=== PATIENT | male | born 1965 | race Caucasian/White ===

== ENCOUNTER → 2020-03-03 14:16 | Outpatient (CLI) | payer OTHER, SELFPAY ==
--- NOTE | ~2020-03-03 | CT_ITS ---
EXAMINATION: CT abdomen pelvis wo con EXAM DATE: 03/03/2020 14:29 INDICATION: Irreducible hernia anterior abdominal wall. TECHNIQUE: Spiral CT of the abdomen and pelvis was performed without contrast. Axial, coronal and s agittal images were reviewed. The dose-length product (DLP) for this examination was 1059.87 mGy-cm. The exposure was tailored according to patient size (auto mA exposure control), and iterative recon struction (ASIR) was used as additional dose reduction technique. There is no prior study for compar jeannette. FINDINGS: There is large multilobulated umbilical fat-containing hernia. The liver, spleen, adrenal glands and pancreas are unremarkable. Gallbladder is unremarkable. No biliary obstruction. Left hi lar calcifications, could be nonobstructing kidney stone or stones, largest measuring 6 mm. The pros jeong is unremarkable. The bladder is unremarkable. There is no retroperitoneal or pelvic lymphadeno cordelia. The appendix is normal. The stomach and small bowel are unremarkable. There is expected amount of c olonic stool. No free intraperitoneal gas. The heart is normal in size. There are no pericardial or pleural effusions. The lung bases are unremarkable. There are no osteoblastic or osteolytic les ions identified. IMPRESSION: 1. Large lobulated umbilical fat-containing hernia. 2. Left nephrolithiasis. Reviewed, dictated and finalized at location B.
== END ==
PROVIDERS: PCP Physician Assistant; Visit Provider Surgery
DX: K42.9 Umbilical hernia without obstruction or gangrene (principal); N20.0 Calculus of kidney
CPT/HCPCS: 74176

== ENCOUNTER 2020-04-22 10:17 | Outpatient (CLI) | payer OTHER, SELFPAY ==
[2020-04-22 11:00] LABS: Anion Gap 7 mmol/L (8-16); Blood Urea Nitrogen 24 mg/dL (9-20); Calcium 9.1 mg/dL (8.4-10.2); Carbon Dioxide 30 mmol/L (22-30); Chloride 103 mmol/L (98-107); Estimated Glomerular Filt Rate > 60; Glucose 123 mg/dL (75-110); Potassium 4.3 mmol/L (3.4-5.0); Sodium 140 mmol/L (137-145)
== END 2020-04-22 10:18 | disposition home or self-care (01) ==
LOC: ANHSURGERY 10:20
PROVIDERS: Anesthesiology; PCP Physician Assistant; Visit Provider Surgery
DX: Z01.812 Encounter for preprocedural laboratory examination (principal); K46.9 Unspecified abdominal hernia without obstruction or gangrene; I10 Essential (primary) hypertension
CPT/HCPCS: 36415; 80048; 86850; 86900; 86901

== ENCOUNTER 2020-04-30 01:26 | Outpatient (CLI) | payer OTHER, SELFPAY ==
[2020-04-30 19:10] LABS: SARS-CoV-2 RNA PCR Negative
== END 2020-04-30 01:27 | disposition home or self-care (01) ==
LOC: ANHCOVIDDT 01:26
PROVIDERS: PCP Physician Assistant; Visit Provider Surgery
DX: Z01.818 Encounter for other preprocedural examination (principal); Z20.828 Contact with and (suspected) exposure to other viral communicable diseases
CPT/HCPCS: 87635; C9803; U0003

== ENCOUNTER 2020-05-03 00:45 | Day surgery (SDC) | payer OTHER, SELFPAY ==
[2020-04-21 13:52] VITALS: BMI 21.5
--- NOTE | 2020-05-02 13:05 | P.PNAN_ITS ---
Anes - Initial Pre Proc Eval Procedure: Operation Date: 05/03/20 07:30 Proposed Procedures p Laparoscopic Incarcerated Ventral Hernia Repair With Mesh, Davinci Assisted - Angel Sales DO Date/Time: 05/02/20 13:05 Surgeon: Angel Sales DO Pre Op Diagnosis: Ventral hernia with obstruction/without gangrene Patient Data Age: 54 Gender: M Height: 1.87 m Weight: 75 kg Allergies Allergy/AdvReac Type Severity Reaction Status Date / Time Penicillins Allergy Unknown Unknown Verified 04/21/20 13:44 Home Medications Medication Instructions Recorded Confirmed Type hydrochlorothiazide 25 mg tablet 25 mg PO DAILY 02/02/20 04/21/20 History levothyroxine 88 mcg capsule 88 mcg PO DAILY 02/02/20 04/21/20 History nebivolol 5 mg tablet 5 mg PO DAILY 02/02/20 04/21/20 History olmesartan 40 mg tablet 40 mg PO DAILY 02/02/20 04/21/20 History Patient hx anesthesia problems: none Family hx anesthesia problems: none [facility] Past Medical History Medical History HTN (hypertension) Kidney stone Thyroid disease Surgical History Surgical History History of colonoscopy History of surgery on arm Family History Family History Father Diabetes mellitus Hypertension Dementia Mother Lung cancer Sibling Diabetes mellitus Social History Social History Smoking status: Never smoker Alcohol intake: never Substance use: unknown 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 Questions were solicited and answers provided to the satisfaction of the patient/family/POA.
[2020-05-03] VITALS (8 sets, daily range): BP systolic 107–145; BP diastolic 71–87; PULSE 52–64; RESP 8–20; TEMP 36.1–36.3; O2SAT 97–100
[2020-05-03] MEDS: LACTATED RINGERS 1,000 ML 30 ML IV CONT ×2 (06:21→11:31)
[2020-05-03 06:25] LABS: Glucose Point of Care 102 (65-105)
[2020-05-03] MEDS: ACETAMINOPHEN 500 MG TABLET 1000 MG PO (06:26)
[2020-05-03] MEDS: KETOROLAC 15 MG/ML VIAL (*BKC) IV PUSH (06:28)
--- NOTE | 2020-05-03 06:36 | ECG_ITS ---
Measurements Intervals [place] Rate: 49 P: 21 OR: 173 QRS: 69 QRSD: 124 T: 53 QT: 455 QTc: 414 Interpretive Statements SINUS BRADYCARDIA INTRAVENTRICULAR CONDUCTION DELAY BORDERLINE T WAVE ABNORMALITY- ANTERIOR LEADS BORDERLINE ECG Electronically Signed On 05-03-2020 8:08:39 KIER BOILER by Taz Barney D.O.
--- NOTE | 2020-05-03 07:04 | PM.IMHP ---
H&P: HPI History of Present Illness Date/Time: 05/03/20 07:04 Chief complaint: Ventral hernia with obstruction/without gangrene Narrative: Freddie Ling Jr. is a 54 year old male who presents for ventral hernia repair. He has a large ventral hernia that has become larger over the years. He denies any changes since last seen. Review of Systems Review of Systems: All systems reviewed & are unremarkable except as noted in HPI and below Constitutional: Constitutional: Denies chills, Denies fever(s), Denies headache(s) and Denies weight loss Eyes: Eyes: Denies change in vision ENT: Denies dizziness, Denies headache(s), Denies neck mass and Denies throat swelling Cardiovascular: Cardiovascular: Denies chest pain, Denies lightheadedness and Denies dyspnea Respiratory: Respiratory: Denies cough, Denies dyspnea and Denies wheezing Gastrointestinal: Gastrointestinal: Denies abdominal pain, Denies change in bowel habits, Denies nausea and Denies vomiting Genitourinary: Genitourinary: Denies hematuria and Denies dysuria Musculoskeletal: Musculoskeletal: Reports as per HPI Integumentary/Breasts: Skin/Breast: Reports as per HPI Neurologic: Denies dizziness and Denies headache(s) Allergic/Immunologic: Allergic/Immunologic: Denies throat swelling and Denies wheezing PMFSH Past Medical History Medical History HTN (hypertension) Kidney stone Thyroid disease Surgical History Surgical History History of colonoscopy History of surgery on arm Family History Family History Father Diabetes mellitus Hypertension Dementia Mother Lung cancer Sibling Diabetes mellitus Social History Social History Smoking status: Never smoker Alcohol intake: never Substance use: unknown Living arrangements: with family 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 Gender identity (if verbalized by the patient): Male Meds Home Medications and Allergies Home Medications Medication Instructions Recorded Confirmed Type hydrochlorothiazide 25 mg tablet 25 mg PO DAILY 02/02/20 05/03/20 History levothyroxine 88 mcg capsule 88 mcg PO DAILY 02/02/20 05/03/20 History nebivolol 5 mg tablet 5 mg PO DAILY 02/02/20 05/03/20 History olmesartan 40 mg tablet 40 mg PO DAILY 02/02/20 05/03/20 History Allergies Allergy/AdvReac Type Severity Reaction Status Date / Time Penicillins Allergy Unknown Unknown Verified 05/03/20 06:15 Vital Signs Vital Signs - 24 hr 05/03/20 06:03 Temperature 36.1 C L Pulse Rate 60 Respiratory Rate 20 Blood Pressure 145/75 H Pulse Oximetry 99 Exam Const: General: no acute distress and alert Orientation/consciousness: patient oriented x3 HENMT: Head: normocephalic and atraumatic Ears: hearing grossly normal bilaterally General nose exam: Normal nares present Mouth: Yes Normal oral and palatal mucosa present Eyes: Periorbital: periorbital findings normal Sclera: sclerae normal EOM: EOMs intact bilaterally Neck: Neck: normal visual inspection, no lymphadenopathy and trachea midline Chest: Chest palpation & inspection: normal inspection of the chest Resp: Effort & Inspection: normal respiratory effort Auscultation: clear to auscultation bilaterally Cardio: Jugular venous distension: no JVD Rate: regular rate Rhythm: regular rhythm Heart sounds: S1 normal heart sound present and S2 normal heart sound present Peripheral pulses: Peripheral pulses 2+ throughout GI: Inspection: normal to inspection GI Palp: Yes Soft to palpation, No Tenderness to palpation present (GI), No Guarding due to palpation present (GI), Yes Hernia present (6cm ventral hernia) and No Rebound tenderness present Percussion: Yes normal to percussion Auscultation: normal bowel sound
--- NOTE | 2020-05-03 07:10 | WPDHPUPDATE1 ---
History and Physical Update Update Date/Time: 05/03/20 07:10 History and Physical has been reviewed, including an updated exam of the patient. There are NO changes in the patient's condition. Risks, benefits, and alternatives have been discussed and questions answered. Patient agrees to proceed with procedure.
--- NOTE | 2020-05-03 07:12 | WPDANESPNB ---
Anes - Peripheral Nerve Block Date/Time: 05/03/20 07:12 I have discussed with the patient/family/POA the placement of a peripheral nerve block for post-operative pain management, including associated risks, benefits, complications, and side effects. Alternative methods of post-operative analgesia were detailed. Questions were solicited and answers provided to the satisfaction of the patient/family/POA. Time-Out: A pre-procedural Time-Out was completed immediately before starting the procedure and confirmed: Patient Identification, Site, Procedure, Patient Position and the Availability of Requisite Equipment. Clinical Indications: Acute post-operative pain management requested by the operative surgeon. Nerve Block Insertion Note Anes-nerve block: other (B/L SERA block) Patient position: other (sitting) Skin prep: chlorhexidine Needle: 22 gauge, stimulating, insulated echogenic needle. Needle length: 80 mm Technique: ultrasound Injectate: bupivacaine 0.25% with epi 5 mcg/ml (30cc/30cc) Observations: tolerated well Complications: none Procedure start time:: 719 Procedure end time:: 734
[2020-05-03] MEDS: ceFAZolin 2 GM/D5W 50 ML 2 GM/50 ML BAG IVPB (07:47)
--- NOTE | 2020-05-03 11:43 | PM.PROC ---
Procedure Note - Detailed Date of procedure: 05/03/20 Pre-op diagnosis: Ventral hernia with obstruction/without gangrene Post-op diagnosis: same Procedure performed: Laparoscopic Incarcerated ventral hernia repair with Symbotex mesh, da Josefa assisted Description of procedure: Procedure as well as risks, benefits, and alternatives were discussed with the patient. Written consent was obtained and placed in chart prior to procedure. Patient was brought back to surgical suite. he was placed supine on operating table. Time-out was done to confirm patient and procedure. he was then intubated by the anesthesia department. A bump was placed under his left hip, and the bed was flexed slightly to extend the space between his costal margin and iliac crest. his abdomen was prepped and draped in sterile fashion using chlorhexidine prep. A 5 millimeter incision was made in the left upper quadrant, and a 5 millimeter Optiview trocar was advanced through the abdominal layers under direct visualization. Once inside the abdominal cavity, carbon dioxide insufflation was used to create a pneumoperitoneum. his abdomen was inspected. An 8 millimeter incision was made in the left lower quadrant, and an 8 millimeter robotic trocar was placed under direct visualization. Another 8 millimeter incision was made in the left lateral abdomen, and an 8 millimeter robotic trocar was placed under direct visualization. Exparel was infiltrated along the lateral abdominal briceño to perform a transversus abdominis plane block bilaterally. The 5 millimeter port was removed, the incision was extended to 12 millimeters, and a 12 millimeter air seal port was placed under direct visualization. A Wero-Contreras cone was also used to place an 0-Vicryl simple interrupted suture at this trocar site. The robotic arms were brought up to the patient's bedside and secured to the ports. The camera and instruments were inserted, and I then moved over to the robotic console and took control of the camera and instruments. After careful thorough inspection of the abdominal cavity, I began my dissection at the hernia. the incarcerated omentum was carefully reduced with scissors with electrocautery. A wide preperitoneal pocket was then created by starting in the left upper quadrant and carefully dissected in within the preperitoneal plane, this was extended down to the hernia defect and the hernia sac was carefully reduced. I then continued the preperitoneal dissection caudally and laterally far enough to allow for mesh placement. I then measured the hernia size. The hernia measured 4 cm x 4 cm. The fascia was closed using an 1-Stratafix running suture in a vertical fashion. A 10cm x 15cm Symbotex mesh was then placed within the preperitoneal pocket. This was oriented vertically with the mesh centered on the hernia defect. The mesh was then secured at the 4 corners and in the central portion of the mesh using 3 0 Vicryl simple interrupted sutures. The mesh appeared to be sitting flat with a wide enough preperitoneal pocket to close. There were a few small tears in the peritoneum that were then repaired using 3 0 Vicryl [id number] sutures. The preperitoneal pocket was then closed using 2 0 V lock running absorbable suture. A laparoscopic aspirating needle was then inserted into the preperitoneal pocket and the air within the pocket was aspirated. The repair was inspected, and one final inspection was made around the abdominal cavity. The robotic instruments were then removed, and the robotic arms were disengaged from the trocars. The ports were then removed under direct visualization, the camera was removed, and the pneumoperitoneum was released. The 0 Vicryl transfascial suture was tied down. The skin of the incisions was then approximated using 4-0 Monocryl subcuticular suture. Exofin glue was then applied on top. The patient was then awakened from anesthesia, extubated, and transferred to re
== END 2020-05-03 13:30 | disposition home or self-care (01) ==
PROVIDERS: PCP Physician Assistant; Visit Provider Surgery
PROC: (CPT 49653; principal; 2020-05-03 07:30)
DX: K43.6 Other and unspecified ventral hernia with obstruction, without gangrene (principal); G89.18 Other acute postprocedural pain; I10 Essential (primary) hypertension; E07.9 Disorder of thyroid, unspecified
CPT/HCPCS: 49653; 64461; S2900; 36415; 80048; 86850; 86900; 86901; 87635; 93005; A9270; C1781; C9290; C9803; J0690; J1100; J1885; J2250; J2405; J2704; J2710; J3010; J7030; J7120; U0003

== ENCOUNTER 2022-11-14 20:42 | Emergency (ER) | payer OTHER, SELFPAY ==
--- NOTE | ~2022-11-14 | XR_ITS ---
EXAMINATION: XR chest 2V DATE: 11/14/2022 21:47 INDICATION: Bilateral lower limb edema TECHNIQUE: PA and lateral views of the chest are obtained. COMPARISON: None available FINDINGS: The lungs are free of acute opacities. No pleural effusion or pneumothorax. The cardiomedia stinal silhouette is normal. There is moderate thoracic spondylosis. IMPRESSION: 1. No acute cardiopulmonary abnormality. Reviewed, dictated and finalized at location F.
--- NOTE | ~2022-11-14 | US_ITS ---
EXAMINATION: US venous doppler [facility] DATE: 11/14/2022 22:58 INDICATION: Bilateral lower limb swelling TECHNIQUE: Curry scale images without and with compression and Doppler images of the bilateral lower e xtremity veins were obtained. COMPARISON: None FINDINGS: The right common femoral vein, profunda femoral vein, femoral vein, popliteal vein, peroneal trunk, p osterior tibial veins, and greater saphenous vein are patent. The left common femoral vein, profunda femoral vein, femoral vein, popliteal vein, peroneal trunk, po sterior tibial veins, and greater saphenous vein are patent. IMPRESSION: 1. Patent bilateral lower extremity veins. No evidence of deep venous thrombosis. Reviewed, dictated and finalized at location F. IMPRESSION: 1. Patent bilateral lower extremity veins. No evidence of deep venous thrombosi s.
--- NOTE | 2022-11-14 20:44 | ECG_ITS ---
Measurements Intervals [place] Rate: 63 P: 33 HI: 160 QRS: 72 QRSD: 106 T: 61 QT: 419 QTc: 432 Interpretive Statements SINUS RHYTHM COMPARED TO ECG 05/03/2020 07:19:06 SINUS RHYTHM NOW PRESENT Electronically Signed On 11-15-2022 10:51:32 CDT by Sebas James M.D.
[2022-11-14 21:07] VITALS: BP 165/84; PULSE 74; RESP 20; TEMP 36.3; O2SAT 99
[2022-11-14 21:20] LABS: Basophils Absolute Auto 0.1 K/mm3 (0.0-0.1); Basophils Percent Auto 0.8 % (0.2-1.2); Eosinophils Absolute Auto 0.2 K/mm3 (0-0.3); Eosinophils Percent Auto 2.9 % (0-4.4); Hematocrit 46.8 % (42.0-52.0); Hemoglobin 15.5 g/dL (14.0-18.0); Immature Granulocyte Absolute 0.04 K/mm3 (0.00-0.031); Immature Granulocyte Percent A 0.6 % (0-0.5); Lymphocytes Absolute Auto 2.21 K/mm3 (0.9-3.2); Lymphocytes Percent Auto 33.8 % (18.3-44.2); Mean Corpuscular HGB Conc 33.1 g/dl (32-36); Mean Corpuscular Hemoglobin 30.3 pg (26-34); Mean Corpuscular Volume 91.6 fl (80-100); Mean Platelet Volume 9.5 fl (7.4-10.4); Monocytes Absolute Auto 0.6 K/mm3 (0.1-0.6); Monocytes Percent Auto 8.9 % (2.6-8.5); Neutrophils Absolute Auto 3.5 K/mm3 (1.3-6.7); Platelet Count Result 184 k/mm3 (150-375); Red Blood Count 5.11 M/mm3 (4.6-6.20); White Blood Count 6.5 K/mm3 (4.5-10.0)
[2022-11-14 21:32] LABS: Partial Thromboplastin Time 30.3 SECONDS (22.3-36.8); Prothrombin Time 13.5 Seconds (11.1-14.7)
[2022-11-14 21:36] LABS: Alanine Aminotransferase 64 U/L (6-50); Albumin Level 4.3 g/dL (3.5-5.1); Alkaline Phosphatase 74 U/L (38-126); Anion Gap 5 mmol/L (8-16); Aspartate Amino Transferase 54 U/L (17-59); Bilirubin,Total 0.7 mg/dL (0.2-1.3); Blood Urea Nitrogen 18 mg/dL (9-20); Calcium 8.6 mg/dL (8.4-10.2); Carbon Dioxide 30 mmol/L (22-30); Chloride 103 mmol/L (98-107); Estimated CRCL calculation 100 ml/min; Estimated Glomerular Filt Rate > 60; Glucose 112 mg/dL (65-110); Potassium 4.5 mmol/L (3.4-5.0); Sodium 138 mmol/L (137-145)
[2022-11-14 21:46] LABS: NT Pro B Type Natriuretic Pept 29 pg/mL (19.9-100); Troponin I < 0.012 ng/mL (0.000-0.034)
[2022-11-14 22:06] VITALS: BP 148/87; PULSE 72; RESP 17; O2SAT 99
--- NOTE | 2022-11-14 23:54 | ED.EXTPRO ---
HPI - Extremity Problem General Chief complaint: Extremity Problem,Nontraumatic <DWAIN Ma Last Filed: 11/15/22 03:30> Stated complaint: pedal edema <DWAIN Ma Last Filed: 11/15/22 03:30> Time Seen by Provider: 11/14/22 22:14 <DWAIN Ma Last Filed: 11/15/22 03:30> Source: patient <DWAIN Ma Last Filed: 11/15/22 03:30> Mode of arrival: ambulatory <DWAIN Ma Filed: 11/15/22 03:30> Limitations: no limitations <DWAIN Ma Last Filed: 11/15/22 03:30> History of Present Illness HPI Narrative: Patient is a 57 y/o male who presents to the ED with c/o lower extremity swelling. Patient reports having intermittent issues with swelling in his lower extremities, but it has become worse over the last 1 week. Swelling is bilateral. He reports it is better in the mornings and gets worse throughout the day and after standing prolonged periods. Does improve somewhat with elevating his legs. He has had some pain in his left leg and has noticed redness and small blistering to his left anterior lower leg over the last couple of days. Patient states he called his primary care doctor and was told it may be too much sodium. He has been eating out frequently lately. Patient denies any history of CHF. Denies history of DVT. Denies chest pain or shortness of breath. Denies fevers. <DWAIN Ma Last Filed: 11/15/22 03:30> Related Data Home medications: Home Medications Medication Instructions Recorded Confirmed hydrochlorothiazide 25 mg tablet 25 mg PO DAILY 02/02/20 06/16/20 levothyroxine 88 mcg capsule 88 mcg PO DAILY 02/02/20 06/16/20 nebivolol 5 mg tablet (Bystolic) 5 mg PO DAILY 02/02/20 06/16/20 olmesartan 40 mg tablet 40 mg PO DAILY 02/02/20 06/16/20 <Anika King PA-C - Last Filed: 11/15/22 03:30> Allergies/Adverse reactions: Allergies Allergy/AdvReac Type Severity Reaction Status Date / Time Penicillins Allergy Unknown Unknown Verified 06/16/20 13:49 <Anika King PA-C - Last Filed: 11/15/22 03:30> Review of Systems Review of Systems: CONSTITUTIONAL: Denies fever, chills, or sweats. CARDIOVASCULAR: Denies chest pain, palpitations. RESPIRATORY: Denies cough or dyspnea. GASTROINTESTINAL: Denies abdominal pain, nausea, vomiting, or diarrhea. GENITOURINARY: Denies dysuria or hematuria. SKIN: See HPI. MUSCULOSKELETAL: See HPI. NEUROLOGIC: Denies headache, numbness, or weakness. <Anika King PA-C - Last Filed: 11/15/22 03:30> All systems reviewed & are unremarkable except as noted in HPI and below <Anika King PA-C - Last Filed: 11/15/22 03:30> [facility] Past Medical History Medical History: Medical History HTN (hypertension) Kidney stone Thyroid disease <Anika King PA-C - Last Filed: 11/15/22 03:30> Surgical History Surgical History: Surgical History History of colonoscopy History of surgery on arm History of ventral hernia repair 05/03/20 Laparoscopic Incarcerated ventral hernia repair with Symbotex mesh, da Josefa assisted <Anika King PA-C - Last Filed: 11/15/22 03:30> Family History Family History: Family History Father Diabetes mellitus Hypertension Dementia Mother Lung cancer Sibling Diabetes mellitus <Anika King PA-C - Last Filed: 11/15/22 03:30> Social History Social History: Social History Smoking status: Never smoker Alcohol intake: never Substance use: unknown Living arrangements: with family Occupation/Education: occupation 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
== END 2022-11-15 00:24 | disposition home or self-care (01) ==
PROVIDERS: Emergency Medicine; Emergency Provider Physician Assistant; PCP Physician Assistant
DX: R60.0 Localized edema (principal); L03.116 Cellulitis of left lower limb; I10 Essential (primary) hypertension; E07.9 Disorder of thyroid, unspecified; Z87.442 Personal history of urinary calculi
CPT/HCPCS: 36415; 71046; 80053; 83880; 84484; 85025; 85610; 85730; 93005; 93970; 99284

== ENCOUNTER 2023-04-18 11:59 | Inpatient (IN) | payer OTHER, SELFPAY ==
--- NOTE | ~2023-04-18 | XR_ITS ---
EXAMINATION: XR tibia fibula LT 2V INDICATION: Left lower limb pain and wound TECHNIQUE: Two views of the tibia and fibula are obtained on four radiographs. COMPARISON: None available FINDINGS: There is diffuse soft tissue swelling of the left lower extremity. Bone alignment is normal . No fracture is identified. Posterior and plantar calcaneal enthesophytes are noted. IMPRESSION: 1. Diffuse soft tissue swelling of the left lower extremity without acute osseous abnormality identif ied. Reviewed, dictated and finalized at location L. E HAND IMPRESSION: 1. Diffuse soft tissue swelling of the left lower extremity without acute osseo us abnormality identified.
--- NOTE | ~2023-04-18 | US_ITS ---
EXAMINATION: US arterial ankle brachial ind DATE: 04/19/2023 13:37 INDICATION: Lower limb edema, discoloration and diminished pulses TECHNIQUE: Segmental pressures and plethysmographic and Doppler waveforms of the brachial and lower e xtremity arteries were obtained. COMPARISON: None. FINDINGS: Right and left brachial artery pressures of 126 mm Hg and 118 mm Hg, respectively, are concordant (no rmal difference <= 30 mmHg). The right ankle-brachial index (PAT) is 1.35 (normal >= 0.9-1.0). The right great toe-brachial index (TBI) is 0.46 (normal >= 0.65). Arterial Doppler waveforms are biphasic with brisk systolic upstrokes at both right posterior tibial and dorsalis pedis arteries. The left PAT is unable to be obtained as patient was unable to tolerate cuff inflation at the left ca lf. The left TBI is 0.57. Arterial Doppler waveforms are biphasic with brisk systolic upstrokes at leo th left posterior tibial and dorsalis pedis arteries. IMPRESSION: 1. Mild arterial occlusive disease with normal right PAT but mildly decreased right TBI. 2. No significant arterial occlusive disease in the left lower limb with normal left TBI. Reviewed, dictated and finalized at location A. MAN IMPRESSION: 1. Mild arterial occlusive disease with normal right PAT but mildly decreased r ight TBI. 2. No significant arterial occlusive disease in the left lower limb with normal left TBI.
--- NOTE | ~2023-04-18 | US_ITS ---
EXAMINATION: US venous doppler [facility] DATE: 04/18/2023 15:24 INDICATION: Bilateral lower limb swelling TECHNIQUE: Curry scale images without and with compression and Doppler images of the bilateral lower e xtremity veins were obtained. COMPARISON: 11/14/2022 FINDINGS: The right common femoral vein, profunda femoral vein, femoral vein, popliteal vein, peroneal trunk, p osterior tibial veins, and greater saphenous vein are patent. The left common femoral vein, profunda femoral vein, femoral vein, popliteal vein, peroneal trunk, po sterior tibial veins, and greater saphenous vein are patent. IMPRESSION: 1. Patent bilateral lower extremity veins. No evidence of deep venous thrombosis. Reviewed, dictated and finalized at location L. ING CLERK IMPRESSION: 1. Patent bilateral lower extremity veins. No evidence of deep venous thrombosi s.
[2023-04-18 12:00] VITALS: BP 161/92; PULSE 84; RESP 20; TEMP 36.6; O2SAT 100
[2023-04-18 12:33] LABS: Basophils Percent Auto 0.3 % (0.2-1.2); Eosinophils Absolute Auto 0.1 K/mm3 (0-0.3); Eosinophils Percent Auto 1.2 % (0-4.4); Hematocrit 43.6 % (42.0-52.0); Hemoglobin 14.1 g/dL (14.0-18.0); Immature Granulocyte Absolute 0.02 K/mm3 (0.00-0.031); Immature Granulocyte Percent A 0.2 % (0-0.5); Lymphocytes Absolute Auto 2.36 K/mm3 (0.9-3.2); Lymphocytes Percent Auto 27.3 % (18.3-44.2); Mean Corpuscular HGB Conc 32.3 g/dl (32-36); Mean Corpuscular Hemoglobin 30.1 pg (26-34); Mean Platelet Volume 9.6 fl (7.4-10.4); Monocytes Absolute Auto 1.5 K/mm3 (0.1-0.6); Monocytes Percent Auto 17.4 % (2.6-8.5); Neutrophils Absolute Auto 4.6 K/mm3 (1.3-6.7); Neutrophils Percent Auto 53.6 % (45.5-73.1); Platelet Count Result 210 k/mm3 (150-375); Red Blood Count 4.69 M/mm3 (4.6-6.20); Red Cell Distribution Width 13.2 % (11.5-14.5); White Blood Count 8.7 K/mm3 (4.5-10.0)
--- NOTE | 2023-04-18 12:34 | ED.EXTPRO ---
HPI - Extremity Problem General Chief complaint: Extremity Problem,Nontraumatic <Jeanna Bradford PA-C - Last Filed: 04/18/23 18:04> Stated complaint: L leg/foot injury <DWAIN Tapia Last Filed: 04/18/23 18:04> Time Seen by Provider: 04/18/23 12:13 <DWAIN Tapia Last Filed: 04/18/23 18:04> History of Present Illness HPI Narrative: 57-year-old male with reported history of prediabetes, hypertension reports for evaluation for left leg swelling, erythema and lesion for the past multiple months. Patient states over the summer, he was trimming his bushes outside when he accidentally nicked his leg with a tree branch. Since then, he has developed an infection to his left lower extremity. States he was treated with antibiotics by his PCP a few months ago. He went to his PCPs office today and was sent to the ED for further evaluation. Reports worsening pain when he is on his feet all day. States he has had drainage from his wound for the past multiple months. He reports subjective fevers, body aches and chills. Denies chest pain or shortness of breath, abdominal pain, cough or congestion. <DWAIN Tapia Last Filed: 04/18/23 18:04> Related Data Home medications: Home Medications Medication Instructions Recorded Confirmed hydrochlorothiazide 25 mg tablet 25 mg PO DAILY 02/02/20 06/16/20 levothyroxine 88 mcg capsule 88 mcg PO DAILY 02/02/20 06/16/20 nebivolol 5 mg tablet (Bystolic) 5 mg PO DAILY 02/02/20 06/16/20 olmesartan 40 mg tablet 40 mg PO DAILY 02/02/20 06/16/20 <DWAIN Tapia Last Filed: 04/18/23 18:04> Allergies/Adverse reactions: Allergies Allergy/AdvReac Type Severity Reaction Status Date / Time Penicillins Allergy Unknown Unknown Verified 06/16/20 13:49 <DWAIN Tapia Last Filed: 04/18/23 18:04> Review of Systems Review of Systems: CONSTITUTIONAL: Denies fever, chills EYES: Denies visual changes, redness, or discharge. ENT: Denies rhinorrhea, congestion, sore throat, or otalgia. CARDIOVASCULAR: Denies chest pain, palpitations, or edema. RESPIRATORY: Denies cough or dyspnea. GASTROINTESTINAL: Denies abdominal pain, nausea, vomiting, or diarrhea. GENITOURINARY: Denies dysuria or hematuria. SKIN: See HPI MUSCULOSKELETAL: Denies back pain, joint pain, or myalgia. NEUROLOGIC: Denies headache, numbness, dizziness, or weakness. PSYCHIATRIC: Denies anxiety or depression. <Jeanna Bradford PA-C - Last Filed: 04/18/23 18:04> [facility] Past Medical History Medical History: Medical History HTN (hypertension) Kidney stone Thyroid disease <Jeanna Bradford PA-C - Last Filed: 04/18/23 18:04> Surgical History Surgical History: Surgical History History of colonoscopy History of surgery on arm History of ventral hernia repair 05/03/20 Laparoscopic Incarcerated ventral hernia repair with Symbotex mesh, da Josefa assisted <Jeanna Bradford PA-C - Last Filed: 04/18/23 18:04> Family History Family History: Family History Father Diabetes mellitus Hypertension Dementia Mother Lung cancer Sibling Diabetes mellitus <Jeanna Bradford PA-C - Last Filed: 04/18/23 18:04> Social History Social History: Social History Smoking status: Never smoker Alcohol intake: never Substance use: unknown Living arrangements: with family Occupation/Education: occupation 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 Patient resting comfortably in exam bed. He is pleasant and conversational.
[2023-04-18 12:41] LABS: INR 1.1; Partial Thromboplastin Time 30.5 SECONDS (22.3-36.8); Prothrombin Time 14.4 Seconds (11.1-14.7)
[2023-04-18 12:44] LABS: Lactic Acid Reflex 1.9 mmol/L (0.7-2.0)
[2023-04-18 12:48] LABS: Alanine Aminotransferase 42 U/L (6-50); Albumin Level 4.6 g/dL (3.5-5.1); Alkaline Phosphatase 86 U/L (38-126); Anion Gap 11 mmol/L (8-16); Aspartate Amino Transferase 35 U/L (17-59); Bilirubin,Total 0.8 mg/dL (0.2-1.3); Blood Urea Nitrogen 22 mg/dL (9-20); CRP 5.6 mg/dL (<1.0); Calcium 9.1 mg/dL (8.4-10.2); Carbon Dioxide 25 mmol/L (22-30); Chloride 103 mmol/L (98-107); Estimated CRCL calculation 96 ml/min; Estimated Glomerular Filt Rate > 60; Glucose 117 mg/dL (65-110); Potassium 3.5 mmol/L (3.4-5.0); Sodium 139 mmol/L (137-145)
[2023-04-18] MEDS: metroNIDAZOLE 500 MG/ISO 100ML 500 MG/100 ML BAG 100 MG IVPB ×2 (13:17→20:39)
[2023-04-18] MEDS: SODIUM CHLORIDE 0.9% IV 1,000 ML 999 ML IV CONT (13:17)
[2023-04-18] MEDS: CEFEPIME 2 GM/NS 50 ML 2 GM/50 ML BAG IVPB ×2 (13:17→20:39)
[2023-04-18 13:26] LABS: Erythrocyte Sedimentation Rate 34 mm/hr (0-20)
[2023-04-18] MEDS: VANCOMYCIN 1,250 MG/NS 250 ML 1,250 MG/250 ML BAG 166.67 MG IVPB ×2 (13:46→16:20)
[2023-04-18 16:21] VITALS: BP 136/78; PULSE 74; RESP 16; O2SAT 100
[2023-04-18 18:41] VITALS: BMI 35.6
[2023-04-18 18:58] VITALS: BP 149/75; PULSE 92; RESP 20; TEMP 36.6; O2SAT 92; BMI 35.9
--- NOTE | 2023-04-18 19:02 | ADMGEN ---
This patient, Freddie Ling Jr., was admitted to Medical Room 342-01. Patient/family oriented to hospital policies and general routines including ID bracelet, bed and alarms, visiting hours, pain management, procedures, bathroom and other care routines, personal items, smoking policy, room service/diet, and visiting hours. Information on how to activate the Rapid Response Team has been discussed. Patient/Family are encouraged to report perceived risks to care and to ask questions if they do not understand what they are told or what they should do.
[2023-04-18] MEDS: MORPHINE SULFATE (*CRX) 4 MG/ML INJ IV PUSH (20:35)
--- NOTE | 2023-04-18 21:35 | PM.IMHP ---
H&P: HPI History of Present Illness Date/Time: 04/18/23 21:35 Chief Complaint: LLE Wound and Pain Narrative: 57 y/o M presents here with LLE swelling, pain, and erythema with shallow wound/lesion with PMH HTN, pre-diabetes, HLD, and hypothyroidism. Patient reports developing erythema and a rash shortly after sustaining shallow abrasion to his left lower extremity after scrapping it against brush while doing yard work. This occured at the end of November (2022). Initially seen by his PCP for cellutitis and was placed on oral Keflex, completed course. Erythema, pain, and rash never fully disappated. Then seen by his PCP a second time for same issue, placed on oral antibiotics again and compelted the course. Rash/pain/erythema improved but did not resolve. Patient attempted to seek care today (04/18) with his PCP, sent here for further evaluation due to spreading wound to his anterior evans and failed PO atb x2. LLE is swollen, hot to the touch, with scant weeping from large shallow wound, yellow in appearance, to his anterior evans that wraps laterally and posterior. No previous hx of DVTs or PE. At baseline has chronic brown discoloration to his BLE, without diagnosis of venous or arterial insufficiency. Endorses associated fevers, body aches, chills. No N/V/D. Review of Systems Review of Systems: All systems reviewed & are unremarkable except as noted in HPI and below [facility] Past Medical History Medical History (Updated 04/18/23 @ 21:48 by Rosanna Waller APRN) Adult BMI 35.0-35.9 kg/sq m HLD (hyperlipidemia) HTN (hypertension) Hypothyroid Kidney stone Pre-diabetes Umbilical hernia with obstruction Surgical History Surgical History History of colonoscopy History of surgery on arm History of ventral hernia repair 05/03/20 Laparoscopic Incarcerated ventral hernia repair with Symbotex mesh, da Josefa assisted Family History Family History Father Diabetes mellitus Hypertension Dementia Mother Lung cancer Sibling Diabetes mellitus Social History Social History (Updated 04/18/23 @ 21:49 by Rosanna Waller APRN) Social History: Lives at home with his son and . Surrogate decision maker: Adela Ling. Code Status: Full Code. 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 Gender identity (if verbalized by the patient): Male Spiritual care concerns: Yes Meds Home Medications and Allergies Home Medications Medication Instructions Recorded Confirmed Type hydrochlorothiazide 25 mg tablet 25 mg PO DAILY 02/02/20 04/18/23 History levothyroxine 88 mcg capsule 88 mcg PO DAILY 02/02/20 04/18/23 History nebivolol 5 mg tablet (Bystolic) 5 mg PO DAILY 02/02/20 04/18/23 History olmesartan 40 mg tablet 40 mg PO DAILY 02/02/20 04/18/23 History Allergies Allergy/AdvReac Type Severity Reaction Status Date / Time Penicillins Allergy Unknown Unknown Verified 06/16/20 13:49 Vital Signs Vital Signs - 24 hr 04/18/23 12:00 04/18/23 16:21 04/18/23 18:41 Temperature 97.8 F Pulse Rate 84 74 Respiratory Rate 20 16 Blood Pressure 161/92 H 136/78 Pulse Oximetry 100 100 Oxygen Delivery Room Air Room Air 04/18/23 18:58 Temperature 97.9 F Pulse Rate 92 Respiratory Rate 20 Blood Pressure 149/75 H Pulse Oximetry 92 Oxygen Delivery Exam Const: General: comfortable and
[2023-04-19] MEDS: HYDROcodone/acetaminophen (*CRX) 5-325 MG TABLET 1 TAB PO (00:32)
[2023-04-19 03:27] VITALS: BP 118/64; PULSE 78; RESP 18; TEMP 36.5; O2SAT 97
[2023-04-19] MEDS: metroNIDAZOLE 500 MG/ISO 100ML 500 MG/100 ML BAG 100 MG IVPB ×3 (05:30→21:11)
[2023-04-19] MEDS: LEVOTHYROXINE SODIUM 88 MCG TABLET PO (05:30)
[2023-04-19] MEDS: MORPHINE SULFATE (*CRX) 2 MG/ML INJ 4 MG IV PUSH ×2 (05:43→11:24)
[2023-04-19 05:52] LABS: Basophils Percent Auto 0.5 % (0.2-1.2); Eosinophils Absolute Auto 0.2 K/mm3 (0-0.3); Eosinophils Percent Auto 1.9 % (0-4.4); Hemoglobin 12.7 g/dL (14.0-18.0); Immature Granulocyte Absolute 0.02 K/mm3 (0.00-0.031); Immature Granulocyte Percent A 0.2 % (0-0.5); Lymphocytes Absolute Auto 1.98 K/mm3 (0.9-3.2); Mean Corpuscular HGB Conc 32.6 g/dl (32-36); Mean Corpuscular Hemoglobin 30.2 pg (26-34); Mean Corpuscular Volume 92.9 fl (80-100); Mean Platelet Volume 9.7 fl (7.4-10.4); Monocytes Absolute Auto 1.2 K/mm3 (0.1-0.6); Monocytes Percent Auto 13.8 % (2.6-8.5); Neutrophils Absolute Auto 5.2 K/mm3 (1.3-6.7); Neutrophils Percent Auto 60.6 % (45.5-73.1); Platelet Count Result 181 k/mm3 (150-375); Red Cell Distribution Width 12.9 % (11.5-14.5); White Blood Count 8.6 K/mm3 (4.5-10.0)
[2023-04-19 06:09] LABS: Anion Gap 7 mmol/L (8-16); Blood Urea Nitrogen 15 mg/dL (9-20); CRP 6.7 mg/dL (<1.0); Carbon Dioxide 27 mmol/L (22-30); Chloride 101 mmol/L (98-107); Estimated CRCL calculation 107 ml/min; Estimated Glomerular Filt Rate > 60; Glucose 162 mg/dL (65-110); Potassium 3.5 mmol/L (3.4-5.0); Sodium 135 mmol/L (137-145)
[2023-04-19] MEDS: CEFEPIME 2 GM/NS 50 ML 2 GM/50 ML BAG IVPB ×2 (08:41→21:12)
[2023-04-19 08:43] VITALS: PULSE 80
[2023-04-19] MEDS: NEBIVOLOL HCL 5 MG TABLET PO (08:43)
[2023-04-19] MEDS: hydroCHLOROthiazide 25 MG TABLET PO (08:43)
[2023-04-19] MEDS: ENOXAPARIN 40 MG/0.4 ML SYRINGE SUB-Q (08:43)
[2023-04-19] MEDS: OLMESARTAN MEDOXOMIL 20 MG TABLET 40 MG PO (08:53)
[2023-04-19 09:08] LABS: Glucose Point of Care 137 mg/dl (65-105)
[2023-04-19 09:42] LABS: Erythrocyte Sedimentation Rate 49 mm/hr (0-20)
[2023-04-19 10:03] LABS: Hemoglobin A1C 6.1 % (<5.7)
--- NOTE | 2023-04-19 11:11 | PM.IMPN ---
Progress Note: A&P Assessment and Plan (1) Cellulitis: Qualifiers: Laterality: left Site of cellulitis: extremity Site of cellulitis of extremity: lower extremity Qualified Code(s): L03.116 - Cellulitis of left lower limb Code(s): L03.90 - Cellulitis, unspecified Status: Acute Assessment and Plan: Left lower extremity erythema with purulent wound, present for months. Since this has been present for months with only intermittent fever and normal white blood cell count upon along with worsening inflammatory markers, consider vasculitis. Patient is on broad-spectrum IV antibiotics and we will also prednisone. (2) Pre-diabetes: Code(s): R73.03 - Prediabetes Status: Acute Assessment and Plan: Hemoglobin A1c 6.1. Fingerstick glucose before meals and at bedtime. Expect sugar to rise with the addition of steroids. (3) HTN (hypertension): Code(s): I10 - Essential (primary) hypertension Status: Acute Assessment and Plan: Well controlled on home medications, continue home medications. Blood pressure reviewed on 04/19 (4) Peripheral vascular disease of lower extremity with ulceration: Code(s): I73.9 - Peripheral vascular disease, unspecified; L97.909 - Non-pressure chronic ulcer of unspecified part of unspecified lower leg with unspecified severity Status: Acute Assessment and Plan: Abnormal PAT/TBI indicative some level of vascular disease. Right lower extremity with chronic skin staining and left lower extremity with significant swelling and ulceration but good arterial waveform on ultrasound. Do not suspect ischemic limb. Plan Diet: Diabetic diet VT prophylaxis: Lovenox GI prophylaxis: Not indicated at this time Lines: PIV Code status: Full code Time Spent With Patient Time with patient: 25 - 35 minutes Subjective Date/time seen: 04/19/23 11:11 Interval history: From previous chart: 04/18: 57 y/o M presents here with LLE swelling, pain, and erythema with shallow wound/lesion with PMH HTN, pre-diabetes, HLD, and hypothyroidism. Patient reports developing erythema and a rash shortly after sustaining shallow abrasion to his left lower extremity after scrapping it against brush while doing yard work. This occurred at the end of November (2022).? Initially seen by his PCP for cellulitis and was placed on oral Keflex, completed course. Erythema, pain, and rash never fully dissipated. Then seen by his PCP a second time for same issue, placed on oral antibiotics again and completed the course. Rash/pain/erythema improved but did not resolve. Patient attempted to seek care today (04/18) with his PCP, sent here for further evaluation due to spreading wound to his anterior evans and failed PO atb x2. LLE is swollen, hot to the touch, with scant weeping from large shallow wound, yellow in appearance, to his anterior evans that wraps laterally and posterior. No previous hx of DVTs or PE. At baseline has chronic brown discoloration to his BLE, without diagnosis of venous or arterial insufficiency. Endorses associated fevers, body aches, chills. No N/V/D. 04/19: Patient reports continued pain to the left lower extremity especially when he ambulates. Significant swelling in erythema noted. Of note, area is very darkened purple and mostly non blanchable. There is generalized swelling the leg. Unable to obtain full PAT evaluation due to pain. Distal pulse is dopplerable and good waveform on ultrasound. As patient sustained erythema swelling only intermittent chills and this is been going on for months, question some of this is vasculitis related. We will continue broad-spectrum IV antibiotics while awaiting wound culture and blood cultures. Will also begin administration of prednisone. Review of Systems Review of Systems: All systems reviewed & are unremarkable except as noted in HPI and below Exam Narrative: GENERAL: Well-appearing, in no acute distress. Patien
[2023-04-19] MEDS: MUPIROCIN 2% OINT 22 GM TUBE 1 APPLIC TOPICAL (11:26)
[2023-04-19] MEDS: predniSONE 20 MG TABLET 60 MG PO (12:42)
[2023-04-19 12:46] LABS: Glucose Point of Care 131 mg/dl (65-105)
[2023-04-19 14:00] VITALS: BP 127/66; PULSE 75; RESP 18; TEMP 37.1; O2SAT 95
[2023-04-19 17:24] LABS: Procalcitonin 0.1 ng/mL
[2023-04-19 17:36] LABS: Glucose Point of Care 211 mg/dl (65-105)
[2023-04-19] MEDS: INSULIN ASPART (*BKC) 100 UNITS/ML SUB-Q (17:38)
[2023-04-19 21:04] VITALS: BP 114/65; PULSE 66; RESP 16; TEMP 36.6; O2SAT 99
[2023-04-19 21:51] LABS: Glucose Point of Care 168 mg/dl (65-105)
[2023-04-20 03:16] LABS: Basophils Percent Auto 0.1 % (0.2-1.2); Hematocrit 43.4 % (42.0-52.0); Immature Granulocyte Absolute 0.02 K/mm3 (0.00-0.031); Immature Granulocyte Percent A 0.2 % (0-0.5); Lymphocytes Absolute Auto 1.65 K/mm3 (0.9-3.2); Lymphocytes Percent Auto 18.8 % (18.3-44.2); Mean Corpuscular HGB Conc 32.3 g/dl (32-36); Mean Corpuscular Volume 93.1 fl (80-100); Mean Platelet Volume 9.6 fl (7.4-10.4); Monocytes Absolute Auto 0.9 K/mm3 (0.1-0.6); Monocytes Percent Auto 10.3 % (2.6-8.5); Neutrophils Absolute Auto 6.2 K/mm3 (1.3-6.7); Neutrophils Percent Auto 70.6 % (45.5-73.1); Platelet Count Result 202 k/mm3 (150-375); Red Blood Count 4.66 M/mm3 (4.6-6.20); Red Cell Distribution Width 12.6 % (11.5-14.5); White Blood Count 8.8 K/mm3 (4.5-10.0)
[2023-04-20 03:29] LABS: Alanine Aminotransferase 29 U/L (6-50); Alkaline Phosphatase 55 U/L (38-126); Anion Gap 7 mmol/L (8-16); Aspartate Amino Transferase 25 U/L (17-59); Bilirubin,Total 0.8 mg/dL (0.2-1.3); Blood Urea Nitrogen 19 mg/dL (9-20); CRP 7.9 mg/dL (<1.0); Calcium 8.3 mg/dL (8.4-10.2); Carbon Dioxide 29 mmol/L (22-30); Chloride 100 mmol/L (98-107); Estimated CRCL calculation 97 ml/min; Estimated Glomerular Filt Rate > 60; Glucose 145 mg/dL (65-110); Potassium 4.1 mmol/L (3.4-5.0); Sodium 136 mmol/L (137-145)
[2023-04-20 03:31] LABS: Vancomycin Trough 9.9 ug/mL (10.0-20.0)
[2023-04-20] MEDS: HYDROcodone/acetaminophen (*CRX) 5-325 MG TABLET 1 TAB PO ×3 (03:33→14:23)
[2023-04-20 03:50] VITALS: BP 143/73; PULSE 66; RESP 18; TEMP 36.5; O2SAT 98
[2023-04-20] MEDS: LEVOTHYROXINE SODIUM 88 MCG TABLET PO (06:18)
[2023-04-20] MEDS: metroNIDAZOLE 500 MG/ISO 100ML 500 MG/100 ML BAG 100 MG IVPB ×3 (06:18→22:33)
[2023-04-20 08:35] LABS: Glucose Point of Care 124 mg/dl (65-105)
[2023-04-20] MEDS: ENOXAPARIN 40 MG/0.4 ML SYRINGE SUB-Q (08:42)
[2023-04-20 08:43] VITALS: PULSE 78
[2023-04-20] MEDS: OLMESARTAN MEDOXOMIL 20 MG TABLET 40 MG PO (08:43)
[2023-04-20] MEDS: NEBIVOLOL HCL 5 MG TABLET PO (08:43)
[2023-04-20] MEDS: hydroCHLOROthiazide 25 MG TABLET PO (08:43)
[2023-04-20] MEDS: predniSONE 20 MG TABLET 60 MG PO (08:43)
[2023-04-20] MEDS: CEFEPIME 2 GM/NS 50 ML 2 GM/50 ML BAG IVPB ×2 (08:44→20:33)
[2023-04-20] MEDS: MUPIROCIN 2% OINT 22 GM TUBE 1 APPLIC TOPICAL (08:44)
[2023-04-20 12:25] LABS: Glucose Point of Care 194 mg/dl (65-105)
--- NOTE | 2023-04-20 12:42 | PM.IMPN ---
Progress Note: A&P Assessment and Plan (1) Cellulitis: Qualifiers: Laterality: left Site of cellulitis: extremity Site of cellulitis of extremity: lower extremity Qualified Code(s): L03.116 - Cellulitis of left lower limb Code(s): L03.90 - Cellulitis, unspecified Status: Acute Assessment and Plan: Left lower extremity erythema with purulent wound, present for months. Since this has been present for months with only intermittent fever and normal white blood cell count upon along with worsening inflammatory markers, consider vasculitis. Patient is on broad-spectrum IV antibiotics and we will also give prednisone. 04/20: Swelling significantly improved since yesterday. Remains very painful with ambulation and wound care. (2) Pre-diabetes: Code(s): R73.03 - Prediabetes Status: Acute Assessment and Plan: Hemoglobin A1c 6.1. Fingerstick glucose before meals and at bedtime. Expect sugar to rise with the addition of steroids. (3) HTN (hypertension): Code(s): I10 - Essential (primary) hypertension Status: Acute Assessment and Plan: Well controlled on home medications, continue home medications. Blood pressure reviewed on 04/20 (4) Peripheral vascular disease of lower extremity with ulceration: Code(s): I73.9 - Peripheral vascular disease, unspecified; L97.909 - Non-pressure chronic ulcer of unspecified part of unspecified lower leg with unspecified severity Status: Acute Assessment and Plan: Abnormal PAT/TBI indicative some level of vascular disease. Right lower extremity with chronic skin staining and left lower extremity with significant swelling and ulceration but good arterial waveform on ultrasound. Do not suspect ischemic limb. Plan Diet: Diabetic diet VT prophylaxis: Lovenox GI prophylaxis: Not indicated at this time Lines: PIV Code status: Full code Disposition: Expect 2 more days in the hospital on IV antibiotics before changing to oral and discharge. Blood cultures still pending negative drip to date. Wound culture identifies 3 bacteria, awaiting sensitivities. Time Spent With Patient Time with patient: 25 - 35 minutes Subjective Date/time seen: 04/20/23 12:42 Interval history: From previous chart: 04/18: 57 y/o M presents here with LLE swelling, pain, and erythema with shallow wound/lesion with PMH HTN, pre-diabetes, HLD, and hypothyroidism. Patient reports developing erythema and a rash shortly after sustaining shallow abrasion to his left lower extremity after scrapping it against brush while doing yard work. This occurred at the end of November (2022).? Initially seen by his PCP for cellulitis and was placed on oral Keflex, completed course. Erythema, pain, and rash never fully dissipated. Then seen by his PCP a second time for same issue, placed on oral antibiotics again and completed the course. Rash/pain/erythema improved but did not resolve. Patient attempted to seek care today (04/18) with his PCP, sent here for further evaluation due to spreading wound to his anterior evans and failed PO atb x2. LLE is swollen, hot to the touch, with scant weeping from large shallow wound, yellow in appearance, to his anterior evans that wraps laterally and posterior. No previous hx of DVTs or PE. At baseline has chronic brown discoloration to his BLE, without diagnosis of venous or arterial insufficiency. Endorses associated fevers, body aches, chills. No N/V/D. 04/19: Patient reports continued pain to the left lower extremity especially when he ambulates. Significant swelling in erythema noted. Of note, area is very darkened purple and mostly non blanchable. There is generalized swelling the leg. Unable to obtain full PAT evaluation due to pain. Distal pulse is dopplerable and good waveform on ultrasound. As patient sustained erythema swelling only intermittent chills and this is been going on for months, question some of this is vasculitis related
[2023-04-20 14:00] VITALS: BP 126/76; PULSE 67; RESP 16; TEMP 36.4; O2SAT 96
[2023-04-20 17:35] LABS: Glucose Point of Care 158 mg/dl (65-105)
[2023-04-20 21:12] LABS: Glucose Point of Care 209 mg/dl (65-105)
[2023-04-20 21:27] VITALS: BP 122/72; PULSE 58; RESP 18; TEMP 36.3; O2SAT 95
[2023-04-20] MEDS: INSULIN ASPART (*BKC) 100 UNITS/ML SUB-Q (22:34)
[2023-04-21 04:28] LABS: Basophils Percent Auto 0.3 % (0.2-1.2); Eosinophils Percent Auto 0.3 % (0-4.4); Hematocrit 42.1 % (42.0-52.0); Hemoglobin 13.5 g/dL (14.0-18.0); Immature Granulocyte Absolute 0.04 K/mm3 (0.00-0.031); Immature Granulocyte Percent A 0.4 % (0-0.5); Lymphocytes Absolute Auto 2.18 K/mm3 (0.9-3.2); Lymphocytes Percent Auto 19.9 % (18.3-44.2); Mean Corpuscular HGB Conc 32.1 g/dl (32-36); Mean Corpuscular Hemoglobin 29.8 pg (26-34); Mean Corpuscular Volume 92.9 fl (80-100); Mean Platelet Volume 9.8 fl (7.4-10.4); Monocytes Absolute Auto 1.3 K/mm3 (0.1-0.6); Monocytes Percent Auto 11.6 % (2.6-8.5); Neutrophils Absolute Auto 7.4 K/mm3 (1.3-6.7); Neutrophils Percent Auto 67.5 % (45.5-73.1); Platelet Count Result 224 k/mm3 (150-375); Red Blood Count 4.53 M/mm3 (4.6-6.20); Red Cell Distribution Width 12.5 % (11.5-14.5)
[2023-04-21 04:46] LABS: Alanine Aminotransferase 27 U/L (6-50); Albumin Level 3.8 g/dL (3.5-5.1); Alkaline Phosphatase 63 U/L (38-126); Anion Gap 8 mmol/L (8-16); Aspartate Amino Transferase 22 U/L (17-59); Bilirubin,Total 0.5 mg/dL (0.2-1.3); Blood Urea Nitrogen 20 mg/dL (9-20); CRP 4.5 mg/dL (<1.0); Calcium 8.5 mg/dL (8.4-10.2); Carbon Dioxide 28 mmol/L (22-30); Chloride 102 mmol/L (98-107); Estimated CRCL calculation 119 ml/min; Estimated Glomerular Filt Rate > 60; Glucose 112 mg/dL (65-110); Potassium 3.9 mmol/L (3.4-5.0); Sodium 138 mmol/L (137-145)
[2023-04-21 04:48] LABS: Vancomycin Trough 18.1 ug/mL (10.0-20.0)
[2023-04-21] MEDS: metroNIDAZOLE 500 MG/ISO 100ML 500 MG/100 ML BAG 100 MG IVPB (05:27)
[2023-04-21] MEDS: LEVOTHYROXINE SODIUM 88 MCG TABLET PO (05:27)
[2023-04-21 06:00] VITALS: BP 140/91; PULSE 58; RESP 18; TEMP 36.3; O2SAT 98
[2023-04-21] MEDS: predniSONE 20 MG TABLET 60 MG PO (08:10)
[2023-04-21 08:11] VITALS: PULSE 64
[2023-04-21] MEDS: NEBIVOLOL HCL 5 MG TABLET PO (08:11)
[2023-04-21] MEDS: hydroCHLOROthiazide 25 MG TABLET PO (08:11)
[2023-04-21] MEDS: OLMESARTAN MEDOXOMIL 20 MG TABLET 40 MG PO (08:11)
[2023-04-21] MEDS: CEFEPIME 2 GM/NS 50 ML 2 GM/50 ML BAG IVPB (08:11)
[2023-04-21] MEDS: ENOXAPARIN 40 MG/0.4 ML SYRINGE SUB-Q (08:11)
[2023-04-21 08:20] LABS: Glucose Point of Care 148 mg/dl (65-105)
--- NOTE | 2023-04-21 09:59 | PM.IMPN ---
Progress Note: A&P Assessment and Plan (1) Cellulitis: Qualifiers: Laterality: left Site of cellulitis: extremity Site of cellulitis of extremity: lower extremity Qualified Code(s): L03.116 - Cellulitis of left lower limb Code(s): L03.90 - Cellulitis, unspecified Status: Acute Assessment and Plan: Left lower extremity erythema with purulent wound, present for months. Since this has been present for months with only intermittent fever and normal white blood cell count upon along with worsening inflammatory markers, consider vasculitis. Patient is on broad-spectrum IV antibiotics and we will also give prednisone. 04/20: Swelling significantly improved since yesterday. Remains very painful with ambulation and wound care. 04/21: Continuing to see improvement in swelling, pain and wound healing. (2) Pre-diabetes: Code(s): R73.03 - Prediabetes Status: Acute Assessment and Plan: Hemoglobin A1c 6.1. Fingerstick glucose before meals and at bedtime. Expect sugar to rise with the addition of steroids. (3) HTN (hypertension): Code(s): I10 - Essential (primary) hypertension Status: Acute Assessment and Plan: Well controlled on home medications, continue home medications. Blood pressure reviewed on 04/21 (4) Peripheral vascular disease of lower extremity with ulceration: Code(s): I73.9 - Peripheral vascular disease, unspecified; L97.909 - Non-pressure chronic ulcer of unspecified part of unspecified lower leg with unspecified severity Status: Acute Assessment and Plan: Abnormal PAT/TBI indicative some level of vascular disease. Right lower extremity with chronic skin staining and left lower extremity with significant swelling and ulceration but good arterial waveform on ultrasound. Do not suspect ischemic limb. 04/21: add lipid levels to AM labs, consider statin if elevated Plan Diet: Diabetic diet VT prophylaxis: Lovenox GI prophylaxis: Not indicated at this time Lines: PIV Code status: Full code Disposition: Expect 1 more day in the hospital on IV antibiotics before changing to oral and discharge. Blood cultures still pending negative drip to date. Wound culture identifies 3 bacteria with feliz sensitivities. Time Spent With Patient Time with patient: 25 - 35 minutes Subjective Date/time seen: 04/21/23 09:59 Interval history: From previous chart: 04/18: 57 y/o M presents here with LLE swelling, pain, and erythema with shallow wound/lesion with PMH HTN, pre-diabetes, HLD, and hypothyroidism. Patient reports developing erythema and a rash shortly after sustaining shallow abrasion to his left lower extremity after scrapping it against brush while doing yard work. This occurred at the end of November (2022).? Initially seen by his PCP for cellulitis and was placed on oral Keflex, completed course. Erythema, pain, and rash never fully dissipated. Then seen by his PCP a second time for same issue, placed on oral antibiotics again and completed the course. Rash/pain/erythema improved but did not resolve. Patient attempted to seek care today (04/18) with his PCP, sent here for further evaluation due to spreading wound to his anterior evans and failed PO atb x2. LLE is swollen, hot to the touch, with scant weeping from large shallow wound, yellow in appearance, to his anterior evans that wraps laterally and posterior. No previous hx of DVTs or PE. At baseline has chronic brown discoloration to his BLE, without diagnosis of venous or arterial insufficiency. Endorses associated fevers, body aches, chills. No N/V/D. 04/19: Patient reports continued pain to the left lower extremity especially when he ambulates. Significant swelling in erythema noted. Of note, area is very darkened purple and mostly non blanchable. There is generalized swelling the leg. Unable to obtain full PAT evaluation due to pain. Distal pulse is dopplerable and good waveform on ultrasound. As govind
[2023-04-21] MEDS: HYDROcodone/acetaminophen (*CRX) 5-325 MG TABLET 1 TAB PO (10:48)
[2023-04-21] MEDS: MUPIROCIN 2% OINT 22 GM TUBE 1 APPLIC TOPICAL (10:49)
[2023-04-21 12:24] LABS: Glucose Point of Care 151 mg/dl (65-105)
[2023-04-21 14:00] VITALS: BP 121/60; PULSE 64; RESP 18; TEMP 36.4; O2SAT 95
[2023-04-21 17:25] LABS: Glucose Point of Care 188 mg/dl (65-105)
[2023-04-21 20:00] VITALS: PULSE 64; RESP 18; O2SAT 95
[2023-04-21 20:21] LABS: Glucose Point of Care 192 mg/dl (65-105)
[2023-04-21] MEDS: cefTRIAXone 2 GM/NS 100 ML 2 GM/100 ML BAG IVPB (20:23)
[2023-04-21 21:27] VITALS: BP 134/77; PULSE 59; RESP 20; TEMP 36.4; O2SAT 100
[2023-04-22] MEDS: HYDROcodone/acetaminophen (*CRX) 5-325 MG TABLET 1 TAB PO (05:28)
[2023-04-22] MEDS: LEVOTHYROXINE SODIUM 88 MCG TABLET PO (05:28)
[2023-04-22 05:34] LABS: Basophils Percent Auto 0.3 % (0.2-1.2); Eosinophils Absolute Auto 0.1 K/mm3 (0-0.3); Hematocrit 43.7 % (42.0-52.0); Hemoglobin 13.9 g/dL (14.0-18.0); Immature Granulocyte Absolute 0.04 K/mm3 (0.00-0.031); Immature Granulocyte Percent A 0.4 % (0-0.5); Lymphocytes Absolute Auto 2.39 K/mm3 (0.9-3.2); Lymphocytes Percent Auto 24.9 % (18.3-44.2); Mean Corpuscular HGB Conc 31.8 g/dl (32-36); Mean Corpuscular Volume 94.2 fl (80-100); Mean Platelet Volume 9.9 fl (7.4-10.4); Monocytes Percent Auto 10.8 % (2.6-8.5); Neutrophils Percent Auto 62.6 % (45.5-73.1); Platelet Count Result 238 k/mm3 (150-375); Red Blood Count 4.64 M/mm3 (4.6-6.20); Red Cell Distribution Width 12.7 % (11.5-14.5); White Blood Count 9.6 K/mm3 (4.5-10.0)
[2023-04-22 05:51] VITALS: BP 125/81; PULSE 55; RESP 20; TEMP 36.4; O2SAT 100
[2023-04-22 05:52] LABS: Alanine Aminotransferase 35 U/L (6-50); Albumin Level 3.7 g/dL (3.5-5.1); Alkaline Phosphatase 61 U/L (38-126); Anion Gap 6 mmol/L (8-16); Aspartate Amino Transferase 30 U/L (17-59); Bilirubin,Total 0.5 mg/dL (0.2-1.3); Blood Urea Nitrogen 25 mg/dL (9-20); CRP 2.1 mg/dL (<1.0); Calcium 8.5 mg/dL (8.4-10.2); Carbon Dioxide 28 mmol/L (22-30); Chloride 102 mmol/L (98-107); Estimated CRCL calculation 119 ml/min; Estimated Glomerular Filt Rate > 60; Glucose 116 mg/dL (65-110); Potassium 3.8 mmol/L (3.4-5.0); Sodium 136 mmol/L (137-145)
[2023-04-22 07:33] LABS: Cholesterol 156 mg/dL (0-200); HDL Direct 35 mg/dL; Triglycerides 110 mg/dL (<150)
[2023-04-22 07:44] LABS: LDL Cholesterol Direct 85 mg/dL
[2023-04-22 08:00] VITALS: O2SAT 100
[2023-04-22 08:26] LABS: Glucose Point of Care 100 mg/dl (65-105)
[2023-04-22] MEDS: predniSONE 20 MG TABLET 60 MG PO (08:43)
[2023-04-22] MEDS: ENOXAPARIN 40 MG/0.4 ML SYRINGE SUB-Q (08:43)
[2023-04-22 08:44] VITALS: PULSE 62
[2023-04-22] MEDS: hydroCHLOROthiazide 25 MG TABLET PO (08:44)
[2023-04-22] MEDS: NEBIVOLOL HCL 5 MG TABLET PO (08:44)
[2023-04-22] MEDS: OLMESARTAN MEDOXOMIL 20 MG TABLET 40 MG PO (08:44)
--- NOTE | 2023-04-22 11:39 | PM.DS ---
DS: Admitting Diagnosis Discharge Date 04/22/2023 Admitting Diagnosis cellulitis left lower extremity DS: Discharge Diagnosis Discharge Diagnosis (1) Cellulitis: Qualifiers: Laterality: left Site of cellulitis: extremity Site of cellulitis of extremity: lower extremity Qualified Code(s): L03.116 - Cellulitis of left lower limb Code(s): L03.90 - Cellulitis, unspecified Status: Acute (2) Pre-diabetes: Code(s): R73.03 - Prediabetes Status: Acute (3) HTN (hypertension): Code(s): I10 - Essential (primary) hypertension Status: Acute (4) Peripheral vascular disease of lower extremity with ulceration: Code(s): I73.9 - Peripheral vascular disease, unspecified; L97.909 - Non-pressure chronic ulcer of unspecified part of unspecified lower leg with unspecified severity Status: Acute DS: Summary Hospital Course Reason for hospitalization: Patient was admitted for left lower extremity cellulitis with large open wound with purulence drainage. Patient prediabetic. Hospital Course: 04/18:? 57 y/o M presents here with LLE swelling, pain, and erythema with shallow wound/lesion with PMH HTN, pre-diabetes, HLD, and hypothyroidism. Patient reports developing erythema and a rash shortly after sustaining shallow abrasion to his left lower extremity after scrapping it against brush while doing yard work. This occurred at the end of November (2022).? Initially seen by his PCP for cellulitis and was placed on oral Keflex, completed course. Erythema, pain, and rash never fully dissipated. Then seen by his PCP a second time for same issue, placed on oral antibiotics again and completed the course. Rash/pain/erythema improved but did not resolve. Patient attempted to seek care today (04/18) with his PCP, sent here for further evaluation due to spreading wound to his anterior evans and failed PO atb x2. LLE is swollen, hot to the touch, with scant weeping from large shallow wound, yellow in appearance, to his anterior evans that wraps laterally and posterior. No previous hx of DVTs or PE. At baseline has chronic brown discoloration to his BLE, without diagnosis of venous or arterial insufficiency. Endorses associated fevers, body aches, chills. No N/V/D. 04/19:? Patient reports continued pain to the left lower extremity especially when he ambulates.? Significant swelling in erythema noted.? Of note, area is very darkened purple and mostly non blanchable.? There is generalized swelling the leg.? Unable to obtain full PAT evaluation due to pain.? Distal pulse is dopplerable and good waveform on ultrasound.? As patient sustained erythema swelling only intermittent chills and this is been going on for months, question some of this is vasculitis related.? We will continue broad-spectrum IV antibiotics while awaiting wound culture and blood cultures.? Will also begin administration of prednisone. 04/20:? Patient reports continued pain to the left lower extremity however swelling is significantly improved.? Additionally, wound cleansing has revealed fresh tissue and is being treated topically with Bactroban.? Wound culture growing several identified bacteria, awaiting sensitivities. 04/21:? Patient reports pain and swelling left leg is improving. Wound continuing to progress in healing.? Instructed RN to include Xeroform with dressing changes to prevent gauze from sticking to healing skin.? Wound culture results show MSSA and pansensitive Klebsiella.? Antibiotics deescalated to IV Rocephin only.? WBC a bit higher today, may be due to steroids.? Patient still having limited ambulation due to pain.? PT assessment ordered.? Will continue current treatment and repeat labs in AM.? Consider discharge tomorrow on oral antibiotics and prednisone taper if he continues to progress well. 04/22: Pain and swelling her improving. Patient was evaluated by Physical therapy yesterday recommended outpatient physical therapy once a day 3-5 days per
--- NOTE | 2023-04-25 09:55 | PC.NURSE ---
Blood cultures are negative.
== END 2023-04-22 12:17 | disposition home or self-care (01) | DRG 603 ==
LOC: ANHED 18:04 → ANH3MED 18:21
PROVIDERS: Student in an Organized Health Care Education/Training Program; Admitting Provider Internal Medicine; Emergency Provider Physician Assistant; PCP Physician Assistant; Visit Provider Nurse Practitioner
DX: L03.116 Cellulitis of left lower limb (principal); B95.61 Methicillin susceptible Staphylococcus aureus infection as the cause of diseases classified elsewhere; B96.1 Klebsiella pneumoniae [K. pneumoniae] as the cause of diseases classified elsewhere; E03.9 Hypothyroidism, unspecified; E78.5 Hyperlipidemia, unspecified; I10 Essential (primary) hypertension; I73.9 Peripheral vascular disease, unspecified; R73.03 Prediabetes; Z88.0 Allergy status to penicillin
CPT/HCPCS: 36415; 73590; 80048; 80053; 80061; 80202; 82948; 83036; 83605; 84145; 84443; 85025; 85610; 85652; 85730; 86140; 87040; 87070; 87077; 87186; 87205; 93922; 93970; 96365; 96366; 96367; 96368; 96372; 96375; 96376; 97161; 99285; A9270; G0378; J0692; J0696; J1650; J1815; J1836; J2270; J3370; J7030; J7512

== ENCOUNTER 2023-12-27 19:25 | Observation (INO) | payer OTHER, SELFPAY ==
--- NOTE | ~2023-12-27 | XR_ITS ---
XR wrist LT min 3V Ordering provider: Leopoldo Marx MD History: . edema . Comparison: None. FINDINGS: BONES: No acute fracture or dislocation. No definite scaphoid fracture. JOINT SPACES: Well maintained. SOFT TISSUES: Normal. IMPRESSION: No acute osseous abnormality left wrist. Reviewed, dictated and finalized at location A.
--- NOTE | ~2023-12-27 | MR_ITS ---
EXAMINATION: MR wrist LT wo/w con DATE: 12/28/2023 12:35 INDICATION: Red inflamed left wrist joint TECHNIQUE: Magnetic resonance imaging (MRI) of the left wrist was performed without intravenous contr ast. Sequences performed include axial, sagittal and coronal T1-weighted FS FSE, axial and sagittal T 2-weighted FS FSE, and coronal PD-weighted FS FSE and postcontrast axial, sagittal and coronal T1-elisabeth ghted FS FSE COMPARISON: Radiographs dated 12/27/2023 FINDINGS: Study is somewhat limited by small amount of motion artifact or blurring on multiple sequences which affects primarily the smaller intrinsic ligaments and the components of the triangular fibrocartilage complex. No fracture or pathologic marrow replacing process. Mild osteoarthritis at the wrist joint with likel y secondary subarticular edema-like signal change along the dorsal rim of the distal radius. Addition al mild osteoarthritis at the scaphoid capitate articulation of the midcarpal joint, at the triscaphe joint and at the first carpal metacarpal joints. There is mild enhancing synovitis at the recess of the wrist and metacarpal joints without abnormal joint effusion. Moderate osteoarthritis with nonuniform, morales predominant joint space narrowing at the distal radio ulnar joint. Thin rim of enhancing synovitis at the margins of a small distal radioulnar joint effusi on. There is widening of the dorsal aspect of the joint space with suggestion of partial tear at the ulnar styloid attachment of the tiny fibrocartilage complex and of the dorsal distal radioulnar ligam ent. The central fibrocartilaginous disc and the foveal and radial attachments of the finger fibrocar tilage complex appear to remain intact. There is a tear of the ulnar side of the extensor carpi ulnaris sheath allowing ulnar subluxation of the tendon across the ulnar rim of the ECU groove and across the tip of the ulnar styloid process. Th ere is mild tenosynovitis along the extensor carpi ulnaris tendon which demonstrates mild tendinopath y and longitudinal split tear at the level of the tip of the ulnar styloid process. Remaining flexor and extensor tendons appear normal. Guyon's canal including the ulnar nerve and artery are normal. Th ere is subcutaneous edema over the dorsum of the hand. IMPRESSION: 1. Polyarticular osteoarthritis at the left hand and wrist, moderate severity with nonspecific small joint effusion at the distal radioulnar joint. 2. Additional mild osteoarthritis evident joint effusions at the wrist, midcarpal, triscaphe and firs t carpal metacarpal joints. 3. Tear dorsal radioulnar ligament and of the foveal attachment of the triangular cartilage complex. 4. Tear of the extensor carpi ulnaris sheath with ulnar subluxation of the tendon across the rim of t he ECU groove with mild tenosynovitis, mild tendinopathy and small small partial-thickness split tear . 5. Subcutaneous edema over the dorsum of the hand without abscess. Reviewed, dictated and finalized at location A. IMPRESSION: 1. Polyarticular osteoarthritis at the left hand and wrist, moderate severity w ith nonspecific small joint effusion at the distal radioulnar joint. 2. Additional mild osteoarthritis evident joint effusions at the wrist, midcarp al, triscaphe and first carpal metacarpal joints. 3. Tear dorsal radioulnar ligament and of the foveal attachment of the triangul ar cartilage complex. 4. Tear of the extensor carpi ulnaris sheath with ulnar subluxation of the tend on across the rim of the ECU groove with mild tenosynovitis, mild tendinopathy and small small partial-thickness split tear. 5. Subcutaneous edema over the dorsum of the hand without abscess.
[2023-12-27 19:31] VITALS: BP 147/76; PULSE 83; RESP 18; TEMP 36.3; O2SAT 98
[2023-12-27 19:55] LABS: Basophils Percent Auto 0.4 % (0.2-1.2); Eosinophils Absolute Auto 0.1 K/mm3 (0-0.3); Eosinophils Percent Auto 0.9 % (0-4.4); Hematocrit 44.7 % (42.0-52.0); Hemoglobin 14.7 g/dL (14.0-18.0); Immature Granulocyte Absolute 0.01 K/mm3 (0.00-0.031); Immature Granulocyte Percent A 0.1 % (0-0.5); Lymphocytes Absolute Auto 2.05 K/mm3 (0.9-3.2); Lymphocytes Percent Auto 29.6 % (18.3-44.2); Mean Corpuscular HGB Conc 32.9 g/dl (32-36); Mean Corpuscular Hemoglobin 29.6 pg (26-34); Mean Corpuscular Volume 90.1 fl (80-100); Mean Platelet Volume 9.9 fl (7.4-10.4); Monocytes Absolute Auto 0.8 K/mm3 (0.1-0.6); Neutrophils Absolute Auto 3.9 K/mm3 (1.3-6.7); Platelet Count Result 206 k/mm3 (150-375); Red Blood Count 4.96 M/mm3 (4.6-6.20); Red Cell Distribution Width 14.5 % (11.5-14.5); White Blood Count 6.9 K/mm3 (4.5-10.0)
[2023-12-27 20:07] LABS: Anion Gap 9 mmol/L (4-12); Bilirubin,Total 0.8 mg/dL (0.2-1.3); Blood Urea Nitrogen 25 mg/dL (9-20); Calcium 9.4 mg/dL (8.4-10.2); Carbon Dioxide 27 mmol/L (22-30); Chloride 100 mmol/L (98-107); Estimated CRCL calculation 100 ml/min; Estimated Glomerular Filt Rate > 60; Glucose 98 mg/dL (65-110); Potassium 4.3 mmol/L (3.4-5.0); Sodium 136 mmol/L (137-145)
[2023-12-27 20:08] LABS: Alanine Aminotransferase 24 U/L (6-50); Albumin Level 4.7 g/dL (3.5-5.1); Alkaline Phosphatase 83 U/L (38-126); Aspartate Amino Transferase 23 U/L (17-59); CRP 3.4 mg/dL (<1.0)
[2023-12-27 20:45] LABS: Erythrocyte Sedimentation Rate 50 mm/hr (0-20)
[2023-12-28] VITALS (18 sets, daily range): BP systolic 105–157; BP diastolic 53–84; PULSE 61–69; RESP 16–20; TEMP 36.2–36.6; O2SAT 97–100; BMI 37.2
--- NOTE | 2023-12-28 04:22 | ED.GENADULT ---
HPI - General Adult General Chief complaint: Extremity Problem,Nontraumatic Stated complaint: L hand swelling Time Seen by Provider: 12/28/23 01:39 History of Present Illness HPI narrative: This is a 58-year-old male presenting ED with chief complaint of left wrist pain. Patient said that several days ago he started to get swelling and pain in his left wrist. He has now developed edema around his wrist. Patient says he has been having subjective fevers although he has not taken a temperature. Patient has diabetes. No history of gout or inflammatory arthritis. Related Data Home Medications Medication Instructions Recorded Confirmed hydrochlorothiazide 25 mg tablet 25 mg PO DAILY 02/02/20 04/18/23 levothyroxine 88 mcg capsule 88 mcg PO DAILY 02/02/20 04/18/23 nebivolol 5 mg tablet (Bystolic) 5 mg PO DAILY 02/02/20 04/18/23 olmesartan 40 mg tablet 40 mg PO DAILY 02/02/20 04/18/23 Allergies Allergy/AdvReac Type Severity Reaction Status Date / Time Penicillins Allergy Unknown Unknown Verified 04/22/23 09:26 [facility] Past Medical History Medical History Adult BMI 35.0-35.9 kg/sq m HLD (hyperlipidemia) HTN (hypertension) Hypothyroid Kidney stone Pre-diabetes Umbilical hernia with obstruction Surgical History Surgical History History of colonoscopy History of surgery on arm History of ventral hernia repair 05/03/20 Laparoscopic Incarcerated ventral hernia repair with Symbotex mesh, da Josefa assisted Family History Family History Father Diabetes mellitus Hypertension Dementia Mother Lung cancer Sibling Diabetes mellitus Social History Social History Social History: Lives at home with his son and . Surrogate decision maker: Adela Anuradha. Code Status: Full Code. 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 Head: atraumatic. EYES: EOMI, NOSE: Atraumatic NECK: Trachea midline RESPIRATORY: No increased rate of breathing CARDIOVASCULAR: RRR, chronic venous stasis of the lower extremities ABDOMINAL: Non-distended MUSCULOSKELETAl: Patient's left wrist is warm, swollen and erythematous. Pain with active and passive range of motion. NEURO: Alert. Moving 4/4 extremities SKIN:: Warm, dry. Normal color PSYCHIATRIC: Normal affect Course Vital Signs Vital signs: Vital Signs Temperature 97.4 F L 12/27/23 19:31 Pulse Rate 83 12/27/23 19:31 Respiratory Rate 18 12/27/23 19:31 Blood Pressure 147/76 H 12/27/23 19:31 Pulse Oximetry 98 12/27/23 19:31 Oxygen Delivery Room Air 12/27/23 19:31 Temperature 97.4 F L 12/27/23 19:31 Pulse Rate 69 12/28/23 00:12 Respiratory Rate 18 12/28/23 00:12 Blood Pressure 153/79 H 12/28/23 02:31 Pulse Oximetry 99 12/28/23 02:31 Oxygen Delivery Room Air 12/27/23 19:31 Medical Decision Making MDM Narrative Medical decision making narrative: -Course: 58-year-old male with diabetes presenting with a red swollen wrist. No history of gout or inflammatory arthritis. ESR 50. CRP 3.4. Patient given pain control. Originally patient waited overnight to be tapped by IR in
[2023-12-28] MEDS: HYDROcodone/acetaminophen (*CRX) 5-325 MG TABLET 1 TAB PO (04:50)
[2023-12-28] MEDS: HYDROmorphone HCL INJ (*CRX) 1 MG/ML SYR 0.5 MG IV PUSH ×2 (07:46→12:53)
[2023-12-28] MEDS: cefTRIAXone 2 GM/NS 100 ML 2 GM/100 ML BAG IVPB (08:48)
[2023-12-28] MEDS: LACTATED RINGERS 1,000 ML 125 ML IV CONT (08:48)
[2023-12-28] MEDS: VANCOMYCIN 1,250 MG/NS 250 ML 1,250 MG/250 ML BAG 166.67 MG IVPB ×2 (09:05→12:49)
--- NOTE | 2023-12-28 09:36 | PC.NURSE ---
This patient, Freddie Ling Jr., was admitted to 3 [facility] Surg Room 320-01. Patient/family oriented to hospital policies and general routines including ID bracelet, bed and alarms, visiting hours, pain management, procedures, bathroom and other care routines, personal items, smoking policy, room service/diet, and visiting hours. Information on how to activate the Rapid Response Team has been discussed. Patient/Family are encouraged to report perceived risks to care and to ask questions if they do not understand what they are told or what they should do.
--- NOTE | 2023-12-28 12:11 | PM.CNOR ---
Assessment and Plan Assessment and plan (1) Septic arthritis of wrist, left: Qualifiers: Septic arthritis organism: due to unspecified organism Qualified Code(s): M00.9 - Pyogenic arthritis, unspecified Code(s): M00.9 - Pyogenic arthritis, unspecified Status: Acute Assessment and Plan: New patient evaluation for chief complaint left wrist pain and swelling. History, physical exam and radiographs reviewed with the patient. History of previous lower leg cellulitis which required Antibiotics and wound care. 3 day history left wrist swelling pain without etiology. Attempted aspiration by emergency personnel unable to obtain any fluid. Intervention radiology not available. Patient started on antibiotics. Discussed the condition, nature, etiology and course of natural history with the patient. Treatment options including surgical and nonoperative treatment were reviewed. Risks and benefits of each as well as alternatives reviewed. The patient's questions were answered. Conservative treatment ice, compression and elevation. Laboratory testing reviewed. New labs ordered. MRI of the left wrist ordered. Will follow results (2) Acute wrist pain: Qualifiers: Laterality: left Qualified Code(s): M25.532 - Pain in left wrist Code(s): M25.539 - Pain in unspecified wrist Status: Acute (3) Lower extremity edema: Code(s): R60.0 - Localized edema Status: Inactive (4) Venous stasis dermatitis of both lower extremities: Code(s): I87.2 - Venous insufficiency (chronic) (peripheral) Status: Acute (5) Peripheral vascular disease of lower extremity with ulceration: Code(s): I73.9 - Peripheral vascular disease, unspecified; L97.909 - Non-pressure chronic ulcer of unspecified part of unspecified lower leg with unspecified severity Status: Acute History of Present Illness HPI Consult date: 12/28/23 Requesting physician: Leopoldo Marx MD Chief complaint: R/O Septic Joint Narrative: 58-year-old gentleman with history of diabetes presents to emergency room 3 day history of left wrist swelling and pain. Unknown etiology. Swelling and pain worse over the past day and with activity. No known injury or activity causing problem with the wrist. History of wrist fracture as an adolescent. Had previous history leg cellulitis and open wounds last year treated with antibiotics. Denies fever, chills, changes in eating or other systemic complaints. Denies numbness and tingling. Patient is [id number]. Review of Systems Constitutional: Constitutional: Denies fever(s) Eyes: Eyes: Denies blurry vision ENT: Reports Normal hearing present Cardiovascular: Cardiovascular: Denies chest pain and Denies dyspnea Respiratory: Respiratory: Denies dyspnea and Denies wheezing Gastrointestinal: Gastrointestinal: Denies abdominal pain Genitourinary: Genitourinary: Denies urinary urgency Musculoskeletal: Musculoskeletal: Reports as per HPI and Denies numbness Integumentary/Breasts: Skin/Breast: Denies changing lesions and Denies sores Neurologic: Reports Normal hearing present, Denies behavioral changes, Denies confusion, Denies numbness and Denies convulsions Psychiatric: Psychiatric: Denies behavioral changes, Denies confusion and Denies hallucinations Endocrine: Endocrine: Denies heat intolerance Hematologic/Lymphatic: Hematologic/Lymphatic: Denies easy bleeding Allergic/Immunologic: Allergic/Immunologic: Denies wheezing [facility] Past Medical History Medical History (Updated 12/28/23 @ 12:17 by Toy Gamboa MD) Adult BMI 35.0-35.9 kg/sq m HLD (hyperlipidemia) HTN (hypertension) Hypothyroid Kidney stone Pre-diabetes Septic arthritis of wrist, left Umbilical hernia with obstruction Venous stasis dermatitis of both lower extremities Surgical History Surgical History History of colon
[2023-12-28] MEDS: IBUPROFEN IV 800 MG/200 ML 800 MG/200 ML BAG 400 MG IVPB ×3 (12:49→23:44)
--- NOTE | 2023-12-28 15:42 | PM.IMHP ---
H&P: HPI History of Present Illness Date/Time: 12/28/23 15:42 Chief Complaint: Swelling of the left wrist Narrative: Patient is a very pleasant 58-year-old with a past medical history obesity, hyperlipidemia, hypertension, hypothyroidism, chronic venous insufficiency/stasis with resultant stasis dermatitis. The patient complains of 3 days of increasing swelling of his left wrist and dorsal hand. 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 He was actually on vacations staying at home when the swelling started sporadically. Did not have any blunt trauma or open wounds, did not get bit by dog cat insect or anything else. The patient had a left wrist fracture when he was in high school. He denies any history of gout or inflammatory disease. Patient reports a few hot flashes which were very transient. Otherwise he has no complaints. He reports there might have been some redness where the swelling is but that has resolved. Minimal pain. [place] [facility] evaluation demonstrated ESR of 50, CRP 3.4. Left wrist x-ray with no acute osseous abnormality. MRI ordered as there was a plan for IR to do a aspirational diagnostic/therapeutic procedure. However it was deemed IR would not be able to on Saturday. Therefore ER physician attempted to tap but unable to retrieve fluid. Orthopedic surgeon consulted from ER. Patient admitted 12/28/2023 with antibiotics and orthopedic consultation and MRI ordered. Review of Systems Review of Systems: All systems reviewed & are unremarkable except as noted in HPI and below (Subjective) [facility] Past Medical History Medical History (Updated 12/28/23 @ 15:49 by Stephany Frederick MD) Adult BMI 35.0-35.9 kg/sq m HLD (hyperlipidemia) HTN (hypertension) Hypothyroid Kidney stone Pre-diabetes Septic arthritis of wrist, left Umbilical hernia with obstruction Venous stasis dermatitis of both lower extremities Surgical History Surgical History History of colonoscopy History of surgery on arm History of ventral hernia repair 05/03/20 Laparoscopic Incarcerated ventral hernia repair with Symbotex mesh, da Josefa assisted Family History Family History Father Diabetes mellitus Hypertension Dementia Mother Lung cancer Sibling Diabetes mellitus Social History Social History Social History: Lives at home with his son and . Surrogate decision maker: Adela Abduler. Code Status: Full Code. 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 Gender identity (if verbalized by the patient): Male Spiritual care concerns: No Meds Home Medications and Allergies Home Medications Medication Instructions Recorded Confirmed Type hydrochlorothiazide 25 mg tablet 25 mg PO DAILY 02/02/20 12/28/23 History levothyroxine 88 mcg capsule 88 mcg PO DAILY 02/02/20 12/28/23 History nebivolol 5 mg tablet (Bystolic) 5 mg PO DAILY 02/02/20 12/28/23 History olmesartan 40 mg tablet 40 mg PO DAILY 02/02/20 12/28/23 History metformin 500 mg tablet,extended 500 mg PO QACDINNER 12/28/23 12/28/23 History release 24 hr mupirocin 2 % topical ointment 1 applic topical DAILY PRN Skin 12/28/23 12/28/23 History Irritation potassium chloride 10 mEq 10 meq PO DAILY 12/28/23
[2023-12-28 17:07] LABS: Glucose Point of Care 100 mg/dl (65-105)
[2023-12-28] MEDS: VANCOMYCIN 1,500 MG/NS 500 ML 1,500 MG/500 ML BAG 250 MG IVPB (21:09)
[2023-12-28 21:23] LABS: Glucose Point of Care 109 mg/dl (65-105)
[2023-12-29] MEDS: LEVOTHYROXINE SODIUM 88 MCG TABLET PO (05:32)
[2023-12-29] MEDS: IBUPROFEN IV 800 MG/200 ML 800 MG/200 ML BAG 400 MG IVPB (05:32)
[2023-12-29 06:00] VITALS: BP 142/70; PULSE 77; RESP 16; TEMP 36.6; O2SAT 98
[2023-12-29 07:25] LABS: Glucose Point of Care 91 mg/dl (65-105)
[2023-12-29 07:29] LABS: Basophils Percent Auto 0.7 % (0.2-1.2); Eosinophils Absolute Auto 0.1 K/mm3 (0-0.3); Eosinophils Percent Auto 3.1 % (0-4.4); Hematocrit 42.1 % (42.0-52.0); Hemoglobin 13.6 g/dL (14.0-18.0); Immature Granulocyte Absolute 0.01 K/mm3 (0.00-0.031); Immature Granulocyte Percent A 0.2 % (0-0.5); Lymphocytes Absolute Auto 1.08 K/mm3 (0.9-3.2); Lymphocytes Percent Auto 23.5 % (18.3-44.2); Mean Corpuscular HGB Conc 32.3 g/dl (32-36); Mean Corpuscular Hemoglobin 29.8 pg (26-34); Mean Corpuscular Volume 92.3 fl (80-100); Monocytes Absolute Auto 0.6 K/mm3 (0.1-0.6); Monocytes Percent Auto 12.9 % (2.6-8.5); Neutrophils Absolute Auto 2.7 K/mm3 (1.3-6.7); Neutrophils Percent Auto 59.6 % (45.5-73.1); Platelet Count Result 172 k/mm3 (150-375); Red Blood Count 4.56 M/mm3 (4.6-6.20); Red Cell Distribution Width 14.4 % (11.5-14.5); White Blood Count 4.6 K/mm3 (4.5-10.0)
[2023-12-29 07:39] LABS: Hemoglobin A1C 6.2 % (<5.7)
[2023-12-29 07:52] LABS: Anion Gap 9 mmol/L (4-12); Blood Urea Nitrogen 22 mg/dL (9-20); Calcium 8.3 mg/dL (8.4-10.2); Carbon Dioxide 25 mmol/L (22-30); Chloride 104 mmol/L (98-107); Estimated CRCL calculation 120 ml/min; Estimated Glomerular Filt Rate > 60; Glucose 101 mg/dL (65-110); Sodium 138 mmol/L (137-145); Uric Acid 8.1 mg/dL (3.5-8.5)
--- NOTE | 2023-12-29 07:52 | PM.PNORT ---
Progress Note: A&P Assessment and Plan (1) Acute wrist pain: Qualifiers: Laterality: left Qualified Code(s): M25.532 - Pain in left wrist Code(s): M25.539 - Pain in unspecified wrist Status: Acute (2) Arthritis of wrist, left, degenerative: Qualifiers: Osteoarthritis type: unspecified Qualified Code(s): M19.032 - Primary osteoarthritis, left wrist Code(s): M19.032 - Primary osteoarthritis, left wrist Status: Acute Assessment and Plan: Patient notes improvement in pain and swelling today after addition IV ibuprofen, ice and elevation yesterday. MRI shows degenerative changes and nonspecific soft tissue swelling without evidence of abscess. Uric acid level pending, CRP pending. Would favor more inflammatory flare up from degenerative interchange agent infection at this point. Await lab results. If patient continues to improve, agree with discharge home with conservative treatment and follow-up in orthopedic office. Subjective Subjective Date/Time Seen: 12/29/23 07:52 Principal diagnosis: Left wrist pain and swelling Interval history: Patient awake and alert. States left wrist swelling improved this morning. Able to move fingers better. Pain controlled. Improvement in leg and foot swelling as well. Review of Systems Constitutional: Constitutional: Denies fever(s) Eyes: Eyes: Denies blurry vision ENT: Reports Normal hearing present Cardiovascular: Cardiovascular: Denies chest pain and Denies dyspnea Respiratory: Respiratory: Denies dyspnea and Denies wheezing Gastrointestinal: Gastrointestinal: Denies abdominal pain Genitourinary: Genitourinary: Denies urinary urgency Musculoskeletal: Musculoskeletal: Reports as per HPI and Denies numbness Integumentary/Breasts: Skin/Breast: Denies changing lesions and Denies sores Neurologic: Reports Normal hearing present, Denies behavioral changes, Denies confusion, Denies numbness and Denies convulsions Psychiatric: Psychiatric: Denies behavioral changes, Denies confusion and Denies hallucinations Endocrine: Endocrine: Denies heat intolerance Hematologic/Lymphatic: Hematologic/Lymphatic: Denies easy bleeding Allergic/Immunologic: Allergic/Immunologic: Denies wheezing Exam Const: General: healthy appearing; No in distress or confusion Orientation/consciousness: oriented to person, oriented to place, oriented to time and No confusion HENMT: Head: normal to inspection, normocephalic and atraumatic Eyes: Conjunctivae: conjunctivae normal Sclera: sclerae normal Neck: Neck: supple and nontender Resp: Effort & Inspection: normal respiratory effort and no audible wheezes Cardio: Rate: regular rate Rhythm: regular rhythm Skin: General skin exam: no rashes or lesions noted Neuro: General: oriented to person, oriented to place, oriented to time and No confusion Extrem: Right upper extremity: normal to inspection Left upper extremity: shoulder/upper arm no tenderness and no swelling, elbow/forearm no tenderness and no swelling, wrist tenderness of the distal radius, swelling of the dorsal wrist (moderate), abnormal ROM (decreased secondary to injury) pain with active ROM with extension and with flexion and pain with passive ROM in extension and in flexion and radial pulse present 2+ and hand normal capillary refill, neuromotor exam normal, neurosensory exam normal Details: radial nerve sensory function normal, ulnar nerve sensory function normal, median nerve sensory function normal and digital nerve sensory function normal, vascular exam normal capillary refill and abnormal ROM of finger (able to make 50% of fist) pain with active ROM Right lower extremity: edema Details: 2+ and lower leg Details: erythema Location: of the distal lower leg and pitting edema Details: 2+ Left lower extremity: edema Details: 4+ and lower leg Details: erythema Location: of the mid lower leg Location: anteriorly and of the distal lower leg
[2023-12-29 07:55] VITALS: O2SAT 98
[2023-12-29 07:58] LABS: CRP 4.2 mg/dL (<1.0)
[2023-12-29 08:40] VITALS: PULSE 85
[2023-12-29] MEDS: NEBIVOLOL HCL 5 MG TABLET PO (08:40)
[2023-12-29] MEDS: POTASSIUM CHLORIDE 10 MEQ ER TABLET PO (08:40)
[2023-12-29] MEDS: hydroCHLOROthiazide 25 MG TABLET PO (08:40)
[2023-12-29] MEDS: cefTRIAXone 2 GM/NS 100 ML 2 GM/100 ML BAG IVPB (08:41)
[2023-12-29] MEDS: OLMESARTAN MEDOXOMIL 20 MG TABLET 40 MG PO (08:41)
[2023-12-29] MEDS: VANCOMYCIN 1,500 MG/NS 500 ML 1,500 MG/500 ML BAG 150 MG IVPB (08:43)
--- NOTE | 2023-12-29 10:57 | PM.DS ---
DS: Admitting Diagnosis Discharge Date December 29, 2023 Admitting Diagnosis Left wrist swelling DS: Discharge Diagnosis Discharge Diagnosis (1) Arthritis of wrist, left, degenerative: Qualifiers: Osteoarthritis type: unspecified Qualified Code(s): M19.032 - Primary osteoarthritis, left wrist Code(s): M19.032 - Primary osteoarthritis, left wrist Status: Acute DS: Summary Hospital Course Hospital Course: Patient is a very pleasant 58-year-old with a past medical history obesity, hyperlipidemia, hypertension, hypothyroidism, chronic venous insufficiency/stasis with resultant stasis dermatitis. The patient complains of 3 days of increasing swelling of his left wrist and dorsal hand. 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 He was actually on vacations staying at home when the swelling started sporadically. Did not have any blunt trauma or open wounds, did not get bit by dog cat insect or anything else. The patient had a left wrist fracture when he was in high school. He denies any history of gout or inflammatory disease. Patient reports a few hot flashes which were very transient. Otherwise he has no complaints. He reports there might have been some redness where the swelling is but that has resolved. Minimal pain. [place] ER evaluation demonstrated ESR of 50, CRP 3.4. Left wrist x-ray with no acute osseous abnormality. MRI ordered as there was a plan for IR to do a aspirational diagnostic/therapeutic procedure. However it was deemed IR would not be able to on Saturday. Therefore ER physician attempted to tap but unable to retrieve fluid. Orthopedic surgeon consulted from ER. Patient admitted 12/28/2023 with antibiotics and orthopedic consultation and MRI ordered. ----- Patient does not have sign/symptoms of sepsis. Scheduled ibuprofen 800 mg q.6 hours greatly improved his swelling. MRI wrist demonstrating the following 1. Polyarticular osteoarthritis at the left hand and wrist, moderate severity with nonspecific small joint effusion at the distal radioulnar joint. 2. Additional mild osteoarthritis evident joint effusions at the wrist, midcarpal, triscaphe and first carpal metacarpal joints. 3. Tear dorsal radioulnar ligament and of the foveal attachment of the triangular cartilage complex. 4. Tear of the extensor carpi ulnaris sheath with ulnar subluxation of the tendon across the rim of the ECU groove with mild tenosynovitis, mild tendinopathy and small small partial-thickness split tear. 5. Subcutaneous edema over the dorsum of the hand without abscess. [place] to be arthritis related to degenerative change. Patient is stable for discharge to home. No leukocytosis. Uric acid 8.1. CRP 4.2. This has been elevated in the past. 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 Gamboa in the office. The patient is okay with this plan. He has been prescribed 10 pills of ibuprofen 600 mg t.i.d. p.r.n. for pain and swelling. Adverse effects, risk versus benefits discussed with the patient. Advised to continue ice and elevation. Blood cultures drawn on 12/27 no growth today. Advised to continue elevation of legs and compression stockings along with weight loss for his chronic venous insufficiency. Advised follow with PCP on this matter as well. Advised patient to follow-up for evaluation of onychomycosis. He agrees. He was full code. Status at Discharge Functional status at discharge: independent ambulation Overall status at discharge: patient is back to baseline Time Spent with Patient Time attestation: Total time spent providing and/or coordinating discharge services: Time spent: Greater than 30 minutes Exam Const: General: comfortable and no acute distress Other: Obese. Pleasant male. Edema of the left dorsal wrist and hand, improved. No erythema. No tenderness to palpation. No trochlear
[2023-12-29 11:51] LABS: Glucose Point of Care 105 mg/dl (65-105)
[2023-12-29 13:49] VITALS: BP 145/79; PULSE 69; RESP 20; TEMP 36.6; O2SAT 97
== END 2023-12-29 14:10 | disposition home or self-care (01) ==
LOC: ANHED 12-28 07:45 → ANH3MEDSUR 12-28 08:35
PROVIDERS: Orthopaedic Surgery; Admitting Provider General Practice; Emergency Provider Emergency Medicine; PCP Physician Assistant; Visit Provider General Practice
DX: M19.032 Primary osteoarthritis, left wrist (principal); M25.532 Pain in left wrist; R60.0 Localized edema; I87.2 Venous insufficiency (chronic) (peripheral); B35.1 Tinea unguium; I10 Essential (primary) hypertension; E11.51 Type 2 diabetes mellitus with diabetic peripheral angiopathy without gangrene; E78.5 Hyperlipidemia, unspecified; E03.9 Hypothyroidism, unspecified; Z68.37 Body mass index [BMI] 37.0-37.9, adult; Z79.84 Long term (current) use of oral hypoglycemic drugs
CPT/HCPCS: 36415; 73110; 73223; 80048; 80053; 82948; 83036; 84550; 85025; 85652; 86140; 87040; 96361; 96365; 96366; 96374; 96375; 96376; 99285; A9270; A9577; G0378; J0696; J1170; J1741; J3370; J7120

== ENCOUNTER 2025-02-04 10:42 | Emergency (ER) | payer OTHER, SELFPAY ==
[2025-02-04 10:57] VITALS: BP 127/66; PULSE 68; RESP 16; TEMP 36.4; O2SAT 100
[2025-02-04 12:00] VITALS: BP 168/92
[2025-02-04 13:13] VITALS: BP 159/124; O2SAT 100
[2025-02-04 13:22] LABS: Hematocrit 44.0 % (42.0-52.0); Hemoglobin 14.5 g/dL (14.0-18.0); Immature Granulocyte Percent A 0.3 % (0-0.5); Lymphocytes Absolute Auto 2.06 K/mm3 (0.9-3.2); Mean Corpuscular HGB Conc 33.0 g/dl (32-36); Mean Corpuscular Hemoglobin 30.4 pg (26-34); Mean Corpuscular Volume 92.2 fl (80-100); Nucleated Red Blood Cells Absolute Auto 0.000 K/mm3 (0.0-0.012); Nucleated Red Blood Cells Perc 0.0 % (0.0-0.2); Platelet Count Result 192 k/mm3 (150-375); Red Blood Count 4.77 M/mm3 (4.6-6.20); White Blood Count 6.7 K/mm3 (4.5-10.0)
[2025-02-04 13:41] LABS: Alanine Aminotransferase 42 U/L (6-50); Albumin Level 4.4 g/dL (3.5-5.1); Alkaline Phosphatase 81 U/L (38-126); Anion Gap 10 mmol/L (4-12); Aspartate Amino Transferase 45 U/L (17-59); Bilirubin,Total 0.6 mg/dL (0.2-1.3); Blood Urea Nitrogen 19 mg/dL (9-20); Calcium 9.0 mg/dL (8.4-10.2); Carbon Dioxide 26 mmol/L (22-30); Chloride 103 mmol/L (98-107); Estimated CRCL calculation 105 ml/min; Estimated Glomerular Filt Rate > 60; Glucose 118 mg/dL (65-110); Potassium 4.1 mmol/L (3.4-5.0); Sodium 139 mmol/L (137-145); Total Protein 8.1 g/dL (6.3-8.2)
[2025-02-04 13:52] LABS: NT Pro B Type Natriuretic Pept 42 pg/mL (19.9-100); Troponin I < 0.012 ng/mL (0.000-0.034)
--- NOTE | 2025-02-04 14:06 | ED.EXTPRO ---
HPI - Extremity Problem General Chief complaint: Extremity Problem,Nontraumatic Stated complaint: B/L LE swelling, weeping Time Seen by Provider: 02/04/25 12:11 Source: patient Mode of arrival: ambulatory Limitations: no limitations History of Present Illness HPI Narrative: 59-year-old with a history of hypertension, lymphedema to lower extremities here with a complains of drainage from the left leg since last 1-2 days. She denies any fever or chills no history of trauma. Denies any chest pain or shortness of breath patient he states that he started taking diet take and it is much better. MD Complaint: extremity swelling Onset (ago): day(s) (2) Pain Consistency: constant Location: left Radiation: none Relieving factors: nothing Exacerbating factors: nothing Associated symptoms: denies other symptoms Related Data Home Medications ?Medication ?Instructions ?Recorded ?Confirmed ?Last Taken ?Type hydrochlorothiazide 25 mg tablet 25 mg PO DAILY 02/02/20 01/07/24 12/27/23 History levothyroxine 88 mcg capsule 88 mcg PO DAILY 02/02/20 01/07/24 12/27/23 History nebivolol 5 mg tablet (Bystolic) 5 mg PO DAILY 02/02/20 01/07/24 12/27/23 History olmesartan 40 mg tablet 40 mg PO DAILY 02/02/20 01/07/24 12/27/23 History metformin 500 mg tablet,extended 500 mg PO QACDINNER 12/28/23 01/07/24 12/27/23 17:00 History release 24 hr mupirocin 2 % topical ointment 1 applic topical DAILY PRN Skin 12/28/23 01/07/24 Unknown History Irritation potassium chloride 10 mEq 10 meq PO DAILY 12/28/23 01/07/24 12/27/23 History tablet,extended release Allergies Allergy/AdvReac Type Severity Reaction Status Date / Time Penicillins Allergy Unknown Unknown Verified 02/04/25 10:54 Review of Systems Review of Systems: All systems reviewed & are unremarkable except as noted in HPI and below Constitutional: Constitutional: Reports no additional constitutional complaints Eyes: Eyes: Reports no additional eye complaints ENT: Reports system reviewed and no additional complaints, except as documented Cardiovascular: Cardiovascular: Reports no additional cardiovascular complaints Respiratory: Respiratory: Reports no additional respiratory complaints Gastrointestinal: Gastrointestinal: Reports no additional gastrointestinal complaints Musculoskeletal: Musculoskeletal: Reports as per HPI Integumentary/Breasts: Skin/Breast: Reports as per HPI Neurologic: Reports as per HPI Endocrine: Endocrine: Reports no additional endocrine complaints Allergic/Immunologic: Allergic/Immunologic: Reports no additional allergic/immunologic complaints [facility] Past Medical History Medical History Adult BMI 35.0-35.9 kg/sq m Arthritis of wrist, left, degenerative HLD (hyperlipidemia) HTN (hypertension) Hypothyroid Kidney stone Pre-diabetes Septic arthritis of wrist, left Umbilical hernia with obstruction Venous stasis dermatitis of both lower extremities Surgical History Surgical History History of colonoscopy History of surgery on arm History of ventral hernia repair 05/03/20 Laparoscopic Incarcerated ventral hernia repair with Symbotex mesh, da Josefa assisted Family History Family History Father Diabetes mellitus Hypertension Dementia Mother Lung cancer Sibling Diabetes mellitus Social History Social History Social History: Lives at home with his son and . Surrogate decision maker: Adela Ling. Code Status: Full Code. Smoking status: Never smoker Alcohol intake: never Substance use: never Substance use type: does not use Do You Feel Safe in your Home?: Yes Lack of Transportation: No Lack of Food: Never True Current Housing: I Have Housing Concerned About Future Housing: No Difficulty Paying Gas/Electric Bills: No Difficulty Paying for Meds: No Currently Unemployed: No Education: Decline to Answer Difficulty w/ Childcare or Family Care: No Living arrangements: with family Occupation/Education: occupation Additional occupation/education comments: R[employer] Gender identity (if verbalized by the patient): Male Spiritual care concerns: No Exam Narrative: GENERAL: Well-appearing, well-nourished, and in no acute distress. HEAD: Normocephalic, atraumatic. EYES: PERRLA and EOMI. ENT: Nares clear, no rhinorrhea or epistaxis. Mucous membranes moist. NECK: Supple. CHEST: Clear to auscultation. No respiratory distress. HEART: Regular rate and rhythm. No murmur heard. Normal peripheral pulses. ABDOMEN: Soft, nontender, nondistended, normal active bowel sounds. EXTREMITIES: Normal range of motion. Bilateral lymphedema , more on the left , no erythema very mild serous drainage. SKIN: Warm, dry, no rash. NEURO: No focal deficits. Alert and oriented x3. PSYCH: Normal mood and affect. Course Course Emergency Course: Informed him about his lab work , advised VERNON wrap continue home medications. Vital Signs Vital signs: Vital Signs Temperature 36.4 C L 02/04/25 10:57 Pulse Rate 68 02/04/25 10:57 Respiratory Rate 16 02/04/25 10:57 Blood Pressure 127/66 02/04/25 10:57 Pulse Oximetry 100 02/04/25 10:57 Oxygen Delivery Room Air 02/04/25 10:57 Temperature 36.4 C L 02/04/25 10:57 Pulse Rate 68 02/04/25 10:57 Respiratory Rate 16 02/04/25 10:57 Blood Pressure 159/124 H 02/04/25 13:13 Pulse Oximetry 100 02/04/25 13:13 Oxygen Delivery Room Air 02/04/25 10:57 MDM - Extremity (Nontraumatic) Lab Data 02/04/25 13:11 02/04/25 13:11 Labs: Lab Results 02/04/25 Range/Units 13:11 WBC 6.7 (4.5-10.0) K/mm3 RBC 4.77 (4.6-6.20) M/mm3 Hgb 14.5 (14.0-18.0) g/dL Hct 44.0 (42.0-52.0) % MCV 92.2 (80-100) fl MCH 30.4 (26-34) pg MCHC 33.0 (32-36) g/dl RDW 13.2 (11.5-14.5) % Plt Count 192 (150-375) k/mm3 MPV 9.9 (7.4-10.4) fl Immature Gran % (Auto) 0.3 (0-0.5) % Neut % (Auto) 51.0 (45.5-73.1) % Lymph % (Auto) 30.9 (18.3-44.2) % [place] % (Auto) 15.0 H (2.6-8.5) % Eos % (Auto) 2.0 (0-4.4) % Baso % (Auto) 0.8 (0.2-1.2) % Lymph # (Auto) 2.06 (0.9-3.2) K/mm3 [place] # (Auto) 1.0 H (0.1-0.6) K/mm3 Eos # (Auto) 0.1 (0-0.3) K/mm3 Baso # (Auto) 0.1 (0.0-0.1) K/mm3 Abs Immat Gran (auto) 0.02 (0.00-0.031) K/mm3 Absolute Neuts (auto) 3.4 (1.3-6.7) K/mm3 Absolute Nucleated RBC 0.000 (0.0-0.012) K/mm3 Nucleated RBC % 0.0 (0.0-0.2) % Sodium 139 (137-145) mmol/L Potassium 4.1 (3.4-5.0) mmol/L Chloride 103 (98-107) mmol/L Carbon Dioxide 26 (22-30) mmol/L Anion Gap 10 (4-12) mmol/L BUN 19 (9-20) mg/dL Creatinine 0.92 (0.7-1.3) mg/dL Estim Creat Clear Calc 105 ml/min Estimated GFR > 60 (59 - ) Glucose 118 H (65-110) mg/dL Calcium 9.0 (8.4-10.2) mg/dL Total Bilirubin 0.6 (0.2-1.3) mg/dL AST 45 (17-59) U/L ALT 42 (6-50) U/L Alkaline Phosphatase 81 (38-126) U/L Troponin I < 0.012 (0.000-0.034) ng/mL NT-Pro-B Natriuret Pep 42 (19.9-100) pg/mL Total Protein 8.1 (6.3-8.2) g/dL Albumin 4.4 (3.5-5.1) g/dL Discharge Plan Discharge Clinical Impression: Lymphedema Patient Disposition: Home Condition: Stable Instructions: Lymphedema (ED) Additional Instructions: Hold HCTZ for few days instead take Lasix continue home medications , wear compression stockings , follow with your doctor in 1 wk , return to ER if you develop fever . Patient Language: [place] Citizen Prescriptions: New furosemide [Lasix] 40 mg tablet 40 mg PO DAILY Qty: 14 0RF No Action levothyroxine 88 mcg capsule 88 mcg PO DAILY hydrochlorothiazide 25 mg tablet 25 mg PO DAILY olmesartan 40 mg tablet 40 mg PO DAILY Bystolic 5 mg tablet 5 mg PO DAILY ibuprofen 600 mg tablet 600 mg PO TID PRN (Reason: pain and swelling) Qty: 60 1RF potassium chloride 10 mEq tablet extended release 10 meq PO DAILY metformin 500 mg tablet extended release 24 hr 500 mg PO QACDINNER mupirocin 2 % ointment 1 applic topical DAILY PRN (Reason: Skin Irritation) Follow-up/Referrals: Mitzi,DWAIN Vizcaino [Primary Care Provider, Unknown] Time of Disposition: 14:10
[2025-02-04 14:07] VITALS: BP 182/94; PULSE 56; RESP 16; O2SAT 100
[2025-02-04 14:17] VITALS: BP 145/87; PULSE 57; RESP 20; TEMP 36.7; O2SAT 96
== END 2025-02-04 14:23 | disposition home or self-care (01) ==
PROVIDERS: Emergency Provider Family Medicine; PCP Physician Assistant
DX: I89.0 Lymphedema, not elsewhere classified (principal); I10 Essential (primary) hypertension; E78.5 Hyperlipidemia, unspecified; E03.9 Hypothyroidism, unspecified; M17.12 Unilateral primary osteoarthritis, left knee; R73.03 Prediabetes; Z87.442 Personal history of urinary calculi; Z79.84 Long term (current) use of oral hypoglycemic drugs; Z79.899 Other long term (current) drug therapy
CPT/HCPCS: 36415; 80053; 83880; 84484; 85025; 99284

== ENCOUNTER 2025-04-22 18:25 | Emergency (ER) | payer OTHER, SELFPAY ==
--- NOTE | ~2025-04-22 | XR_ITS ---
XR chest 2V HOSTORY: LE edema COMPARISON:[ None] FINDINGS: Frontal and lateral views of the chest were obtained. The lungs are clear. The heart size is normal in size. Pulmonary vasculature is unremarkable. Osseous structures are intact. IMPRESSION: No acute lung findings.] [ ] Reviewed, dictated and finalized at location S. ATING MACHINE OPERATOR
--- OUTSIDE RECORDS SUMMARY | 2025-04-22 18:27 | XMS_ITS | Data Portability ---
[facility] Organization [facility] Address [address] [place] [address] Care Team Providers Care Concrete Panel Installer Name Role Phone KATIA POLO Primary Care Provider Unavailab le Assessment No assessment recorded. Plan of Treatment Reminders Order Date Submit Date Provider Last Modified By Organization Details Last Modified Time Details Appointments ANY 30 2024 11:00A M NIKOLAS Mccallum Not available Not available Not available Lab lipid panel, serum 2024 025 TR [facility], [address] [place] [address], [address], 04/10/2025 11:08:08 CMP, serum or plasma 2024 025 [facility], [address] [place] [address], [place], [address], 04/10/2025 11:08:10 CBC w/ auto diff 2024 025 TR [facility], [address] [place] [address], [place], [address], 04/10/2025 11:08:11 HbA1c (hemoglob in A1c), blood 2024 025 TR [facility], [address] [place] [address], [facility], [place], [address], 04/10/2025 11:08:10 microalbu min, urine 2024 025 [email or web address] [facility], [address] [place] [address], [place], [address], 04/14/2025 14:40:30 albumin/c reatinine , mass ratio, urine 2024 025 TR [facility], [address] [place] [address], [place], [address], 04/10/2025 11:08:08 TSH + free T4, serum 2024 025 TR [facility], [address] [place] [address], [place], [address], 04/10/2025 11:08:09 lipid panel, serum 2024 025 [email or web address] [facility], [address] [place] [address], [place], [address], 04/10/2025 20:28:39 CMP, serum or plasma 2024 025 [email or web address] [facility], [address] [place] [address], [place], [address], 04/10/2025 20:28:39 CBC w/ auto diff 2024 025 [email or web address] [facility], [address] [place] [address], [place], [address], 04/10/2025 20:28:39 HbA1c (hemoglob in A1c), blood 2024 025 [facility], [address] [place] [address], [place], [address], 04/08/2025 08:43:19 microalbu min, urine 2024 025 [email or web address] [facility], [address] [place] [address], [place], [address], 04/08/2025 08:44:07 albumin/c reatinine , mass ratio, urine 2024 025 [email or web address] [facility], [address] [place] [address], [facility], [place], [address], 04/08/2025 08:44:15 TSH + free T4, serum 2024 025 [email or web address] [facility], [address] [facility], [facility], [place], [address], 04/08/2025 08:43:27 PSA, total, serum or plasma 2023 025 TR [facility], [address] [place] [address], [facility], [place], [address], 08/18/2024 13:08:40 lipid panel, serum 2023 025 TR [facility], [address] [place] [address], [facility], [place], [address], 08/18/2024 13:08:36 CMP, serum or plasma 2023 025 TR [facility], [address] [place] [place] [address] 2, [place], [address], 08/18/2024 13:08:37 CBC w/ auto diff 2023 025 [facility], [address] [place] [address], [facility], [place], [address], 08/18/2024 13:08:39 HbA1c (hemoglob in A1c), blood 2023 025 TR [facility], [address] [place] [place] [address] 2, [place], [address], 08/18/2024 13:08:38 TSH + free T4, serum 2023 025 TR [facility], [address] [place] [address], [facility], [place], [address], 08/18/2024 13:08:35 CMP, serum or plasma 2023 024 [facility], [address] [place] [address] 2, [place], [address], 03/12/2024 04:36:41 CBC w/ auto diff 2023 024 TR [facility], [address], [place], [address], 03/12/2024 04:36:42 HbA1c (hemoglob in A1c), blood 2023 024 TR [facility], [address], [place], [address], 03/12/2024 04:36:41 microalbu min, urine 2023 024 TR [facility], [address], [place], [address], 03/12/2024 04:36:40 TSH + free T4, serum 2023 024 TR [facility], [address], [place], [address], 03/12/2024 04:36:40 HbA1c (hemoglob in A1c), blood 2023 024 [facility], [address], [place], [address], 10/29/2023 03:37:37 lipid panel, serum 2023 024 TR [facility], [facility], [address], [place], [address], 10/29/2023 03:37:36 CMP, serum or plasma 2023 024 TR [facility], [address], [place], [address], 10/29/2023 03:37:37 CBC w/ auto diff 2023 024 [facility], [address] [facility] [address], [place], [address], 10/29/2023 03:37:38 TSH + free T4, serum 2023 024 CEDAR [facility], [address] [facility], [address], [place], [address], 10/29/2023 03:37:36 Referral None recorded. Procedures colonosco py screening (PROC) 2024 [facility], [address], [address], [place], [address], 04/09/2025 09:42:57 colonosco py screening (PROC) [address] - Gastroenterol ogy, [address], [address], [place], [address], 04/08/2025 10:02:26 Surgeries None recorded. Imaging None recorded. Medication Orders nebivolol 5 mg tablet 2024 [facility] #[id number], [address] [place], [address], 04/08/2025 09:38:01 olmesarta n 40 mg tablet 2024 [facility] #[id number], [address] [place], [address], 04/08/2025 09:38:01 metolazon e 2.5 mg tablet 2024 [facility] #[id number], [address] [place], [address], 04/08/2025 09:33:55 potassium chloride ER 10 mEq tablet,ex tended release 2024 [facility] #[id number], [address] [place], [address], 04/08/2025 09:33:56 furosemid e 40 mg tablet 2024 025 [id number], [address], [place], [address], 04/08/2025 09:33:55 mupirocin 2 % topical ointment 2024 025 [id number], [address] [place], [address], 09/14/2024 13:08:44 olmesarta n 40 mg tablet 2024 025 [email or web address] [id number], [address] [place], [address], 04/08/2025 09:03:14 metolazon e 2.5 mg tablet 2024 025 [email or web address] [id number], [address] [place], [address], 09/23/2024 09:31:18 furosemid e 40 mg tablet 2023 024 [id number], [address], [place], [address], 09/30/2023 16:58:59 potassium chloride ER 10 mEq tablet,ex tended release 2023 024 [id number], [address] [place], [address], 09/30/2023 16:58:59 Patient TargetsNo targets recorded. Patient Instructions Encounter Date Encounter Id Patient Instructions Last Modified By Organization Details Last Modified Time 09/30/2023 [id number] A healthy lifestyle: care instructions Not available 10/09/2023 00:55:13 01/01/2024 [id number] A healthy lifestyle: care instructions Not available 01/01/2024 11:14:06 09/14/2024 [id number] A healthy lifestyle: care instructions Not available 09/14/2024 13:08:36 04/08/2025 [id number] A healthy lifestyle: care instructions Not available 04/08/2025 09:33:52 Reason for Referral None Reported. Results Created Date Observation Date Name Description Value Unit Range Abnormal Flag Note LastModifiedBy Organization Detail LastModifiedTime 10/28/19 24 10/29/2023 TSH+F REE T4 TSH 4.940 uIU/m L 0.450- 4.500 above high normal Not Available [facility] ([facility]) [address] [place], [address], 10/29/2023 03:37:35 10/28/19 24 10/29/2023 TSH+F REE T4 T4,free(dire ct) 1.46 NG/dL 0.82-1 .77 Not Available [facility] ([facility]) [address] [place], [address], 10/29/2023 03:37:35 10/28/19 24 10/29/2023 LIPID PANEL WITH LDL/H DL RATIO cholesterol, total 149 mg/dL 100-19 9 Not Available [facility] ([facility]) [address] [place], [address], 10/29/2023 03:37:36 10/28/19 24 10/29/2023 LIPID PANEL WITH LDL/H DL RATIO triglyceride s 201 mg/dL 0-149 above high normal Not Available [facility] ([facility]) [address] [place], [address], 10/29/2023 03:37:36 10/28/19 24 10/29/2023 LIPID PANEL WITH LDL/H DL RATIO HDL cholesterol 35 mg/dL >39 below low normal Not Available [facility] ([facility]) [address] [place], [address], 10/29/2023 03:37:36 10/28/19 24 10/29/2023 LIPID PANEL WITH LDL/H DL RATIO VLDL cholesterol leni 34 mg/dL 5-40 Not Available [facility] ([facility]) [address] [place], [address], 10/29/2023 03:37:36 10/28/19 24 10/29/2023 LIPID PANEL WITH LDL/H DL RATIO [facility] mg/dL 0-99 Not Available [facility] ([facility]) [address] [place], [address], 10/29/2023 03:37:36 10/28/19 24 10/29/2023 LIPID PANEL WITH LDL/H DL RATIO LDL/HDL ratio 2.3 ratio 0.0-3. 6 LDL/H DL Ratio Men Women 1/2 Avg.R isk 1.0 1.5 Avg.R isk 3.6 3.2 2X Avg.R isk 6.2 5.0 3X Avg.R isk 8.0 6.1 Not Available [facility] ([facility]) [address] [place], [address], 10/29/2023 03:37:36 10/28/19 24 10/29/2023 COMP. METAB OLIC PANEL (14) glucose 100 mg/dL 70-99 above high normal Not Available [facility] ([facility]) [address] [place], [address], 10/29/2023 03:37:37 10/28/19 24 10/29/2023 COMP. METAB OLIC PANEL (14) BUN 25 mg/dL 8-27 Not Available [facility] ([facility]) [address] [place], [address], 10/29/2023 03:37:37 10/28/19 24 10/29/2023 COMP. METAB OLIC PANEL (14) creatinine 1.04 mg/dL 0.76-1 .27 Not Available [facility] ([facility]) [address] [place], [address], 10/29/2023 03:37:37 10/28/19 24 10/29/2023 COMP. METAB OLIC PANEL (14) eGFR 82 mL/mi n/1.7 3 >59 Not Available [facility] ([facility]) [address] [facility], [place], [address], 10/29/2023 03:37:37 10/28/19 24 10/29/2023 COMP. METAB OLIC PANEL (14) BUN/creatini ne ratio 24 10-24 Not Available [facility] ([facility]) [address] [facility], [place], [address], 10/29/2023 03:37:37 10/28/19 24 10/29/2023 COMP. METAB OLIC PANEL (14) sodium 138 mmol/ L 134-14 4 Not Available [facility] ([facility]) [address] [facility], [place], [address], 10/29/2023 03:37:37 10/28/19 24 10/29/2023 COMP. METAB OLIC PANEL (14) potassium 4.1 mmol/ L 3.5-5. 2 Not Available [facility] ([facility]) [address] [facility], [place], [address], 10/29/2023 03:37:37 10/28/19 24 10/29/2023 COMP. METAB OLIC PANEL (14) chloride 96 mmol/ L 96-106 Not Available [facility] ([facility]) [address] [facility], [place], [address], 10/29/2023 03:37:37 10/28/19 24 10/29/2023 COMP. METAB OLIC PANEL (14) carbon dioxide, total 25 mmol/ L 20-29 Not Available [facility] ([facility]) [address] [facility], [place], [address], 10/29/2023 03:37:37 10/28/19 24 10/29/2023 COMP. METAB OLIC PANEL (14) calcium 9.7 mg/dL 8.6-10 .2 Not Available [facility] ([facility]) [address] [place], [address], 10/29/2023 03:37:37 10/28/19 24 10/29/2023 COMP. METAB OLIC PANEL (14) protein, total 7.3 g/dL 6.0-8. 5 Not Available [facility] ([facility]) [address] [place], [address], 10/29/2023 03:37:37 10/28/19 24 10/29/2023 COMP. METAB OLIC PANEL (14) albumin 4.3 g/dL 3.8-4. 9 Not Available [facility] ([facility]) [address] [place], [address], 10/29/2023 03:37:37 10/28/19 24 10/29/2023 COMP. METAB OLIC PANEL (14) globulin, total 3.0 g/dL 1.5-4. 5 Not Available [facility] ([facility]) [address] [place], [address], 10/29/2023 03:37:37 10/28/19 24 10/29/2023 COMP. METAB OLIC PANEL (14) A/G ratio 1.4 1.2-2. 2 Not Available [facility] ([facility]) [address] [place], [address], 10/29/2023 03:37:37 10/28/19 24 10/29/2023 COMP. METAB OLIC PANEL (14) bilirubin, total 0.7 mg/dL 0.0-1. 2 Not Available [facility] ([facility]) [address] [place], [address], 10/29/2023 03:37:37 10/28/19 24 10/29/2023 COMP. METAB OLIC PANEL (14) alkaline phosphatase 90 IU/L 44-121 Not Available [facility] ([facility]) [address] [facility] [place], [address], 10/29/2023 03:37:37 10/28/19 24 10/29/2023 COMP. METAB OLIC PANEL (14) AST (SGOT) 28 IU/L 0-40 Not Available [facility] ([facility]) [address] [facility] [place], [address], 10/29/2023 03:37:37 10/28/19 24 10/29/2023 COMP. METAB OLIC PANEL (14) ALT (SGPT) 37 IU/L 0-44 Not Available [facility] ([facility]) [address] [place], [address], 10/29/2023 03:37:37 10/28/19 24 10/29/2023 HEMOG LOBIN A1C hemoglobin A1C 6.6 % 4.8-5. 6 above high normal Predi abete s: 5.7 - 6.4 Diabe stew: >6.4 Glyce cedric contr ol for adult s with diabe stew: <7.0 Not Available [facility] ([facility]) [address] [place], [address], 10/29/2023 03:37:37 10/28/19 24 10/29/2023 CBC WITH DIFFE RENTI AL/PL ATELE T WBC 6.2 x10e3 /uL 3.4-10 .8 Not Available [facility] ([facility]) [address] [place], [address], 10/29/2023 03:37:38 10/28/19 24 10/29/2023 CBC WITH DIFFE RENTI AL/PL ATELE T RBC 5.30 x10e6 /uL 4.14-5 .80 Not Available [facility] ([facility]) [address] [place], [address], 10/29/2023 03:37:38 10/28/19 24 10/29/2023 CBC WITH DIFFE RENTI AL/PL ATELE T hemoglobin 15.3 g/dL 13.0-1 7.7 Not Available [facility] ([facility]) [address] [place], [address], 10/29/2023 03:37:38 10/28/19 24 10/29/2023 CBC WITH DIFFE RENTI AL/PL ATELE T hematocrit 46.7 % 37.5-5 1.0 Not Available [facility] ([facility]) [address] [place], [address], 10/29/2023 03:37:38 10/28/19 24 10/29/2023 CBC WITH DIFFE RENTI AL/PL ATELE T MCV 88 fL 79-97 Not Available [facility] ([facility]) [address] [place], [address], 10/29/2023 03:37:38 10/28/19 24 10/29/2023 CBC WITH DIFFE RENTI AL/PL ATELE T MCH 28.9 pg 26.6-3 3.0 Not Available [facility] ([facility]) [address] [place], [address], 10/29/2023 03:37:38 10/28/19 24 10/29/2023 CBC WITH DIFFE RENTI AL/PL ATELE T MCHC 32.8 g/dL 31.5-3 5.7 Not Available [facility] ([facility]) [address] [place], [address], 10/29/2023 03:37:38 10/28/19 24 10/29/2023 CBC WITH DIFFE RENTI AL/PL ATELE T RDW 13.7 % 11.6-1 5.4 Not Available [facility] ([facility]) [address] [place], [address], 10/29/2023 03:37:38 10/28/19 24 10/29/2023 CBC WITH DIFFE RENTI AL/PL ATELE T platelets 222 x10e3 /uL 150-45 0 Not Available [facility] ([facility]) [address] [facility], [place], [address], 10/29/2023 03:37:38 10/28/19 24 10/29/2023 CBC WITH DIFFE RENTI AL/PL ATELE T neutrophils 49 % notest ab. Not Available [facility] ([facility]) [address] [facility], [place], [address], 10/29/2023 03:37:38 10/28/19 24 10/29/2023 CBC WITH DIFFE RENTI AL/PL ATELE T lymphs 40 % notest ab. Not Available [facility] ([facility]) [address] [facility], [place], [address], 10/29/2023 03:37:38 10/28/19 24 10/29/2023 CBC WITH DIFFE RENTI AL/PL ATELE T monocytes 9 % notest ab. Not Available [facility] ([facility]) [address] [place], [address], 10/29/2023 03:37:38 10/28/19 24 10/29/2023 CBC WITH DIFFE RENTI AL/PL ATELE T eos 1 % notest ab. Not Available [facility] ([facility]) [address] [facility], [place], [address], 10/29/2023 03:37:38 10/28/19 24 10/29/2023 CBC WITH DIFFE RENTI AL/PL ATELE T basos 1 % notest ab. Not Available [facility] ([facility]) [address] [facility], [place], [address], 10/29/2023 03:37:38 10/28/19 24 10/29/2023 CBC WITH DIFFE RENTI AL/PL ATELE T neutrophils (absolute) 3.0 x10e3 /uL 1.4-7. 0 Not Available [facility] ([facility]) [address] [facility], [place], [address], 10/29/2023 03:37:38 10/28/19 24 10/29/2023 CBC WITH DIFFE RENTI AL/PL ATELE T lymphs (absolute) 2.5 x10e3 /uL 0.7-3. 1 Not Available [facility] ([facility]) [address] [facility], [place], [address], 10/29/2023 03:37:38 10/28/19 24 10/29/2023 CBC WITH DIFFE RENTI AL/PL ATELE T monocytes(ab solute) 0.6 x10e3 /uL 0.1-0. 9 Not Available [facility] ([facility]) [address] [facility], [place], [address], 10/29/2023 03:37:38 10/28/19 24 10/29/2023 CBC WITH DIFFE RENTI AL/PL ATELE T eos (absolute) 0.1 x10e3 /uL 0.0-0. 4 Not Available [facility] ([facility]) [address] [facility], [place], [address], 10/29/2023 03:37:38 10/28/19 24 10/29/2023 CBC WITH DIFFE RENTI AL/PL ATELE T baso (absolute) 0.1 x10e3 /uL 0.0-0. 2 Not Available [facility] ([facility]) [address] [facility], [place], [address], 10/29/2023 03:37:38 10/28/19 24 10/29/2023 CBC WITH DIFFE RENTI AL/PL ATELE T immature granulocytes 0 % notest ab. Not Available [facility] ([facility]) [address] [facility], [place], [address], 10/29/2023 03:37:38 10/28/19 24 10/29/2023 CBC WITH DIFFE RENTI AL/PL ATELE T immature grans (abs) 0.0 x10e3 /uL 0.0-0. 1 Not Available [facility] ([facility]) [address] [facility], [place], [address], 10/29/2023 03:37:38 03/11/20 24 03/12/2024 ALBUM IN, RANDO M URINE albumin, urine <3.0 ug/mL notest ab. Not Available [facility] ([facility]) [address] [facility], [place], [address], 03/12/2024 04:36:40 03/11/2003/12/2024 TSH+F REE T4 TSH 2.850 uIU/m L 0.450- 4.500 Not Available [facility] ([facility]) [address] [facility], [place], [address], 03/12/2024 04:36:40 03/11/20 24 03/12/2024 TSH+F REE T4 T4,free(dire ct) 1.48 NG/dL 0.82-1 .77 Not Available [facility] ([facility]) [address] [place], [address], 03/12/2024 04:36:40 03/11/20 24 03/12/2024 COMP. METAB OLIC PANEL (14) glucose 101 mg/dL 70-99 above high normal Not Available [facility] ([facility]) [address] [place], [address], 03/12/2024 04:36:41 03/11/20 24 03/12/2024 COMP. METAB OLIC PANEL (14) BUN 18 mg/dL 8-27 Not Available [facility] ([facility]) [address] [place], [address], 03/12/2024 04:36:41 03/11/20 24 03/12/2024 COMP. METAB OLIC PANEL (14) creatinine 1.03 mg/dL 0.76-1 .27 Not Available [facility] ([facility]) [address] [place], [address], 03/12/2024 04:36:41 03/11/20 24 03/12/2024 COMP. METAB OLIC PANEL (14) eGFR 83 mL/mi n/1.7 3 >59 Not Available [facility] ([facility]) [address] [place], [address], 03/12/2024 04:36:41 03/11/20 24 03/12/2024 COMP. METAB OLIC PANEL (14) BUN/creatini ne ratio 17 10-24 Not Available [facility] ([facility]) [address] [place], [address], 03/12/2024 04:36:41 03/11/20 24 03/12/2024 COMP. METAB OLIC PANEL (14) sodium 138 mmol/ L 134-14 4 Not Available [facility] ([facility]) [address] [place], [address], 03/12/2024 04:36:41 03/11/20 24 03/12/2024 COMP. METAB OLIC PANEL (14) potassium 4.3 mmol/ L 3.5-5. 2 Not Available [facility] ([facility]) [address] [place], [address], 03/12/2024 04:36:41 03/11/20 24 03/12/2024 COMP. METAB OLIC PANEL (14) chloride 98 mmol/ L 96-106 Not Available [facility] ([facility]) [address] [place], [address], 03/12/2024 04:36:41 03/11/20 24 03/12/2024 COMP. METAB OLIC PANEL (14) carbon dioxide, total 22 mmol/ L 20-29 Not Available [facility] ([facility]) [address] [place], [address], 03/12/2024 04:36:41 03/11/20 24 03/12/2024 COMP. METAB OLIC PANEL (14) calcium 9.9 mg/dL 8.6-10 .2 Not Available [facility] ([facility]) [address] [facility], [place], [address], 03/12/2024 04:36:41 03/11/20 24 03/12/2024 COMP. METAB OLIC PANEL (14) protein, total 7.7 g/dL 6.0-8. 5 Not Available [facility] ([facility]) [address] [facility] [place], [address], 03/12/2024 04:36:41 03/11/20 24 03/12/2024 COMP. METAB OLIC PANEL (14) albumin 4.8 g/dL 3.8-4. 9 Not Available [facility] ([facility]) [address] [facility], [place], [address], 03/12/2024 04:36:41 03/11/2003/12/2024 COMP. METAB OLIC PANEL (14) globulin, total 2.9 g/dL 1.5-4. 5 Not Available [facility] ([facility]) [address] [facility], [place], [address], 03/12/2024 04:36:41 03/11/20 24 03/12/2024 COMP. METAB OLIC PANEL (14) bilirubin, total 0.6 mg/dL 0.0-1. 2 Not Available [facility] ([facility]) [address] [facility] [place], [address], 03/12/2024 04:36:41 03/11/20 24 03/12/2024 COMP. METAB OLIC PANEL (14) alkaline phosphatase 94 IU/L 44-121 Not Available [facility] ([facility]) [address] [facility], [place], [address], 03/12/2024 04:36:41 03/11/20 24 03/12/2024 COMP. METAB OLIC PANEL (14) AST (SGOT) 19 IU/L 0-40 Not Available [facility] ([facility]) [address] [facility], [place], [address], 03/12/2024 04:36:41 03/11/20 24 03/12/2024 COMP. METAB OLIC PANEL (14) ALT (SGPT) 20 IU/L 0-44 Not Available [facility] ([facility]) [address] [facility], [place], [address], 03/12/2024 04:36:41 03/11/20 24 03/12/2024 HEMOG LOBIN A1C hemoglobin A1C 5.9 % 4.8-5. 6 above high normal Predi abete s: 5.7 - 6.4 Diabe stew: >6.4 Glyce cedric contr ol for adult s with diabe stew: <7.0 Not Available [facility] ([facility]) [address] [facility], [place], [address], 03/12/2024 04:36:41 03/11/20 24 03/11/2024 CBC WITH DIFFE RENTI AL/PL ATELE T WBC 6.3 x10e3 /uL 3.4-10 .8 Not Available [facility] ([facility]) [address] [facility], [place], [address], 03/12/2024 04:36:42 03/11/20 24 03/11/2024 CBC WITH DIFFE RENTI AL/PL ATELE T RBC 5.47 x10e6 /uL 4.14-5 .80 Not Available [facility] ([facility]) [address] [facility], [place], [address], 03/12/2024 04:36:42 03/11/20 24 03/11/2024 CBC WITH DIFFE RENTI AL/PL ATELE T hemoglobin 15.9 g/dL 13.0-1 7.7 Not Available [facility] ([facility]) [address] [facility], [place], [address], 03/12/2024 04:36:42 03/11/20 24 03/11/2024 CBC WITH DIFFE RENTI AL/PL ATELE T hematocrit 50.4 % 37.5-5 1.0 Not Available [facility] ([facility]) [address] [facility], [place], [address], 03/12/2024 04:36:42 03/11/20 24 03/11/2024 CBC WITH DIFFE RENTI AL/PL ATELE T MCV 92 fL 79-97 Not Available [facility] ([facility]) [address] [facility], [place], [address], 03/12/2024 04:36:42 03/11/20 24 03/11/2024 CBC WITH DIFFE RENTI AL/PL ATELE T MCH 29.1 pg 26.6-3 3.0 Not Available [facility] ([facility]) [address] [facility], [place], [address], 03/12/2024 04:36:42 03/11/20 24 03/11/2024 CBC WITH DIFFE RENTI AL/PL ATELE T MCHC 31.5 g/dL 31.5-3 5.7 Not Available [facility] ([facility]) [address] [facility], [place], [address], 03/12/2024 04:36:42 03/11/20 24 03/11/2024 CBC WITH DIFFE RENTI AL/PL ATELE T RDW 12.5 % 11.6-1 5.4 Not Available [facility] ([facility]) [address] [facility], [place], [address], 03/12/2024 04:36:42 03/11/20 24 03/11/2024 CBC WITH DIFFE RENTI AL/PL ATELE T platelets 224 x10e3 /uL 150-45 0 Not Available [facility] ([facility]) [address] [facility], [place], [address], 03/12/2024 04:36:42 03/11/20 24 03/11/2024 CBC WITH DIFFE RENTI AL/PL ATELE T neutrophils 59 % notest ab. Not Available [facility] ([facility]) [address] [facility], [place], [place], [address], 03/12/2024 04:36:42 03/11/20 24 03/11/2024 CBC WITH DIFFE RENTI AL/PL ATELE T lymphs 30 % notest ab. Not Available [facility] ([facility]) [address] [facility], [place], [address], 03/12/2024 04:36:42 03/11/20 24 03/11/2024 CBC WITH DIFFE RENTI AL/PL ATELE T monocytes 9 % notest ab. Not Available [facility] ([facility]) [address] [facility], [place], [address], 03/12/2024 04:36:42 03/11/20 24 03/11/2024 CBC WITH DIFFE RENTI AL/PL ATELE T eos 1 % notest ab. Not Available [facility] ([facility]) [address] [facility], [place], [address], 03/12/2024 04:36:42 03/11/20 24 03/11/2024 CBC WITH DIFFE RENTI AL/PL ATELE T basos 1 % notest ab. Not Available [facility] ([facility]) [address] [facility], [place], [address], 03/12/2024 04:36:42 03/11/20 24 03/11/2024 CBC WITH DIFFE RENTI AL/PL ATELE T neutrophils (absolute) 3.7 x10e3 /uL 1.4-7. 0 Not Available [facility] ([facility]) [address] [facility], [place], [address], 03/12/2024 04:36:42 03/11/20 24 03/11/2024 CBC WITH DIFFE RENTI AL/PL ATELE T lymphs (absolute) 1.9 x10e3 /uL 0.7-3. 1 Not Available [facility] ([facility]) [address] [facility], [place], [address], 03/12/2024 04:36:42 03/11/20 24 03/11/2024 CBC WITH DIFFE RENTI AL/PL ATELE T monocytes(ab solute) 0.6 x10e3 /uL 0.1-0. 9 Not Available [facility] ([facility]) [address] [facility], [place], [address], 03/12/2024 04:36:42 03/11/20 24 03/11/2024 CBC WITH DIFFE RENTI AL/PL ATELE T eos (absolute) 0.1 x10e3 /uL 0.0-0. 4 Not Available [facility] ([facility]) [address] [facility], [place], [address], 03/12/2024 04:36:42 03/11/20 24 03/11/2024 CBC WITH DIFFE RENTI AL/PL ATELE T baso (absolute) 0.0 x10e3 /uL 0.0-0. 2 Not Available [facility] ([facility]) [address] [facility], [place], [address], 03/12/2024 04:36:42 03/11/20 24 03/11/2024 CBC WITH DIFFE RENTI AL/PL ATELE T immature granulocytes 0 % notest ab. Not Available [facility] ([facility]) [address] [place], [address], 03/12/2024 04:36:42 03/11/20 24 03/11/2024 CBC WITH DIFFE RENTI AL/PL ATELE T immature grans (abs) 0.0 x10e3 /uL 0.0-0. 1 Not Available [facility] ([facility]) [address] [facility] [place], [address], 03/12/2024 04:36:42 08/18/19 25 08/18/2024 TSH+F REE T4 TSH 4.130 uIU/m L 0.450- 4.500 Not Available [facility] ([facility]) [address] [facility], [place], [address], 08/18/2024 13:08:35 08/18/19 25 08/18/2024 TSH+F REE T4 T4,free(dire ct) 1.37 NG/dL 0.82-1 .77 Not Available [facility] ([facility]) [address] [place], [address], 08/18/2024 13:08:35 08/18/19 25 08/18/2024 LIPID PANEL WITH LDL/H DL RATIO cholesterol, total 140 mg/dL 100-19 9 Not Available [facility] ([facility]) [address] [place], [address], 08/18/2024 13:08:36 08/18/19 25 08/18/2024 LIPID PANEL WITH LDL/H DL RATIO triglyceride s 192 mg/dL 0-149 above high normal Not Available [facility] ([facility]) [address] [place], [address], 08/18/2024 13:08:36 08/18/19 25 08/18/2024 LIPID PANEL WITH LDL/H DL RATIO HDL cholesterol 33 mg/dL >39 below low normal Not Available [facility] ([facility]) [address] [place], [address], 08/18/2024 13:08:36 08/18/19 25 08/18/2024 LIPID PANEL WITH LDL/H DL RATIO VLDL cholesterol leni 32 mg/dL 5-40 Not Available [facility] ([facility]) [address] [place], [address], 08/18/2024 13:08:36 08/18/19 25 08/18/2024 LIPID PANEL WITH LDL/H DL RATIO [facility] 75 mg/dL 0-99 Not Available [facility] ([facility]) [address] [place], [address], 08/18/2024 13:08:36 08/18/19 25 08/18/2024 LIPID PANEL WITH LDL/H DL RATIO LDL/HDL ratio 2.3 ratio 0.0-3. 6 LDL/H DL Ratio Men Women 1/2 Avg.R isk 1.0 1.5 Avg.R isk 3.6 3.2 2X Avg.R isk 6.2 5.0 3X Avg.R isk 8.0 6.1 Not Available [facility] ([facility]) [address] [place], [address], 08/18/2024 13:08:36 08/18/19 25 08/18/2024 COMP. METAB OLIC PANEL (14) glucose 99 mg/dL 70-99 Not Available [facility] ([facility]) [address] [place], [address], 08/18/2024 13:08:37 08/18/19 25 08/18/2024 COMP. METAB OLIC PANEL (14) BUN 18 mg/dL 8-27 Not Available [facility] ([facility]) [address] [place], [address], 08/18/2024 13:08:37 08/18/19 25 08/18/2024 COMP. METAB OLIC PANEL (14) creatinine 0.97 mg/dL 0.76-1 .27 Not Available [facility] ([facility]) [address] [place], [address], 08/18/2024 13:08:37 08/18/19 25 08/18/2024 COMP. METAB OLIC PANEL (14) eGFR 89 mL/mi n/1.7 3 >59 Not Available [facility] ([facility]) [address] [facility], [place], [address], 08/18/2024 13:08:37 08/18/19 25 08/18/2024 COMP. METAB OLIC PANEL (14) BUN/creatini ne ratio 19 10-24 Not Available [facility] ([facility]) [address] [facility], [place], [address], 08/18/2024 13:08:37 08/18/19 25 08/18/2024 COMP. METAB OLIC PANEL (14) sodium 140 mmol/ L 134-14 4 Not Available [facility] ([facility]) [address] [facility], [place], [address], 08/18/2024 13:08:37 08/18/19 25 08/18/2024 COMP. METAB OLIC PANEL (14) potassium 4.4 mmol/ L 3.5-5. 2 Not Available [facility] ([facility]) [address] [facility], [place], [address], 08/18/2024 13:08:37 08/18/19 25 08/18/2024 COMP. METAB OLIC PANEL (14) chloride 99 mmol/ L 96-106 Not Available [facility] ([facility]) [address] [facility], [place], [address], 08/18/2024 13:08:37 08/18/19 25 08/18/2024 COMP. METAB OLIC PANEL (14) carbon dioxide, total 23 mmol/ L 20-29 Not Available [facility] ([facility]) [address] [facility], [place], [address], 08/18/2024 13:08:37 08/18/19 25 08/18/2024 COMP. METAB OLIC PANEL (14) calcium 9.6 mg/dL 8.6-10 .2 Not Available [facility] ([facility]) [address] [facility], [place], [address], 08/18/2024 13:08:37 08/18/19 25 08/18/2024 COMP. METAB OLIC PANEL (14) protein, total 7.6 g/dL 6.0-8. 5 Not Available [facility] ([facility]) [address], [place], [address], 08/18/2024 13:08:37 08/18/19 25 08/18/2024 COMP. METAB OLIC PANEL (14) albumin 4.4 g/dL 3.9-4. 9 Not Available [facility] ([facility]) [address] [facility], [place], [address], 08/18/2024 13:08:37 08/18/19 25 08/18/2024 COMP. METAB OLIC PANEL (14) globulin, total 3.2 g/dL 1.5-4. 5 Not Available [facility] ([facility]) [address] [facility], [place], [address], 08/18/2024 13:08:37 08/18/19 25 08/18/2024 COMP. METAB OLIC PANEL (14) bilirubin, total 0.5 mg/dL 0.0-1. 2 Not Available [facility] ([facility]) [address] [facility], [place], [address], 08/18/2024 13:08:37 08/18/19 25 08/18/2024 COMP. METAB OLIC PANEL (14) alkaline phosphatase 105 IU/L 44-121 Not Available [facility] ([facility]) [address] [facility], [place], [address], 08/18/2024 13:08:37 08/18/19 25 08/18/2024 COMP. METAB OLIC PANEL (14) AST (SGOT) 19 IU/L 0-40 Not Available [facility] ([facility]) [address] [facility], [place], [address], 08/18/2024 13:08:37 03/10/20 25 08/18/2024 COMP. METAB OLIC PANEL (14) ALT (SGPT) 17 IU/L 0-44 Not Available [facility] ([facility]) [address] [facility], [place], [address], 08/18/2024 13:08:37 08/18/19 25 08/18/2024 HEMOG LOBIN A1C hemoglobin A1C 6.1 % 4.8-5. 6 above high normal Predi abete s: 5.7 - 6.4 Diabe stew: >6.4 Glyce cedric contr ol for adult s with diabe stew: <7.0 Not Available [facility] ([facility]) [address] [facility], [place], [address], 08/18/2024 13:08:38 08/18/19 25 08/18/2024 CBC WITH DIFFE RENTI AL/PL ATELE T WBC 7.3 x10e3 /uL 3.4-10 .8 Not Available [facility] ([facility]) [address] [facility], [place], [address], 08/18/2024 13:08:39 08/18/19 25 08/18/2024 CBC WITH DIFFE RENTI AL/PL ATELE T RBC 5.19 x10e6 /uL 4.14-5 .80 Not Available [facility] ([facility]) [address] [facility], [place], [address], 08/18/2024 13:08:39 08/18/19 25 08/18/2024 CBC WITH DIFFE RENTI AL/PL ATELE T hemoglobin 15.7 g/dL 13.0-1 7.7 Not Available [facility] ([facility]) [address] [place], [address], 08/18/2024 13:08:39 08/18/19 25 08/18/2024 CBC WITH DIFFE RENTI AL/PL ATELE T hematocrit 47.4 % 37.5-5 1.0 Not Available [facility] ([facility]) [address] [facility], [place], [address], 08/18/2024 13:08:39 08/18/19 25 08/18/2024 CBC WITH DIFFE RENTI AL/PL ATELE T MCV 91 fL 79-97 Not Available [facility] ([facility]) [address] [facility], [place], [address], 08/18/2024 13:08:39 08/18/19 25 08/18/2024 CBC WITH DIFFE RENTI AL/PL ATELE T MCH 30.3 pg 26.6-3 3.0 Not Available [facility] ([facility]) [address] [facility], [place], [address], 08/18/2024 13:08:39 08/18/19 25 08/18/2024 CBC WITH DIFFE RENTI AL/PL ATELE T MCHC 33.1 g/dL 31.5-3 5.7 Not Available [facility] ([facility]) [address] [facility], [place], [address], 08/18/2024 13:08:39 08/18/19 25 08/18/2024 CBC WITH DIFFE RENTI AL/PL ATELE T RDW 12.8 % 11.6-1 5.4 Not Available [facility] ([facility]) [address] [place], [address], 08/18/2024 13:08:39 08/18/19 25 08/18/2024 CBC WITH DIFFE RENTI AL/PL ATELE T platelets 260 x10e3 /uL 150-45 0 Not Available [facility] ([facility]) [address] [place], [address], 08/18/2024 13:08:39 08/18/19 25 08/18/2024 CBC WITH DIFFE RENTI AL/PL ATELE T neutrophils 58 % notest ab. Not Available [facility] ([facility]) [address] [place], [address], 08/18/2024 13:08:39 08/18/19 25 08/18/2024 CBC WITH DIFFE RENTI AL/PL ATELE T lymphs 30 % notest ab. Not Available [facility] ([facility]) [address] [facility], [place], [address], 08/18/2024 13:08:39 08/18/19 25 08/18/2024 CBC WITH DIFFE RENTI AL/PL ATELE T monocytes 9 % notest ab. Not Available [facility] ([facility]) [address] [facility], [place], [address], 08/18/2024 13:08:39 08/18/19 25 08/18/2024 CBC WITH DIFFE RENTI AL/PL ATELE T eos 2 % notest ab. Not Available [facility] ([facility]) [address] [facility], [place], [address], 08/18/2024 13:08:39 08/18/19 25 08/18/2024 CBC WITH DIFFE RENTI AL/PL ATELE T basos 1 % notest ab. Not Available [facility] ([facility]) [address] [place], [address], 08/18/2024 13:08:39 08/18/19 25 08/18/2024 CBC WITH DIFFE RENTI AL/PL ATELE T neutrophils (absolute) 4.2 x10e3 /uL 1.4-7. 0 Not Available [facility] ([facility]) [address] [facility], [place], [address], 08/18/2024 13:08:39 08/18/19 25 08/18/2024 CBC WITH DIFFE RENTI AL/PL ATELE T lymphs (absolute) 2.2 x10e3 /uL 0.7-3. 1 Not Available [facility] ([facility]) [address] [place], [address], 08/18/2024 13:08:39 08/18/19 25 08/18/2024 CBC WITH DIFFE RENTI AL/PL ATELE T monocytes(ab solute) 0.7 x10e3 /uL 0.1-0. 9 Not Available [facility] ([facility]) [address] [facility], [place], [address], 08/18/2024 13:08:39 08/18/19 25 08/18/2024 CBC WITH DIFFE RENTI AL/PL ATELE T eos (absolute) 0.1 x10e3 /uL 0.0-0. 4 Not Available [facility] ([facility]) [address] [place], [address], 08/18/2024 13:08:39 08/18/19 25 08/18/2024 CBC WITH DIFFE RENTI AL/PL ATELE T baso (absolute) 0.1 x10e3 /uL 0.0-0. 2 Not Available [facility] ([facility]) [address] [place], [address], 08/18/2024 13:08:39 08/18/19 25 08/18/2024 CBC WITH DIFFE RENTI AL/PL ATELE T immature granulocytes 0 % notest ab. Not Available [facility] ([facility]) [address] [place], [address], 08/18/2024 13:08:39 08/18/19 25 08/18/2024 CBC WITH DIFFE RENTI AL/PL ATELE T immature grans (abs) 0.0 x10e3 /uL 0.0-0. 1 Not Available [facility] ([facility]) [address] [place], [address], 08/18/2024 13:08:39 08/18/19 25 08/18/2024 PROST ATE-S PECIF IC AG prostate specific Ag 0.6 NG/mL 0.0-4. 0 Juliocesar ECLIA metho dolog y. Accor ding to the [employer]i can [employer] iatio n, Serum PSA shoul d decre ase and remai n at undet ectab le level s after radic al prost atect cricket. The AUA defin es bioch emica l recur rence as an initi al PSA value 0.2 ng/mL or great er follo wed by a subse quent confi rmato ry PSA value 0.2 ng/mL or great er. Value s obtai pallavi with diffe rent assay metho ds or kits canno t be used inter salvador eably . Resul ts canno t be inter prete d as absol [place] evide nce of the prese nce or absen ce of nikunj robles se. Not Available [facility] ([facility]) [address] [facility], [place], [address], 08/18/2024 13:08:40 04/09/20 25 04/10/2025 ALBUM IN/CR EATIN INE RATIO ,URIN E creatinine, urine 52.5 mg/dL notest ab. Not Available [facility] ([facility]) [address] [place], [address], 04/10/2025 11:08:08 04/09/20 25 04/10/2025 ALBUM IN/CR EATIN INE RATIO ,URIN E albumin, urine <3.0 ug/mL notest ab. Not Available [facility] ([facility]) [address] [place], [address], 04/10/2025 11:08:08 04/09/20 25 04/10/2025 ALBUM IN/CR EATIN INE RATIO ,URIN E alb/creat ratio <6 Amy l: 0 - 29 Moder ately incre ased: 30 - 300 Sever valeriy incre ased: >300 Not Available [facility] ([facility]) [address] [place], [address], 04/10/2025 11:08:08 04/09/20 25 04/10/2025 LIPID PANEL W/ CHOL/ HDL RATIO cholesterol, total 163 mg/dL 100-19 9 Not Available [facility] ([facility]) [address] [place], [address], 04/10/2025 11:08:08 04/09/20 25 04/10/2025 LIPID PANEL W/ CHOL/ HDL RATIO triglyceride s 263 mg/dL 0-149 above high normal Not Available [facility] ([facility]) [address] [place], [address], 04/10/2025 11:08:08 04/09/20 25 04/10/2025 LIPID PANEL W/ CHOL/ HDL RATIO HDL cholesterol 31 mg/dL >39 below low normal Not Available [facility] ([facility]) [address] [place], [address], 04/10/2025 11:08:08 04/09/20 25 04/10/2025 LIPID PANEL W/ CHOL/ HDL RATIO VLDL cholesterol leni 44 mg/dL 5-40 above high normal Not Available [facility] ([facility]) [address] [place], [address], 04/10/2025 11:08:08 04/09/20 25 04/10/2025 LIPID PANEL W/ CHOL/ HDL RATIO LDL [facility] 88 mg/dL 0-99 Not Available [facility] ([facility]) [address] [place], [address], 04/10/2025 11:08:08 04/09/20 25 04/10/2025 LIPID PANEL W/ CHOL/ HDL RATIO T. chol/HDL ratio 5.3 ratio 0.0-5. 0 above high normal T. Chol/ HDL Ratio Men Women 1/2 Avg.R isk 3.4 3.3 Avg.R isk 5.0 4.4 2X Avg.R isk 9.6 7.1 3X Avg.R isk 23.4 11.0 Not Available [facility] ([facility]) [address] [place], [address], 04/10/2025 11:08:08 04/09/20 25 04/10/2025 TSH+F REE T4 TSH 5.960 uIU/m L 0.450- 4.500 above high normal Not Available [facility] ([facility]) [address] [facility], [place], [address], 04/10/2025 11:08:09 04/09/2004/10/2025 TSH+F REE T4 T4,free(dire ct) 1.41 NG/dL 0.82-1 .77 Not Available [facility] ([facility]) [address] [place], [address], 04/10/2025 11:08:09 04/09/20 25 04/10/2025 CMP14 +EGFR glucose 89 mg/dL 70-99 Not Available [facility] ([facility]) [address] [place], [address], 04/10/2025 11:08:10 04/09/20 25 04/10/2025 CMP14 +EGFR BUN 19 mg/dL 8-27 Not Available [facility] ([facility]) [address] [place], [address], 04/10/2025 11:08:10 04/09/20 25 04/10/2025 CMP14 +EGFR creatinine 0.98 mg/dL 0.76-1 .27 Not Available [facility] ([facility]) [address] [place], [address], 04/10/2025 11:08:10 04/09/20 25 04/10/2025 CMP14 +EGFR eGFR 88 mL/mi n/1.7 3 >59 Not Available [facility] ([facility]) [address] [place], [address], 04/10/2025 11:08:10 04/09/20 25 04/10/2025 CMP14 +EGFR BUN/creatini ne ratio 19 10-24 Not Available [facility] ([facility]) [address] [facility], [place], [address], 04/10/2025 11:08:10 04/09/2004/10/2025 CMP14 +EGFR sodium 138 mmol/ L 134-14 4 Not Available [facility] ([facility]) [address] [facility] [place], [address], 04/10/2025 11:08:10 04/09/2004/10/2025 CMP14 +EGFR potassium 4.5 mmol/ L 3.5-5. 2 Not Available [facility] ([facility]) [address] [facility], [place], [address], 04/10/2025 11:08:10 04/09/2004/10/2025 CMP14 +EGFR chloride 100 mmol/ L 96-106 Not Available [facility] ([facility]) [address] [facility], [place], [address], 04/10/2025 11:08:10 04/09/2004/10/2025 CMP14 +EGFR carbon dioxide, total 22 mmol/ L 20-29 Not Available [facility] ([facility]) [address] [facility], [place], [address], 04/10/2025 11:08:10 04/09/2004/10/2025 CMP14 +EGFR calcium 9.7 mg/dL 8.6-10 .2 Not Available [facility] ([facility]) [address] [facility] [place], [address], 04/10/2025 11:08:10 04/09/2004/10/2025 CMP14 +EGFR protein, total 7.6 g/dL 6.0-8. 5 Not Available [facility] ([facility]) [address] [place], [address], 04/10/2025 11:08:10 04/09/2004/10/2025 CMP14 +EGFR albumin 4.4 g/dL 3.9-4. 9 Not Available [facility] ([facility]) [address] [place], [address], 04/10/2025 11:08:10 04/09/2004/10/2025 CMP14 +EGFR globulin, total 3.2 g/dL 1.5-4. 5 Not Available [facility] ([facility]) [address] [place], [address], 04/10/2025 11:08:10 04/09/2004/10/2025 CMP14 +EGFR bilirubin, total 0.5 mg/dL 0.0-1. 2 Not Available [facility] ([facility]) [address] [facility], [place], [address], 04/10/2025 11:08:10 04/09/2004/10/2025 CMP14 +EGFR alkaline phosphatase 93 IU/L 47-123 Not Available [facility] ([facility]) [address] [place], [address], 04/10/2025 11:08:10 04/09/2004/10/2025 CMP14 +EGFR AST (SGOT) 38 IU/L 0-40 Not Available [facility] ([facility]) [address] [place], [address], 04/10/2025 11:08:10 04/09/2004/10/2025 CMP14 +EGFR ALT (SGPT) 43 IU/L 0-44 Not Available [facility] ([facility]) [address] [place], [address], 04/10/2025 11:08:10 04/09/2004/10/2025 HEMOG LOBIN A1C hemoglobin A1C 6.5 % 4.8-5. 6 above high normal Predi abete s: 5.7 - 6.4 Diabe stew: >6.4 Glyce cedric contr ol for adult s with diabe stew: <7.0 Not Available [facility] ([facility]) [address] [facility], [place], [address], 04/10/2025 11:08:10 04/09/20 25 04/10/2025 CBC WITH DIFFE RENTI AL/PL ATELE T WBC 7.1 x10e3 /uL 3.4-10 .8 Not Available [facility] ([facility]) [address] [facility], [place], [address], 04/10/2025 11:08:11 04/09/20 25 04/10/2025 CBC WITH DIFFE RENTI AL/PL ATELE T RBC 4.95 x10e6 /uL 4.14-5 .80 Not Available [facility] ([facility]) [address] [facility], [place], [address], 04/10/2025 11:08:11 04/09/20 25 04/10/2025 CBC WITH DIFFE RENTI AL/PL ATELE T hemoglobin 15.1 g/dL 13.0-1 7.7 Not Available [facility] ([facility]) [address] [facility], [place], [address], 04/10/2025 11:08:11 04/09/20 25 04/10/2025 CBC WITH DIFFE RENTI AL/PL ATELE T hematocrit 45.8 % 37.5-5 1.0 Not Available [facility] ([facility]) [address] [place], [address], 04/10/2025 11:08:11 04/09/20 25 04/10/2025 CBC WITH DIFFE RENTI AL/PL ATELE T MCV 93 fL 79-97 Not Available [facility] ([facility]) [address] [facility], [place], [address], 04/10/2025 11:08:11 04/09/20 25 04/10/2025 CBC WITH DIFFE RENTI AL/PL ATELE T MCH 30.5 pg 26.6-3 3.0 Not Available [facility] ([facility]) [address] [facility], [place], [address], 04/10/2025 11:08:11 04/09/20 25 04/10/2025 CBC WITH DIFFE RENTI AL/PL ATELE T MCHC 33.0 g/dL 31.5-3 5.7 Not Available [facility] ([facility]) [address] [facility], [place], [address], 04/10/2025 11:08:11 04/09/20 25 04/10/2025 CBC WITH DIFFE RENTI AL/PL ATELE T RDW 13.0 % 11.6-1 5.4 Not Available [facility] ([facility]) [address] [facility], [place], [address], 04/10/2025 11:08:11 04/09/20 25 04/10/2025 CBC WITH DIFFE RENTI AL/PL ATELE T platelets 218 x10e3 /uL 150-45 0 Not Available [facility] ([facility]) [address] [facility], [place], [address], 04/10/2025 11:08:11 04/09/20 25 04/10/2025 CBC WITH DIFFE RENTI AL/PL ATELE T neutrophils 57 % notest ab. Not Available [facility] ([facility]) [address] [facility], [place], [address], 04/10/2025 11:08:11 04/09/20 25 04/10/2025 CBC WITH DIFFE RENTI AL/PL ATELE T lymphs 30 % notest ab. Not Available [facility] ([facility]) [address] [facility], [place], [address], 04/10/2025 11:08:11 04/09/20 25 04/10/2025 CBC WITH DIFFE RENTI AL/PL ATELE T monocytes 10 % notest ab. Not Available [facility] ([facility]) [address] [facility], [place], [address], 04/10/2025 11:08:11 04/09/20 25 04/10/2025 CBC WITH DIFFE RENTI AL/PL ATELE T eos 2 % notest ab. Not Available [facility] ([facility]) [address] [facility], [place], [address], 04/10/2025 11:08:11 04/09/20 25 04/10/2025 CBC WITH DIFFE RENTI AL/PL ATELE T basos 1 % notest ab. Not Available [facility] ([facility]) [address] [facility], [place], [address], 04/10/2025 11:08:11 04/09/20 25 04/10/2025 CBC WITH DIFFE RENTI AL/PL ATELE T neutrophils (absolute) 4.0 x10e3 /uL 1.4-7. 0 Not Available [facility] ([facility]) [address] [facility], [place], [address], 04/10/2025 11:08:11 04/09/20 25 04/10/2025 CBC WITH DIFFE RENTI AL/PL ATELE T lymphs (absolute) 2.2 x10e3 /uL 0.7-3. 1 Not Available [facility] ([facility]) [address] [facility], [place], [address], 04/10/2025 11:08:11 04/09/20 25 04/10/2025 CBC WITH DIFFE RENTI AL/PL ATELE T monocytes(ab solute) 0.7 x10e3 /uL 0.1-0. 9 Not Available [facility] ([facility]) [address] [facility], [place], [address], 04/10/2025 11:08:11 04/09/20 25 04/10/2025 CBC WITH DIFFE RENTI AL/PL ATELE T eos (absolute) 0.1 x10e3 /uL 0.0-0. 4 Not Available [facility] ([facility]) [address] [facility], [place], [address], 04/10/2025 11:08:11 04/09/20 25 04/10/2025 CBC WITH DIFFE RENTI AL/PL ATELE T baso (absolute) 0.1 x10e3 /uL 0.0-0. 2 Not Available [facility] ([facility]) [address] [facility], [place], [address], 04/10/2025 11:08:11 04/09/20 25 04/10/2025 CBC WITH DIFFE RENTI AL/PL ATELE T immature granulocytes 0 % notest ab. Not Available [facility] ([facility]) [address] [facility], [place], [address], 04/10/2025 11:08:11 04/09/20 25 04/10/2025 CBC WITH DIFFE RENTI AL/PL ATELE T immature grans (abs) 0.0 x10e3 /uL 0.0-0. 1 Not Available [facility] ([facility]) 0 [facility], [place], [address], 04/10/2025 11:08:11 12/28/19 24 12/27/2023 XR, wrist No observ ation record ed. [facility] [address] [place] [address], [address], 01/01/2024 11:00:38 12/29/19 24 12/28/2023 MRI, wrist , w/o contr ast No observ ation record ed. [address], [address], 01/01/2024 11:00:36 Result Notes None recorded. Problems Name Problem SNOMED Code Status Onset Date Resolution Date Notes Provider Name and Address Organization Details Recorded Time Bilateral lower leg edema 840473968 Active 2023 NIKOLAS Mccallum Attn: Accountin g,[address] [facility], [place], [address], [place] [facility] 4 16:51:57 Benign essential hypertensio n 7200421 Active 2023 NIKOLAS Mccallum Attn: Accountin g,[address] [facility], [place], [address], [place] [facility] 4 16:51:58 Hypothyroid ism 95905444 Active 2023 NIKOLAS Mccallum Attn: Accountin g,[address] [facility], [place], [address], [place] [facility] 4 16:52:00 Prediabetes 897499982 Active 2023 NIKOLAS Mccallum Attn: Accountin g,[address] [facility], [place], [address], [place] [facility] 4 16:52:06 Long-term drug therapy Active 2023 NIKOLAS Mccallum Attn: Accountin g,[address] [facility], [place], [address], [place] [facility] 4 16:52:08 Obesity 691519457 Active 2023 NIKOLAS Mccallum Attn: Accountin g,[address] 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 Procedures Surgical History Date Name Laterality Status Provider Name and Address Organization Details Recorded Time Hernia Repair completed Sigrid Shannon MA [place] [facility] 09/30/2023 16:20:40 Imaging Results None recorded. Procedure Notes None recorded. Medical Equipment None Reported. Allergies Allergen ID Allergen Name Allergen Category Reaction Reaction Severity Criticality Documentation Date Start Date Code Code System Note Provider Name and Address Organization Details Recorded Time 399029 Product containin g penicilli n (product) medicatio n Not available Not available Not available 09/30/2023 63731 8001 SNOMED Sigrid Shannon MA null, [place] [facility] 4 16:16:53 Medications Name Sig Start Date Stop Date Status Note LastModified by Organization Details LastModified Time furosemid e 40 mg tablet TAKE 1 TABLET BY MOUTH EVERY DAY IN THE MORNING WITH POTASSIU M active Not Available Not Available No t Available metolazon e 2.5 mg tablet TAKE 1 TABLET BY MOUTH SATURDAY, SATURDAY AND SATURDAY . CONTINUE FUROSEMI DE AND POTASSIU M active Not Available Not Available No t Available prednison e 10 mg tablet TAPER DIRECTED ORALLY DAILY FOR 12 DAYS 09/19 completed Not Available Not Available Not Available doxycycli ne hyclate 100 mg capsule TAKE 1 CAPSULE BY MOUTH TWICE A DAY WITH MEALS 09/19 completed Not Available Not Available Not Available hydrocodo ne 5 mg-acetam inophen 325 mg tablet 1 TABLET ORALLY EVERY 6 HOURS NEEDED FOR SEVERE PAIN (SCALE SCORE 7-10) 09/19 completed Not Available Not Available Not Available potassium chloride ER 10 mEq tablet,ex tended release TAKE 1 TABLET BY MOUTH EVERY DAY WITH FUROSEMI DE 10/30/ 2025 active Not Available Not Available Not Avai lable levothyro xine 88 mcg tablet Take 1 tablet every day by oral route for 90 days. active Not Available Not Available No t Available cephalexi n 500 mg capsule TAKE 1 CAPSULE BY MOUTH EVERY 6 HOURS 09/19 completed Not Available Not Available Not Available hydrochlo rothiazid e 25 mg tablet TAKE 1 TABLET BY MOUTH EVERY DAY 09/29 completed Not Available Not Available Not Available mupirocin 2 % topical ointment APPLY TOPICALL Y DAILY NEEDED TO AFFECTED AREA active Not Available Not Available No t Available furosemid e 20 mg tablet TAKE 1 TABLET BY MOUTH EVERY DAY ALONG WITH RAFFI SHULTZ HCTZ 09/19 completed Not Available Not Available Not Available ibuprofen 600 mg tablet Take 1 tablet 3 times a day by oral route for 20 days. 04/08 completed prn Not Available Not Available Not Available levofloxa olya 500 mg tablet TAKE 1 TABLET BY MOUTH EVERY 24 HOURS 09/19 completed Not Available Not Available Not Available cefdinir 300 mg capsule TAKE 1 CAPSULE BY MOUTH EVERY 12 HOURS 09/19 completed Not Available Not Available Not Available metformin ER 500 mg tablet,ex tended release 24 hr Take every day by oral route for 90 days. 03/20 completed pt has gotten a reaction from this/con stipatio n Not Available Not Available Not Available olmesarta n 40 mg tablet TAKE 1 TABLET BY MOUTH EVERY DAY active Not Available Not Available No t Available nebivolol 5 mg tablet TAKE 1 TABLET BY MOUTH EVERY DAY 2024 active Not Available Not Available Not Avai lable Vitals Date Recorded Respiratory rate Systolic And Diastolic Provider Name and Address Organization Details Last Updated DateTime 09/14/2024 16 /min 138/80 mm[Hg] NIOKLAS Mccallum Attn: Accounting,[address] [facility], [place], [address], [place] 10/04/2024 22:23:08 Date Recorded Body height Body mass index (BMI) Body weight Oxygen saturation Oxygen saturation in Arterial blood by Pulse oximetry Heart rate Systolic And Diastolic Provider Name and Address Organization Details Last Updated DateTime 186.69 cm 36.7 kg/m2 865420. 05 g 98 % 98 % 64 /min 142/80 mm[Hg] Eloina Conteh MA [place] - [facility] 5 12:49:12 Date Recorded Systolic And Diastolic Systolic And Diastolic Provider Name and Address Organization Details Last Updated DateTime 09/30/2023 140/90 mm[Hg] 150/90 mm[Hg] NIKOLAS Mccallum Attn: Accounting,[address] [place], [address], [facility] 09/30/2023 16:58:28 Date Recorded Body height Body mass index (BMI) Body weight Heart rate Oxygen saturation Oxygen saturation in Arterial blood by Pulse oximetry Systolic And Diastolic Provider Name and Address Organization Details Last Updated DateTime 4 186.69 cm 39.4 kg/m2 046556. 33 g 63 /min 98 % 98 % 136/82 mm[Hg] Sigrid Shannon MA [place] - [facility] 16:23:26 Date Recorded Systolic And Diastolic Systolic And Diastolic Provider Name and Address Organization Details Last Updated DateTime 01/01/2024 140/80 mm[Hg] 130/80 mm[Hg] NIKOLAS Mccallum Attn: Accounting,[address] [place], [address], [facility] 01/01/2024 11:13:10 Date Recorded Body height Respiratory rate Body mass index (BMI) Body weight Oxygen saturation Oxygen saturation in Arterial blood by Pulse oximetry Heart rate Systolic And Diastolic Provider Name and Address Organization Details Last Updated DateTime 4 186.69 cm 20 /min 36.8 kg/m2 233767. 07 g 99 % 99 % 60 /min 142/88 mm[Hg] Eloina Conteh MA [facility] 10:57:09 Date Recorded Systolic And Diastolic Provider Name and Address Organization Details Last Updated DateTime 03/20/2024 140/90 mm[Hg] NIKOLAS Mccallum Attn: Accounting,[address] [place], [address], [facility] 03/20/2024 12:22:37 Date Recorded Body height Body mass index (BMI) Body weight Respiratory rate Oxygen saturation Oxygen saturation in Arterial blood by Pulse oximetry Heart rate Systolic And Diastolic Provider Name and Address Organization Details Last Updated DateTime 4 186.69 cm 36.3 kg/m2 464129. 7 g 20 /min 98 % 98 % 88 /min 132/82 mm[Hg] Eloina Conteh MA [facility] 4 11:58:26 Date Recorded Respiratory rate Systolic And Diastolic Provider Name and Address Organization Details Last Updated DateTime 04/08/2025 16 /min 146/80 mm[Hg] NIKOLAS Mccallum Attn: Accounting,[address] [facility], [place], [address], [facility] 04/08/2025 09:30:12 Date Recorded Body mass index (BMI) Body weight Oxygen saturation Oxygen saturation in Arterial blood by Pulse oximetry Heart rate Systolic And Diastolic Provider Name and Address Organization Details Last Updated DateTime 5 38.7 kg/m2 147419. 93 g 100 % 100 % 71 /min 148/82 mm[Hg] Eloina Conteh MA [facility] 5 09:06:58 Date Recorded Body height Provider Name an d Address Organization Details Last Updated DateTime 04/08/2025 186.69 cm Makenzie Brooks [facility] 04/08/20 25 08:45:27 Social History Question Answer Notes LastModified by Organizat ion Details LastModified Time Tobacco Smoking Status Never Smoker Sigrid Shannon MA null, [facility] 09/30/2023 16:18:41 Do You Have An Advance Directive? No Information not available 09/30/2023 Are You Blind Or Do You Have Difficulty Seeing? Yes Glasses Information not available 09/30/2023 What Is Your Level Of Caffeine Consumption? Occasional Tea Information not available 09/30/2023 In The 14 Days Before Symptom Onset, Have You Had Close Contact With A Laboratory-confir med COVID-19 While That Case Was Ill? No Information not available 09/30/2023 In The 14 Days Before Symptom Onset, Have You Had Close Contact With A Person Who Is Under Investigation For COVID-19 While That Person Was Ill? No Information not available 09/30/2023 Have You Been To An Area Known To Be High Risk For COVID-19? No Information not available 09/30/2023 Are You Deaf Or Do You Have Serious Difficulty Hearing? No Information not available 09/30/2023 What Type Of Diet Are You Following? REGULAR Information not available 09/30/2023 What Is The Highest Grade Or Level Of School You Have Completed Or The Highest Degree You Have Received? [id number] Information not available 09/30/2023 Are There Any Guns Present In Your Home? Yes Information not available 09/30/2023 What Was The Date Of Your Most Recent Tobacco Screening? 04/08/2025 [email or web address] Information not available 04/08/2025 What Is Your Relationship Status? Information not available 09/30/2023 Do You Use Your Seat Belt Or Car Seat Routinely? Yes Information not available 09/30/2023 Do You Have Smoke And Carbon Monoxide Detectors In Your Home? Yes Information not available 09/30/2023 Do You Use Sunscreen Routinely? No Information not available 09/30/2023 Has Tobacco Cessation Counseling Been Provided? No Information not available 09/30/2023 Sex: Male Functional Status Question Answer Note LastModified by Organizat ion Details LastModified Time Do you use any illicit or recreational drugs? No Information not available 09/30/2023 Do you or have you ever used any other forms of tobacco or nicotine? No Information not available 09/30/2023 What is your level of alcohol consumption? None Information not available 09/30/2023 Are you currently employed? Yes Information not available 09/30/2023 Are you able to care for yourself independently? 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 Occasional Information not available 09/30/2023 Mental Status Question Answer Note LastModified by Organization D etails LastModified Time Do you feel stressed (tense, restless, nervous, or anxious, or unable to sleep at night)? [id number] Information not available 09/30/2023 Family History Relationship Description Onset Age of this Age Resolved Age Notes LastModified by Organization Details LastModified Time Father Dementia [email or web address] Not available 0 09/30/2023 16:18:05 Father Diabetes mellitus mebyma Not available 2023 16:18:10 Father Hypertensive disorder mebyma Not available 2023 16:18:17 Medical History Condition Response Coronary Artery Disease N Other N Atrial Fibrillation N High Blood Pressure N Thyroid Problems N Kidney or Bladder Problems N Depression N COPD N Blood Clots N GI Problems N Have you had a mammogram in the last yea r? N Skin Problems N Anemia N Heart Attack (ND) N Diabetes N Anxiety Disorder N Muscle, Joint, or Bone Problems N Seizures/Epilepsy N Have you had a colonoscopy in the last 1 0 years? N Acid Reflux (GERD) N Cancer N Stroke N Allergies N Asthma N Have you had a PSA blood test in the las t year? N High Cholesterol N Hepatitis N Liver Disease N Headaches N Osteoporosis N Heart Failure N Past Encounters Encounter ID Performer Location Encounter Start Date Encounter Closed Date Diagnosis/Indication Diagnosis SNOMED-CT Code Diagnosis ICD10 Code Diagnosis IMO Codes Diagnosis Note [id number] Trevin Earl MD [facility] [place] [address] [facility] [place] [address] 09/30/2023 15:49:44 09/30/2023 17:15:55 Bilateral lower leg edema 861016186 R60.0 Restart Lasix 40mg daily and KCL 10meq daily. Benign ess ential hypertension 0953145 I10 elevated today 150/90: as he has been off diuretic for a few months, ran out of refills. refill lasix and potassium as above, diurese some of this fluid off and BP should respond appropriat valeriy. Hypothyroidism 62427009 E03.9 stable on levothyrox ine 88mcg daily. due for updated labs to assure dosing change is not needed. Long-term drug therapy 576778354 Z79.899 routine cbc and cmp due Prediabetes 211654806 R7 3.03 due for updated a1c lab Cholesterol screening 27 5682884 Z13.220 fasting lipids due Body mass index 30+ - obesity 910708931 Z68.39 Obesity 528609469 E66.9 discussed healthy diet, exercise, controllin g carbohydra stew and added sugars in the diet [id number] Trevin Earl MD [facility] [employer] [address] [place] [address] 01/01/2024 10:16:09 01/01/2024 11:51:38 Body mass index 30+ - obesity 356490178 Z68.36 BMI is 36.8 Obesity 687332981 E66.8 discussed healthy diet, exercise, controllin g carbohydra stew and added sugars in the diet 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 Type 2 alban betes mellitus without complication 659538489 E11.9 Continue metformin ER 500 mg daily and repeat A1c and microalbum in of the urine in February. Patient has had excellent results cutting carbohydra stew and sugars from his diet and losing weight and managing glucose. Hypothyroidism 85307573 E03.9 stable on levothyrox ine 88mcg daily. Next thyroid panel due in February Benign ess ential hypertension 4503299 I10 Blood pressure is well controlled today at 130/80. Continue nebivolol 5 mg and olmesartan 40 mg daily, also continue furosemide 40 mg daily with potassium supplement Long-term drug therapy 328795239 Z79.899 Routine CBC and CMP are due again in February [id number] Trevin Earl MD [facility] [employer] [address] [place] [address] 03/20/2024 11:34:27 03/20/2024 12:54:10 Type 2 diabetes mellitus without complication 802002747 E11.9 down to 5.9% but cannot take metformin due to adverse GI effects repeat A1c in August Hypothyroidism 52343397 E03.9 stable on levothyrox ine 88mcg daily. Repeat thyroid function panel in August Benign ess ential hypertension 0684842 I10 Blood pressure is borderline at 140/90 but he is making good dietary and exercise efforts for weight loss that will help manage blood pressure. Continue nebivolol 5 mg and olmesartan 40 mg daily, also continue furosemide 40 mg daily with potassium supplement . Long-term drug therapy 535318262 Z79.899 Routine CBC and CMP are due in early 2024 Body mass index 30+ - obesity 728423325 Z68.36 BMI is 36.3 Obesity 552635598 E66.9 discussed healthy diet, exercise, controllin g carbohydra stew and added sugars in the diet Cholesterol screening 27 8979730 Z13.220 fasting lipids due again in august. Screening for malignant neoplasm of prostate 338337542 Z12.5 screening psa due in august [id number] Trevin Earl MD [facility] [address] [place] [address] 09/14/2024 11:59:18 09/14/2024 13:15:04 Body mass index 30+ - obesity 549910795 Z68.36 BMI is 36.7 Obesity 772041105 E66.9 discussed healthy diet, exercise, controllin g carbohydra stew and added sugars in the diet Type 2 alban betes mellitus without complication 457593557 E11.9 down to 6.1% but cannot take metformin due to adverse GI effects. Next set of labs due in February. Patient is able to manage this with diet modificati ons Hypothyroidism 17346719 E03.9 stable on levothyrox ine 88mcg daily. Next set of labs due in February Benign ess ential hypertension 2129079 I10 Blood pressure 138/80, overall stable. We need to continue for weight reduction which will further help his blood pressure. Continue nebivolol 5 mg and olmesartan 40 mg daily, also continue furosemide 40 mg daily with potassium supplement . Long-term drug therapy 159992956 Z79.899 Routine CBC and CMP in February ordered Screening for malignant neoplasm of colon 458746819 Z12.11 Updated colonoscop y is due Bilateral lower leg edema 867170362 R60.0 Refill on a 3 day per week as needed use of metolazone 2.5 mg for the lower extremity edema increase. Hypertriglyceridemia 302 435057 E78.2 Triglyceri yudi are 192. He could take over-the-c ounter Tyler 3 fish oil or flaxseed oil along with diet modificati ons. Repeat fasting lipids in February Renewal of prescription 530218447 Z76.0 Patient likes to have mupirocin ointment on hand for any type of scrape or cut that he gets from work. We will provide a refill for this and he also needs his olmesartan 40 mg refilled [id number] Trevin Earl MD [facility] [place] [address] [place] [address] 04/08/2025 08:40:00 04/08/2025 10:02:03 Obese class II 6266605023 34989 E66.812 E66.3 3287329700 discussed healthy diet, exercise, controllin g carbohydra stew and added sugars in the diet 38.7 Benign ess ential hypertension 0381629 I10 Continue nebivolol 5 mg and olmesartan 40 mg daily, also continue furosemide 40 mg daily with potassium supplement . Blood pressure is borderline today with notable fluid retention. Diuresis will help to bring pressure down to baseline Type 2 alban betes mellitus without complication 143311743 E11.9 down to 6.1% but cannot take metformin due to adverse GI effects. Patient is due for microalbum in urine testing and hemoglobin A1c. He did not complete labs in December when they were ordered Hypothyroidism 08310182 E03.9 stable on levothyrox ine 88mcg daily. labs are overdue Hypertriglyceridemia 302 669976 E78.2 fasting labs due. Long-term drug therapy 569252719 Z79.899 Routine CBC and CMP due Screening for malignant neoplasm of colon 723772620 Z12.11 Updated colonoscop y is due, will order again. Bilateral lower leg edema 886154775 R60.0 Refill on a 3 day per week as needed use of metolazone 2.5 mg for the lower extremity edema increase. Adult heal th examination 280622648 Z00.00 4661942 annual wellness exam Health Concerns Section Related Observation LastModified by Organization Detai ls LastModified Time None Recorded Concern Status LastModified by Organization Details LastModified Time None Recorded Advance Directives Directive N: Payers Insurance Date Sequence Insurance Name Policy Number Policy Garibay Covered Member ID Garibay Member ID Guarantor Name 04/08/2025 1 [facility] [id number] Freddie Ling [id number] Freddie Ling Notes Date Note Type Note Provider Name and Address Organization Details Recorded Time 4 text/html HypertensionReported by Patientelevated today with fluid overload in legs and absence of diuretic in the last month. on olmesartan and nebivolol and past lasix or hctz use. Lower LegReported by PatientHPIFor associated symptoms, patient reportsswelling (weeping). For location, patient reportsbilateral. For quality, patient reportsaching. For severity, patient reportsmild. For duration, patient reports___ weeks. For timing, patient reportschronic. For alleviating factors, patient reportselevation. For aggravating factors, patient reportsstandingandwalking . For previous surgery, patient reportsnone. For prior imaging, patient reportsvenous ultrasound. For working, patient reportsregular duty.pt has ran out of diuretics and needs to resume one of them. ThyroidReported by Patienton thyroid supplement, levothyroxine 88mcg daily. due for labs. Prediabetes hx. NIKOLAS Mccallum Attn: Accounting,[address] [facility], [place], [address], [facility] 10/09/2023 00:55:50 4 text/html HypertensionReported by PatientPatient has underlying hypertension and is taking his medications correctly DiabetesReported by PatientPatient also has new diagnosis of diabetes and is taking metformin as directed ThyroidReported by Patienton thyroid supplement, levothyroxine 88mcg daily. pt. states that when we went to the hospital states that he went in with Hand pain/swelling states that he will see ortho on January 06, states that he was also having some leg/feet swelling also states that they also did Xray, Mri as well as Blood work. 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, [place], [address], [facility] 01/09/2024 09:07:28 4 text/html HypertensionReported by PatientPatient has underlying hypertension and is taking his medications correctly DiabetesReported by PatientPatient also has new diagnosis of diabetes and had to stop metformin due to GI side effects. He has radically changed his diet lowering carbs and sugars and losing weight and having very good glucose management ThyroidReported by Patienton thyroid supplement, levothyroxine 88mcg daily. NIKOLAS Mccallum Attn: Accounting,[address], [place], [address], [facility] 04/11/2024 11:44:36 5 text/html HypertensionReported by PatientPatient has underlying hypertension and is taking his medications correctly DiabetesReported by PatientPatient also has new diagnosis of diabetes and had to stop metformin due to GI side effects. He has radically changed his diet lowering carbs and sugars and losing weight and having very good glucose management ThyroidReported by Patienton thyroid supplement, levothyroxine 88mcg daily. left hand/wrist pain still flaring up at times. NIKOLAS Mccallum Attn: Accounting,[address], [place], [address], [facility] 10/04/2024 22:37:59 5 text/html HypertensionReported by PatientHPIFor duration, patient reportshas noted for years. For alleviating factors, patient reportsmedication.Patient has underlying hypertension and is taking his medications correctly DiabetesReported by PatientHPIFor self care, patient reportsnot taking aspirin daily. For duration, patient reportschronic. For control, patient reportsusually well controlled. For compliance, patient reportscompliant with medications. ThyroidReported by PatientHPIFor context, patient reportshistory of hypothyroidism. For quality, patient reportsnot changing. For duration, patient reportsconstant. For onset/timing, patient reportsstill present. For modifying factors, patient reportsmedication.on thyroid supplement, levothyroxine 88mcg daily. He didnt get his labs done, I closed them and he will need a new order today. Also, didnt get colonoscopy and I gave him the order again to call and schedule. NIKOLAS Mccallum Attn: Accounting,[address], [place], [address], [facility] 04/08/2025 22:07:10
[2025-04-22 18:32] VITALS: BP 133/69; PULSE 69; RESP 20; TEMP 36.4; O2SAT 100
--- NOTE | 2025-04-22 18:34 | ED.EXTPRO ---
HPI - Extremity Problem General Chief complaint: Extremity Problem,Nontraumatic <Jeanine Vega PA-C - Last Filed: 05/01/25 15:10> Stated complaint: bilateral leg swelling <Jeanine Vega PA-C - Last Filed: 05/01/25 15:10> Time Seen by Provider: 04/22/25 18:34 <Jeanine Vega PA-C - Last Filed: 05/01/25 15:10> Focused HPI: This is a 59 year old male that presents to the ER for lower extremity edema. Reports this has been an ongoing problem for him. Has been evaluated for this several times. Worsening recently with pain in the left leg. GENERAL: Well-appearing, well-nourished, and in no acute distress. HEAD: Normocephalic, atraumatic. CHEST: No respiratory distress. HEART: Regular rate NEURO: ?Alert and oriented x3. Patient screened in triage and initial orders placed.? ?Additional care and disposition to be based upon?diagnostic testing and treatment. <Jeanine Vega PA-C - Last Filed: 05/01/25 15:10> History of Present Illness HPI Narrative: Agree with the above following additions/corrections: Patient with PMH HTN and DM presents with bilateral leg swelling, though left > right. Denies shortness of breath. Left is causing pain. This has happened before. Patient had been seen in the ED at that time. He reports that the medication he was prescribed (Lasix/furosemide) by the ED doctor was not able to be filled/dispensed by the [facility] pharmacy for unclear reasons. Discharge instructions had noted to hold HCTZ and take the Lasix. Patient states his PCP Charis Alvarado reviewed this on 04/08 and noted that it didn't make sense because he had not actually actively been on the HCTZ for awhile, that it being on his med list at the time was an old record. He trialed compression socks but it caused his skin to tear which is where he now has a weaping wound. Has never seen a vascular surgeon. No history dvt/PE. Not on anticoagulation. No fevers or chills. He denies currently being on a diuretic. <Katy Urbina MD - Last Filed: 04/23/25 18:28> Related Data Home medications: Home Medications ?Medication ?Instructions ?Recorded ?Confirmed ?Last Taken ?Type levothyroxine 88 mcg capsule 88 mcg PO DAILY 02/02/20 01/07/24 12/27/23 History nebivolol 5 mg tablet (Bystolic) 5 mg PO DAILY 02/02/20 01/07/24 12/27/23 History olmesartan 40 mg tablet 40 mg PO DAILY 02/02/20 01/07/24 12/27/23 History metformin 500 mg tablet,extended 500 mg PO QACDINNER 12/28/23 01/07/24 12/27/23 17:00 History release 24 hr mupirocin 2 % topical ointment 1 applic topical DAILY PRN Skin 12/28/23 01/07/24 Unknown History Irritation potassium chloride 10 mEq 10 meq PO DAILY 12/28/23 01/07/24 12/27/23 History tablet,extended release <Jeanine Vega PA-C - Last Filed: 05/01/25 15:10> Allergies/Adverse reactions: Allergies Allergy/AdvReac Type Severity Reaction Status Date / Time Penicillins Allergy Unknown Unknown Verified 04/22/25 18:35 <Jeanine Vega PA-C - Last Filed: 05/01/25 15:10> Review of Systems Review of Systems: All systems reviewed & are unremarkable except as noted in HPI and below <Jeanine Vega PA-C - Last Filed: 05/01/25 15:10> [facility] Past Medical History Medical History: Medical History Arthritis of wrist, left, degenerative Septic arthritis of wrist, left Venous stasis dermatitis of both lower extremities Pre-diabetes HLD (hyperlipidemia) Hypothyroid Adult BMI 35.0-35.9 kg/sq m Umbilical hernia with obstruction HTN (hypertension) Kidney stone <DWAIN Waggoner Last Filed: 05/01/25 15:10> Surgical History Surgical History: Surgical History History of ventral hernia repair 05/03/20 Laparoscopic Incarcerated ventral hernia repair with Symbotex mesh, da Josefa assisted History of surgery on arm History of colonoscopy <Jeanine Vega PA-C - Last Filed: 05/01/25 15:10> Family History Family History: Family History Father Diabetes mellitus Hypertension Dementia Mother Lung cancer Sibling Diabetes mellitus <Jeanine Vega PA-C - Last Filed: 05/01/25 15:10> Social History Social History: Social History Social History: Lives at home with his son and . Surrogate decision maker: Adela Ling. Code Status: Full Code. 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 HEAD: Normocephalic, atraumatic. EYES: Non injected, non icteric ENT: Nares clear, no rhinorrhea or epistaxis. Gross auditory acuity intact. NECK: Supple. No meningismus. CHEST: Speaking in full sentences. No respiratory distress. HEART: Regular rate and rhythm. . ABDOMEN: Obese but Soft, nondistended. No rigidity or guarding. Not peritoneal EXTREMITIES: Palpable DP pulses, Left palpably stronger than right. Pedal edema bilaterally, 2+ pitting. Significant venous stasis dermatitis bilaterally. Left lower extremity > right lower extremity. There is mild warmth of the bilateral erythematous regions but appears hyperemic rather than frankly cellulitic. SKIN: Warm, dry. Significant skin thickening throughout with dry scaly peeling skin particularly appreciated along medial an lateral aspect of left ankle. There is also a 4cm x3cm ulcerated superficial wound along left anterolateral aspect of mid to distal left lower extremity. NEURO: No focal deficits. Alert and oriented. Answering questions. Following commands. Normal speech without aphasia or dysarthria. PSYCH: Normal mood and affect. <Katy Urbina MD - Last Filed: 04/23/25 18:28> Course Vital Signs Vital signs: Vital Signs Temperature 97.5 F L 04/22/25 18:32 Pulse Rate 69 04/22/25 18:32 Respiratory Rate 20 04/22/25 18:32 Blood Pressure 133/69 04/22/25 18:32 Pulse Oximetry 100 04/22/25 18:32 Oxygen Delivery Room Air 04/22/25 18:32 Temperature 97.5 F L 04/22/25 18:32 Pulse Rate 78 04/23/25 01:54 Respiratory Rate 16 04/23/25 01:54 Blood Pressure 140/63 04/23/25 01:54 Pulse Oximetry 99 04/23/25 01:54 Oxygen Delivery Room Air 04/23/25 00:49 <Jeanine Vega PA-C - Last Filed: 05/01/25 15:10> Vital Signs Temperature 97.5 F L 04/22/25 18:32 Pulse Rate 69 04/22/25 18:32 Respiratory Rate 20 04/22/25 18:32 Blood Pressure 133/69 04/22/25 18:32 Pulse Oximetry 100 04/22/25 18:32 Oxygen Delivery Room Air 04/22/25 18:32 Temperature 97.5 F L 04/22/25 18:32 Pulse Rate 78 04/23/25 01:54 Respiratory Rate 16 04/23/25 01:54 Blood Pressure 140/63 04/23/25 01:54 Pulse Oximetry 99 04/23/25 01:54 Oxygen Delivery Room Air 04/23/25 00:49 <Katy Urbina MD - Last Filed: 04/23/25 18:28> MDM - Extremity (Nontraumatic) MDM Narrative Medical decision making narrative: Patient presents with bilateral lower extremity swelling, though left greater than right. Seen for this previously in the ED. Per review it seems he was advised at that time to use compression stockings and for a brief period hold HCTZ and trial Lasix. He reports [facility] did not fill the rx for Lasix at that time for unclear reasons and he reports in follow up appointment with PCP Charis Alvarado, he was told that the HCTZ on his medication list was old, he had not been on it at the time. He denies currently being on Lasix or any diuretic. Reports trialing compression stockings but that it resulted in a skin tear. Has never seen vascular surgery. Reports history of htn and DM (EMR PMH lists prediabetes, last A1c in record was awhile ago). In the emergency department they are afebrile with vital signs within normal limits. Chest x-ray and BNP normal. D dimer normal. ESR only mildly elevated. CRP normal. Patient's wound does not appear infected. Legs appear to be more consistent with venous stasis dermatitis with general lyphedema rather than cellulitis and/or DVT or other. Discharge plan was to prescribe short course of Lasix and have patient f/u with PCP and obtain referral to vascular surgeon and possibly follow up in wound clinic. His medication list in [place] instructions therefore had advised taking short course of Lasix and his medication list had been updated by me to reflect what he had stated ( not on Lasix and not on HCTZ). [facility] and said [facility] furosemide 40mg daily (90 day supply picked up on 04/10) with potassium. GIven this, I did advise that they discontinue/not fill the Rx I had electronically sent. Patient advised that he has this medication and should be taking it. <Katy Urbina MD - Last Filed: 04/23/25 18:28> Differential Diagnosis Differential diagnosis: Likely cellulitis, superficial thrombophlebitis, lower extremity edema, deep vein thrombosis of lower extremity and other (heart failure; lymphedema; diabetic wound; skin tear; venous stasis) <Katy Urbina MD - Last Filed: 04/23/25 18:28> Medical Records Attestation: I reviewed the patient's medical records. <Katy Urbina MD - Last Filed: 04/23/25 18:28> Medical records narrative: ED visit for similar complaint reviewed <Katy Urbina MD - Last Filed: 04/23/25 18:28> Lab Data Attestation: I reviewed the patient's lab results. <Katy Urbina MD - Last Filed: 04/23/25 18:28> Lab results narrative: CBC generally unremarkable. Chemistry without marked abnormalities. <Katy Urbina MD - Last Filed: 04/23/25 18:28> Result diagrams: 04/22/25 23:13 04/22/25 23:13 <Jeanine Vega PA-C - Last Filed: 05/01/25 15:10> Labs: Lab Results 04/22/25 04/22/25 Range/Units 23:12 23:13 WBC 7.2 (4.5-10.0) K/mm3 RBC 4.71 (4.6-6.20) M/mm3 Hgb 14.1 (14.0-18.0) g/dL Hct 42.9 (42.0-52.0) % MCV 91.1 (80-100) fl MCH 29.9 (26-34) pg MCHC 32.9 (32-36) g/dl RDW 13.0 (11.5-14.5) % Plt Count 217 (150-375) k/mm3 MPV 9.7 (7.4-10.4) fl Immature Gran % (Auto) 0.4 (0-0.5) % Neut % (Auto) 51.7 (45.5-73.1) % Lymph % (Auto) 33.2 (18.3-44.2) % [place] % (Auto) 12.2 H (2.6-8.5) % Eos % (Auto) 1.8 (0-4.4) % Baso % (Auto) 0.7 (0.2-1.2) % Lymph # (Auto) 2.39 (0.9-3.2) K/mm3 [place] # (Auto) 0.9 H (0.1-0.6) K/mm3 Eos # (Auto) 0.1 (0-0.3) K/mm3 Baso # (Auto) 0.1 (0.0-0.1) K/mm3 Abs Immat Gran (auto) 0.03 (0.00-0.031) K/mm3 Absolute Neuts (auto) 3.7 (1.3-6.7) K/mm3 Absolute Nucleated RBC 0.000 (0.0-0.012) K/mm3 Nucleated RBC % 0.0 (0.0-0.2) % ESR 22 H (0-20) mm/hr PT 14.0 (11.1-14.7) Seconds INR 1.1 APTT 28.4 (22.3-36.8) Seconds D-Dimer 0.36 (<0.48) ug/mL Sodium 135 L (137-145) mmol/L Potassium 3.6 (3.4-5.0) mmol/L Chloride 99 (98-107) mmol/L Carbon Dioxide 26 (22-30) mmol/L Anion Gap 10 (4-12) mmol/L BUN 34 H D (9-20) mg/dL Creatinine 1.14 (0.7-1.3) mg/dL Estim Creat Clear Calc 87 ml/min Estimated GFR > 60 (59 - ) Glucose 130 H (65-110) mg/dL Calcium 8.8 (8.4-10.2) mg/dL Total Bilirubin 0.6 (0.2-1.3) mg/dL AST 39 (17-59) U/L ALT 55 H (6-50) U/L Alkaline Phosphatase 89 (38-126) U/L C-Reactive Protein 0.6 (<1.0) mg/dL NT-Pro-B Natriuret Pep < 20 (19.9-100) pg/mL Total Protein 7.8 (6.3-8.2) g/dL Albumin 4.4 (3.5-5.1) g/dL <Jeanine Vega PA-C - Last Filed: 05/01/25 15:10> Lab Results 04/22/25 04/22/25 Range/Units 23:12 23:13 WBC 7.2 (4.5-10.0) K/mm3 RBC 4.71 (4.6-6.20) M/mm3 Hgb 14.1 (14.0-18.0) g/dL Hct 42.9 (42.0-52.0) % MCV 91.1 (80-100) fl MCH 29.9 (26-34) pg MCHC 32.9 (32-36) g/dl RDW 13.0 (11.5-14.5) % Plt Count 217 (150-375) k/mm3 MPV 9.7 (7.4-10.4) fl Immature Gran % (Auto) 0.4 (0-0.5) % Neut % (Auto) 51.7 (45.5-73.1) % Lymph % (Auto) 33.2 (18.3-44.2) % [place] % (Auto) 12.2 H (2.6-8.5) % Eos % (Auto) 1.8 (0-4.4) % Baso % (Auto) 0.7 (0.2-1.2) % Lymph # (Auto) 2.39 (0.9-3.2) K/mm3 [place] # (Auto) 0.9 H (0.1-0.6) K/mm3 Eos # (Auto) 0.1 (0-0.3) K/mm3 Baso # (Auto) 0.1 (0.0-0.1) K/mm3 Abs Immat Gran (auto) 0.03 (0.00-0.031) K/mm3 Absolute Neuts (auto) 3.7 (1.3-6.7) K/mm3 Absolute Nucleated RBC 0.000 (0.0-0.012) K/mm3 Nucleated RBC % 0.0 (0.0-0.2) % ESR 22 H (0-20) mm/hr PT 14.0 (11.1-14.7) Seconds INR 1.1 APTT 28.4 (22.3-36.8) Seconds D-Dimer 0.36 (<0.48) ug/mL Sodium 135 L (137-145) mmol/L Potassium 3.6 (3.4-5.0) mmol/L Chloride 99 (98-107) mmol/L Carbon Dioxide 26 (22-30) mmol/L Anion Gap 10 (4-12) mmol/L BUN 34 H D (9-20) mg/dL Creatinine 1.14 (0.7-1.3) mg/dL Estim Creat Clear Calc 87 ml/min Estimated GFR > 60 (59 - ) Glucose 130 H (65-110) mg/dL Calcium 8.8 (8.4-10.2) mg/dL Total Bilirubin 0.6 (0.2-1.3) mg/dL AST 39 (17-59) U/L ALT 55 H (6-50) U/L Alkaline Phosphatase 89 (38-126) U/L C-Reactive Protein 0.6 (<1.0) mg/dL NT-Pro-B Natriuret Pep < 20 (19.9-100) pg/mL Total Protein 7.8 (6.3-8.2) g/dL Albumin 4.4 (3.5-5.1) g/dL <Katy Urbina MD - Last Filed: 04/23/25 18:28> Imaging Data Radiologist's impression: IMPRESSION: No acute lung findings. <Katy Urbina MD - Last Filed: 04/23/25 18:28> Discharge Plan Discharge Clinical Impression: Lymphedema of both lower extremities, Venous stasis dermatitis of both lower extremities <Jeanine Vega PA-C - Last Filed: 05/01/25 15:10> Patient Disposition: Home <Jeanine Vega PA-C - Last Filed: 05/01/25 15:10> Condition: Stable <Jeanine Vega PA-C - Last Filed: 05/01/25 15:10> Instructions: Antibiotic Form, Stasis Dermatitis (DC), Leg Edema (ED), Lymphedema (ED), Venous Insufficiency (DC), Acute Wounds (DC) <Jeanine Vega PA-C - Last Filed: 05/01/25 15:10> Additional Instructions: <del>You</del> <del>can</del> <del>trial</del> <del>the</del> <del>diuretic</del> <del>(water</del> <del>pill)</del> <del>furosemide/Lasix</del> <del>for</del> <del>the</del> <del>swelling</del> <del>in</del> <del>your</del> <del>legs.</del> [facility] and said that [facility] your prescription for furosemide/Lasix 40mg on 04/10/25 so disregard the instructions below as the prescription I electronically submitted has been cancelled. Continue to take this medication with your potassium. You would likely benefit from seeing a vascular surgeon and/or undergoing further workup for the venous stasis/vascular insufficiency. Your PCP may help arrange this referral. Continue taking your diabetic medication as prescribed. Continue taking all of your other medications as prescribed. Could also consider seeing wound care for other expert opinions and recommendations. <Jeanine Vega PA-C - Last Filed: 05/01/25 15:10> Patient Language: Yakut <Jeanine Vega PA-C - Last Filed: 05/01/25 15:10> Prescriptions: New furosemide [Lasix] 20 mg tablet 20 mg PO DAILY Qty: 14 0RF Discontinued hydrochlorothiazide 25 mg tablet 25 mg PO DAILY furosemide [Lasix] 40 mg tablet 40 mg PO DAILY Qty: 14 0RF No Action levothyroxine 88 mcg capsule 88 mcg PO DAILY olmesartan 40 mg tablet 40 mg PO DAILY Bystolic 5 mg tablet 5 mg PO DAILY ibuprofen 600 mg tablet 600 mg PO TID PRN (Reason: pain and swelling) Qty: 60 1RF potassium chloride 10 mEq tablet extended release 10 meq PO DAILY metformin 500 mg tablet extended release 24 hr 500 mg PO QACDINNER mupirocin 2 % ointment 1 applic topical DAILY PRN (Reason: Skin Irritation) <Jeanine Vega PA-C - Last Filed: 05/01/25 15:10> Follow-up/Referrals: [facility] [Other] Referral Note: Saturday: 7 a.m. to 3:30 p.m. Mitzi,DWAIN Vizcaino [Primary Care Provider, Unknown] <Jeanine Vega PA-C - Last Filed: 05/01/25 15:10> Stand Alone Forms: Work/School Release IP <Jeanine Vega PA-C - Last Filed: 05/01/25 15:10> Time of Disposition: 01:08 <Jeanine Vega PA-C - Last Filed: 05/01/25 15:10> 01:08 <Katy Urbina MD - Last Filed: 04/23/25 18:28>
[2025-04-22 23:19] LABS: Hematocrit 42.9 % (42.0-52.0); Hemoglobin 14.1 g/dL (14.0-18.0); Immature Granulocyte Percent A 0.4 % (0-0.5); Lymphocytes Absolute Auto 2.39 K/mm3 (0.9-3.2); Mean Corpuscular HGB Conc 32.9 g/dl (32-36); Mean Corpuscular Hemoglobin 29.9 pg (26-34); Mean Corpuscular Volume 91.1 fl (80-100); Nucleated Red Blood Cells Absolute Auto 0.000 K/mm3 (0.0-0.012); Nucleated Red Blood Cells Perc 0.0 % (0.0-0.2); Platelet Count Result 217 k/mm3 (150-375); Red Blood Count 4.71 M/mm3 (4.6-6.20); White Blood Count 7.2 K/mm3 (4.5-10.0)
[2025-04-22 23:32] LABS: INR 1.1; Prothrombin Time 14.0 Seconds (11.1-14.7)
[2025-04-22 23:33] LABS: Partial Thromboplastin Time 28.4 Seconds (22.3-36.8)
[2025-04-22 23:38] LABS: Alanine Aminotransferase 55 U/L (6-50); Albumin Level 4.4 g/dL (3.5-5.1); Alkaline Phosphatase 89 U/L (38-126); Anion Gap 10 mmol/L (4-12); Aspartate Amino Transferase 39 U/L (17-59); Bilirubin,Total 0.6 mg/dL (0.2-1.3); Blood Urea Nitrogen 34 mg/dL (9-20); Calcium 8.8 mg/dL (8.4-10.2); Carbon Dioxide 26 mmol/L (22-30); Chloride 99 mmol/L (98-107); Estimated CRCL calculation 87 ml/min; Estimated Glomerular Filt Rate > 60; Glucose 130 mg/dL (65-110); Potassium 3.6 mmol/L (3.4-5.0); Sodium 135 mmol/L (137-145); Total Protein 7.8 g/dL (6.3-8.2)
[2025-04-22 23:46] LABS: NT Pro B Type Natriuretic Pept < 20 pg/mL (19.9-100)
[2025-04-23 00:49] VITALS: BP 122/61; PULSE 61; RESP 20; O2SAT 98
[2025-04-23 01:05] LABS: CRP 0.6 mg/dL (<1.0)
[2025-04-23 01:54] VITALS: BP 140/63; PULSE 78; RESP 16; O2SAT 99
--- NOTE | 2025-04-23 01:56 | PC.NURSE ---
legs russ wrapped
== END 2025-04-23 01:56 | disposition home or self-care (01) ==
PROVIDERS: Physician Assistant; Emergency Provider Student in an Organized Health Care Education/Training Program; PCP Physician Assistant
DX: I89.0 Lymphedema, not elsewhere classified (principal); I87.2 Venous insufficiency (chronic) (peripheral); I10 Essential (primary) hypertension; E11.9 Type 2 diabetes mellitus without complications; M19.032 Primary osteoarthritis, left wrist; E78.5 Hyperlipidemia, unspecified; E03.9 Hypothyroidism, unspecified; Z87.442 Personal history of urinary calculi; Z79.84 Long term (current) use of oral hypoglycemic drugs; Z79.899 Other long term (current) drug therapy
CPT/HCPCS: 36415; 71046; 80053; 83880; 85025; 85380; 85610; 85652; 85730; 86140; 99283; A9270